=== PATIENT | male | born 1955 | race Caucasian/White ===

== ENCOUNTER 2021-10-23 11:04 | Emergency (ER) | payer OTHER, MEDICAID, SELFPAY ==
[2021-10-23] VITALS (10 sets, daily range): BP systolic 105–134; BP diastolic 70–83; PULSE 80–108; RESP 12–20; TEMP 36.6; O2SAT 97–100
--- OUTSIDE RECORDS SUMMARY | 2021-10-23 11:20 | XMS_ITS ---
:1955 Author Care Team Providers Name Role Phone RAE KLEIN Primary Care Provider [phone] DR. JEFFREY POLLOCK Referring Provider [phone] RAE KLEIN Referring Provider [phone] RAE KLEIN (DIRECT) Primary Care Provider [phone] RUDI KUMAR MD Surgical Oncologist [phone] Allergies Code Code Name Reaction Severity Status Onset System 61304 RxNorm Venlafaxine Abdominal Pain Moderate Active 20 101394 RxNorm Chantix Vomiting Severe Active ? 84296 RxNorm Gabapentin ? ? Active ? 5640 RxNorm Ibuprofen ? ? Active ? 7531 RxNorm Nortriptyline ? ? Active ? 67926 RxNorm Percocet Vomiting Severe Active ? 59278 RxNorm Prozac ? ? Active ? [id number] RxNorm Spinach Vomiting ? Active ? 08300 RxNorm Tizanidine Other Severe Active ? Wellbutrin Hallucinations ? Active ? Medications Name Status Start Date Stop Date ? ? Advair Diskus 100 mcg-50 mcg/dose powder for inhalation Complete d 12/08/2015 06/21/2016 Inhale 1 puff twice a day by inhalation route for 30 days. Advair Diskus 250 mcg-50 mcg/dose powder for inhalation Complete d ? 05/24/2017 Inhale 1 puff twice a day by inhalation route for 30 days. Advair Diskus 500 mcg-50 mcg/dose powder for inhalation Complete d ? 02/11/2021 Inhale 1 puff twice a day by inhalation route for 30 days. albuterol sulfate 2.5 mg/3 mL (0.083 %) solution for nebulizatio n Active ? Not available Inhale 3 mL every 2 hours by nebulization route as needed. albuterol sulfate HFA 90 mcg/actuation aerosol inhaler Active ? Not available inhale 2 puffs by mouth every 4 hours if needed amitriptyline 10 mg tablet Completed ? 05/11 Take 1 tablet every day by oral route. Asprin Ec Low Dose 81 mg tablet,delayed release Active ? Not available Take 1 tablet twice a day by oral route. Atrovent HFA 17 mcg/actuation aerosol inhaler Completed ? 05/14/2018 Inhale 2 puffs 3 times a day by inhalation route as directed fo r 30 days. azelastine 137 mcg (0.1 %) nasal spray aerosol Completed ? 10/30/2020 [place] 2 sprays twice a day by intranasal route. buspirone 7.5 mg tablet Completed ? 02/20/20 18 Take 1 tablet twice a day by oral route as directed for 30 days . carboplatin Active ? Not available celecoxib 200 mg capsule Completed ? 019 Take 1 capsule every day by oral route. Chantix Starting Month Box 0.5 mg (11)-1 mg (42) tablets in dose pack Completed ? 01/12/2019 Take 1 startr pk by oral route. clindamycin HCl 150 mg capsule Completed ? 0 02/07/2017 Take 1 capsule 3 times a day by oral route for 10 days. Combivent Respimat 20 mcg-100 mcg/actuation solution for inhalat ion Completed ? 08/16/2018 Inhale 1 puff 3 times a day by inhalation route as directed. Compazine 10 mg tablet Active ? Not avail able Take 1 tablet 3 times a day by oral route as needed. cyclobenzaprine 5 mg tablet Completed ? 11/13 Take 1 tablet 3 times a day by oral route. Cymbalta 30 mg capsule,delayed release Completed ? 12/15/2018 Take 1 capsule every day by oral route. Debrox 6.5 % ear drops Completed ? 8 INSTILL 5 DROPS INTO AFFECTED EAR(S) BY OTIC ROUTE 1 TIMES PER bedtime 1x per week desipramine 25 mg tablet Completed ? 019 Take 1 tablet twice a day by oral route for 14 days. desipramine 50 mg tablet Completed ? 019 Take 1 tablet twice a day by oral route for 28 days. diclofenac sodium 75 mg tablet,delayed release Completed ? 02/11/2021 Take 1-2 tablets daily as needed doxycycline hyclate 100 mg tablet Completed ? 02/07/2017 Take 1 tablet twice a day by oral route for 1 day. Eliquis 5 mg tablet Completed ? 03/25/2019 Take 1 tablet twice a day by oral route for 30 days. famotidine 40 mg tablet Completed ? 04/13/20 16 Flonase Allergy Relief 50 mcg/actuation nasal spray,suspension C ompleted ? 10/30/2020 [place] 1 spray every day by intranasal route. furosemide 40 mg tablet Completed ? 02/04/20 20 Take 1 tablet by oral route. hydrocodone 5 mg-acetaminophen 325 mg tablet Completed ? 10/10/2019 Take 1 tablet 3 times a day by oral route for 14 days. hydrocodone 7.5 mg-acetaminophen 325 mg tablet Completed ? 12/03/2019 Take 1 tablet every 12 hours by oral route. ipratropium 0.5 mg-albuterol 3 mg (2.5 mg base)/3 mL nebulizatio n soln Active ? Not available Inhale 3 mL 4 times a day by nebulization route as needed for 3 0 days. Keflex 500 mg capsule Completed 02/12/2018 02/21/2018 Take 1 capsule every 6 hours by oral route for 10 days. Kenalog 40 mg/mL suspension for injection Completed ? 02/16/2018 Take 40 mg every day by injection route as directed for 1 day. ketorolac 0.4 % eye drops Completed ? 2015 ketorolac 10 mg tablet Completed ? 6 Keytruda Active ? Not available Lasix Active ? Not available Lasix 20 mg tablet Completed ? 01/12/2019 Take 2 tablets every day by oral route as directed for 5 days. Take in the morning Levaquin 750 mg tablet Completed ? 8 Take 1 tablet every day by oral route as directed. levofloxacin 500 mg tablet Completed ? 04/13 Linzess 145 mcg capsule Completed 02/16/2018 02/22/20 18 Take 1 capsule every day by oral route as directed for 30 days. lisinopril 10 mg tablet Completed 03/18/2021 03/18/20 21 take 1 tablet by mouth once daily lisinopril 20 mg tablet Completed ? 03/24/20 20 take 1 tablet by mouth once daily lisinopril 5 mg tablet Active ? Not avail able take 1 tablet by mouth once daily melatonin 3 mg tablet Completed ? 07/14/2017 Take 1 tablet every day by oral route. methylprednisolone 4 mg Completed ? 04/13/20 16 tablets in a dose pack Miralax 17 gram oral powder packet Completed ? 05/11/2017 Take 1 packet twice a day by oral route. Miralax 17 gram/dose oral powder Completed ? 12/30/2016 Use once daily as needed for constipation morphine 15 mg immediate release tablet Completed ? 05/24/2017 Take 0.5 tablets every 4 hours by oral route. Nicoderm CQ 21 mg/24 hr daily transdermal patch Completed 01/13/2016 04/14/2016 Apply 1 patch every day by transdermal route for 30 days. nortriptyline 10 mg capsule Completed ? 11/13 Take 1-2 capsules at bedtime. ofloxacin 0.3 % eye drops Completed ? 2015 omeprazole 20 mg capsule,delayed release Completed ? 07/03/2020 Take 1 capsule every day by oral route for 90 days. oxycodone 5 mg tablet Completed ? 02/21/2018 Take 1 tablet 3 times a day by oral route with meals for 6 days . paroxetine 20 mg tablet Completed ? 07/10/20 18 start 0.5 tabs a day for 1 week then may increase to 1 tab a da y take at dinner time if this medicine makes you tire. Pepcid 20 mg tablet Completed ? 12/30/2016 Take 1 tablet twice a day by oral route before meals for 30 day s. prednisolone acetate 1 % eye Completed ? drops,suspension prednisone 10 mg tablet Completed ? 05/11/20 17 6 pills day 1, 5 pills day 2 then reduce med by one pill daily prednisone 20 mg tablet Completed ? 04/19/20 19 Take 1 tablet every day by oral route in the morning for 5 days . prednisone 50 mg tablet Completed ? 03/10/20 18 take 1 pill daily for 4 days., then 1/2 pill daily for 4 days Serevent Diskus Completed ? 02/11/2021 Serevent Diskus 50 mcg/dose powder for inhalation Active ? Not available inhale 1 puff by mouth twice a day Spiriva Respimat 2.5 mcg/actuation solution for inhalation Activ e ? Not available Inhale 2 puffs every day by inhalation route for 30 days. Stiolto Respimat 2.5 mcg-2.5 mcg/actuation solution for inhalati on Completed ? 10/02/2020 Inhale 2 puffs every day by inhalation route. Taxol 6 mg/mL concentrate,intravenous Active ? Not available Inject by intravenous route. tizanidine 4 mg tablet Completed ? Take 1 tablet every 6 hours by oral route. tramadol 50 mg tablet Completed ? 03/10/2018 Take 1 tablet twice a day by oral route as needed for 5 days. Trelegy Ellipta 100 mcg-62.5 mcg-25 mcg powder for inhalation Co mpleted ? 02/04/2020 Inhale 1 puff every day by inhalation route. Tylenol 500 mg tablet Completed 03/29/2018 03/12/2019 Take 2 tablets every 8 hours by oral route as needed. Tylenol-Codeine #3 300 mg-30 mg tablet Completed ? 02/16/2018 Take 1 tablet every 6 hours by oral route as needed for 3 days. venlafaxine ER 37.5 mg capsule,extended release 24 hr Completed ? 07/01/2020 Take 1 capsule every day by oral route with meals for 7 days. venlafaxine ER 75 mg capsule,extended release 24 hr Completed ? 07/01/2020 Take 1 capsule every day by oral route for 30 days. Voltaren 1 % topical gel Completed ? 019 APPLY 2 GRAM TO THE AFFECTED AREA(S) BY TOPICAL ROUTE 4 TIMES P ER DAY Zithromax Z-Dakota 250 mg tablet Completed ? TAKE 2 TABLETS (500 MG) BY ORAL ROUTE O NCE DAILY FOR 1 DAY THEN 1 TABLET (250 MG) BY ORAL ROUTE ONCE DAILY FOR 4 DAYS Notes: medication reviewed 16:45 Problems Name Status Onset Date Source ? Eruption Active 09/15/2015 ? Pain in Right Hand Active 09/15/2015 ? Chronic Obstructive Lung Disease Active 11/14/2015 ? Adult Health Examination Active 04/14/2016 ? Knee Pain Unknown 04/15/2016 ? Osteoarthritis of Knee Active 04/16/2016 ? Chronic Back Pain Active 05/05/2016 ? Cellulitis of Skin Unknown 12/30/2016 ? Memory Impairment Active 12/30/2016 ? Injury of Kidney Active 12/30/2016 ? Chronic Neck Pain Active 02/07/2017 ? Pulmonary Embolism Active 05/08/2017 ? Varicose Veins of Lower Extremity Active 05/24/2017 ? Atelectasis Unknown 05/24/2017 ? Constipation Unknown 05/24/2017 ? Fracture of Cervical Spine Unknown 06/03/2017 ? Fracture of Cervical Spine Unknown 09/08/2017 ? Achilles Tendinitis Active 01/02/2018 ? Fracture of Rib Active 02/09/2018 ? Anxiety Active 03/13/2018 ? Closed Fracture of Shaft of Ulna Active 04/10/2018 ? Hyperlipidemia Active 12/01/2018 ? Depressive Disorder Active 03/24/2020 ? Chronic Pain Active 10/05/2020 ? Nodule of Lung Active 08/24/2021 ? Squamous Cell Carcinoma of Lung Active 09/08/2021 ? Tobacco User Active ? ? Headache Disorder Active ? ? Cataract Unknown ? ? Hypertensive Disorder Active ? ? Gastroesophageal Reflux Disease Active ? ? Notes: memory loss Procedures Date Name Performed by ? 02/28/2019 Removal of Inferior Vena Caval Filter In formation not available 05/01/2017 Vena Cava Filter Information not avai lable Notes: POST OP PE , IVC f ilter placed as could not start anticoagulation postoperatively ? Shoulder Joint Surgery Information not a vailable ? Orthopedic Surgery Information not avai lable Notes: Foot surgery ? Cataract Surgery Information not avai lable Notes: right ? Carpal Tunnel Surgery Information not av ailable Notes: right 04/14/2016 XR, Knee, 4 or More View DO Not Use [facility] [address] [place] [address] (Work [address]) 02/07/2017 XR, Cervical Spine, 2 or 3 View DO Not U se [facility] [address] [place] [address] (Work Place) 05/11/2017 XR, Chest, 2 View DO Not Use [facility] [address] [place] [address] (Work Place) 05/24/2017 US, Duplex, Venous, Lower Extremity DO N ot Use [facility] [address], [place] [id number] (Work Place) 05/24/2017 XR, Ribs, Unilateral DO Not Use [facility] [address] [place] [address] (Work Place) 07/26/2017 XR, Neck DO Not Use [facility] [address] [place] [phone] (Work Place) 07/26/2017 XR, Lumbar Spine DO Not Use [facility] [address] [place] [address] (Work Place) 09/08/2017 XR, Cervical Spine DO Not Use [facility] [address] [place] [address] (Work Place) 09/22/2017 XR, Shoulder DO Not Use [facility] [address] [place] [address] (Work Place) 04/03/2018 XR, Forearm [facility] - R adiology [address] [place] [address] (Work Place) 04/10/2018 XR, Forearm [facility] [address] [place] [address] (Work Place) 04/18/2018 XR, Forearm [facility] [address] [place] [address] (Work Place) 05/09/2018 XR, Forearm [facility] [address] [place] [address] (Work Place) 06/05/2018 XR, Forearm [facility] [address] [place] [address] (Work Place) 07/03/2018 XR, [facility] adiology [address] [place] [phone] (Work Place) 07/18/2018 XR, Forearm [facility] [address] [place] [address] (Work Place) 08/01/2018 XR, Lumbosacral Spine, 2 or 3 View, [facility] - Radiology Bending Only [address] [place] [address] (Work Place) 08/01/2018 XR, Cervical Spine, 2 or 3 View [facility] [address] [place] [address] (Work Place) 08/21/2018 XR, Forearm [facility] R adiology [address] [place] [address] (Work Place) 10/02/2018 XR, Forearm [facility] [address] [place] [address] (Work Place) 10/20/2018 XR, Hand, 2 View [facility] [address] [place] [address] (Work Place) 10/25/2018 XR, Finger(s), 2 or More View [facility] [address] [place] [address] (Work Place) 12/01/2018 XR, Lumbosacral Spine, 2 or 3 View, [facility] Radiology Bending Only [address] [place] [address] (Work Place) 12/11/2018 CT, Lumbar Spine, W/o Contrast [facility] - Radiology [address] [place] [address] (Work Place) 01/22/2019 XR, Hip, Unilateral, 2 or 3 View [facility] [address] [place] [address] (Work Place) 03/24/2020 XR, Chest, 2 View [facility] adiology [address] [place] [address] (Work Place) 07/01/2020 Electrocardiogram [facility] - Internal Medic ine [address] [place] [phone] (Wor [place] Place) 04/29/2021 US, Abdominal Aorta [facility] adiology [address] [place] [phone] (Work Place) 04/29/2021 LDCT, Chest, for Lung Cancer Screening D [facility] [place] [address] (Work Place) Notes: 07/14/16 L4-5 laminectomy and fusion with local bone graft by [facility]- Results Lab Results Date Name Specimen Result Interpretation Description Value Range Status Address ? 10/14/2021 CBC W/ [id number] Low Wbc 2.2 10^3/mm^3 4.8-10.8 Fi nal [facility] Auto Diff 10^3/mm^3 Hosp ital Laboratory & Pathology: [address] [place] [address] ? ? [id number] Normal Rbc 4.42 4.20-5.90 [facility]^6/[facility]^3 10^6/mm^3 Hosp ital Laboratory & Pathology: [address] [place] [address] ? ? [id number] Normal Hgb 13.8 g/dL 13.5-17.5 Final Co [facility]age g/dL [facility] Laboratory & Pathology: [address] [place] [address] ? ? [id number] Normal Hct 43 % 40-50 % Final [facility] Laboratory & Pathology: [address] [place] [address] ? ? [id number] High Mcv 97.5 fL 80.0-97.0 Final [facility] Laboratory & Pathology: [address] [place] [address] ? ? [id number] Normal Mch 31.2 pg 27.5-32.1 Final [facility] pg [facility] Laboratory & Pathology: [address] [place] [address] ? ? [id number] Low Mchc 32 g/dL 33-36 g/dL Final [facility] Laboratory & Pathology: [address] [place] [address] ? ? [id number] Normal Rdw 13.4 % 11.6-14.8 Final [facility] Laboratory & Pathology: [address] [place] [address] ? ? [id number] Normal Platel 166 10^3/mm^3 150-400 Final [facility] ets 10^3/mm^3 Hospita l Laboratory & Pathology: [address] [place] [address] 10/14/2021 CBC, [id number] Low %Neutr 26 % 40-75 % Final Co ttage Reflex ophil [facility] Manual Laboratory Diff & Pathology: [address] [place] [address] ? ? [id number] High %Lymph 48 % 20-45 % Final [facility] e ocyte [facility] Laboratory & Pathology: [address] [place] [address] ? ? [id number] Normal %Monoc 10 % 2-10 % Final [facility] Laboratory & Pathology: [address] [place] [address] ? ? [id number] High %Eosin 14 % 1-6 % Final [facility] Laboratory & Pathology: [address] [place] [address] ? ? [id number] ? %Atypi 2 % ? Final [facility] Lymph Laboratory & Pathology: [address] [place] [address] ? ? [id number] Normal Platel normal normal Final [facility] Estimat Laborator y e & Pathology: [address] [place] [address] ? ? [id number] Normal Large absent absent Final [facility] Platele & ts Pathology: [address] [place] [address] ? ? [id number] Normal Platel absent absent Final [facility] Clumps Laboratory & Pathology: [address] [place] [address] 10/14/2021 CMP, [id number] Normal Na 141 mEq/L 136-145 Final [facility] Serum or mEq/L [facility] Plasma Laboratory & Pathology: [address] [place] [address] ? ? [id number] Normal K 4.8 mEq/L 3.5-5.1 Final [facility] mEq/L [facility] Laboratory & Pathology: [address] [place] [address] ? ? [id number] Normal Cl 101 mEq/L 98-107 Final [facility] mEq/L [facility] Laboratory & Pathology: [address] [place] [address] ? ? [id number] Normal Co2 31 mEq/L 21-31 Final [facility] ge mEq/L [facility] Laboratory & Pathology: [address] [place] [address] ? ? [id number] ? Agap 13.7 ? Final [facility] calculation Hospi janneth Laboratory & Pathology: [address] [place] [address] ? ? [id number] High Glu 107 mg/dL 70-100 Final [facility] mg/dL [facility] Laboratory & Pathology: [address] [place] [address] ? ? [id number] Normal Bun 10 mg/dL 7-18 mg/dL Final [facility] Laboratory & Pathology: [address] [place] [address] ? ? [id number] Normal Creat 0.75 mg/dL 0.70-1.30 Final [facility] mg/dL [facility] Laboratory & Pathology: [address] [place] [address] ? ? [id number] ? Bn/cr 13.9 ratio ? Final [facility] Laboratory & Pathology: [address] [place] [address] ? ? [id number] Low Ca 8.2 mg/dL 8.5-10.1 Final [facility] mg/dL [facility] Laboratory & Pathology: [address] [place] [address] ? ? [id number] Normal Alkp 111 U/L 38-126 U/L Final [facility] Laboratory & Pathology: [address] [place] [address] ? ? [id number] Normal Alt 24 U/L 16-63 U/L Final [facility] Laboratory & Pathology: [address] [place] [address] ? ? [id number] Low Ast 13 U/L 15-37 U/L Final [facility] Laboratory & Pathology: [address] [place] [address] ? ? [id number] Normal Tbil 0.3 mg/dL <=1.2 Final [facility] mg/dL [facility] Laboratory & Pathology: [address] [place] [address] ? ? [id number] Low Tp 6.2 g/dL 6.4-8.2 Final [facility] g/dL [facility] Laboratory & Pathology: [address] [place] [address] ? ? [id number] Normal Alb 3.5 g/dL 3.4-5.0 Final [facility] g/dL [facility] Laboratory & Pathology: [address] [place] [address] ? ? [id number] ? Glob 2.74 mg/dL ? Final [facility] Laboratory & Pathology: [address] [place] [address] ? ? [id number] ? A/g 1.3 calc ? Final [facility] Laboratory & Pathology: [address] [place] [address] ? ? [id number] ? Egfraa 126.68 ? Final [facility] Laboratory & Pathology: [address] [place] [address] ? ? [id number] ? Egfrna 104.52 ? Final [facility] Laboratory & Pathology: [address] [place] [address] 10/14/2021 Magnesium [id number] Normal mg 2.0 mg/dL 1.8-2.4 Fin n[facility] mg/dL Hospital or Plasma Laborat ory & Pathology: [address] [place] [address] 10/14/2021 T4, Free, [id number] Low Ft4 0.71 NG/dL 0.76-1.46 Final [facility] Serum NG/dL Hospital Laboratory & Pathology: [address] [place] [address] 10/14/2021 TSH, [id number] Normal Tsh 2.208 mIU/mL 0.340-3.74 Final [facility] Serum or 0 mIU/mL Hospit al Plasma Laboratory & Pathology: [address] [place] [address] 09/29/2021 CBC W/ [id number] Normal Wbc 7.2 10^3/mm^3 4.8-10.8 Fi nal [facility] Auto Diff 10^3/mm^3 Hosp ital Laboratory & Pathology: [address] [place] [address] ? ? [id number] Normal Rbc 5.06 4.20-5.90 Final [facility] 10^6/mm^3 10^6/mm^3 Hosp ital Laboratory & Pathology: [address] [place] [address] ? ? [id number] Normal Hgb 15.8 g/dL 13.5-17.5 Final [facility] g/dL Hospital Laboratory & Pathology: [address] [place] [address] ? ? [id number] Normal Hct 49 % 40-50 % Final [facility] Laboratory & Pathology: [address] [place] [address] ? ? [id number] Normal Mcv 95.8 fL 80.0-97.0 Final [facility] Laboratory & Pathology: [address] [place] [address] ? ? [id number] Normal Mch 31.2 pg 27.5-32.1 Final [facility] pg [facility] Laboratory & Pathology: [address] [place] [address] ? ? [id number] Normal Mchc 33 g/dL 33-36 g/dL Final [facility] Laboratory & Pathology: [address] [place] [address] ? ? [id number] Normal Rdw 13.3 % 11.6-14.8 Final [facility] Laboratory & Pathology: [address] [place] [address] ? ? [id number] Normal Platel 250 10^3/mm^3 150-400 Final [facility] ets 10^3/mm^3 Hospita l Laboratory & Pathology: [address] [place] [address] ? ? [id number] Normal Ne# 4.89 1.20-6.70 Final [facility] 10^3/mm^3 10^3/mm^3 Hosp ital Laboratory & Pathology: [address] [place] [address] ? ? [id number] Normal Ly# 1.75 1.20-3.40 Final [place] 10^3/mm^3 10^3/mm^3 Hosp ital Laboratory & Pathology: [address] [place] [address] ? ? [id number] Normal Mo# 0.47 0.11-0.70 Final [place] 10^3/mm^3 10^3/mm^3 Hosp ital Laboratory & Pathology: [address] [place] [address] ? ? [id number] Normal Eo# 0.10 0.00-0.70 Final [place] 10^3/mm^3 10^3/mm^3 Hosp ital Laboratory & Pathology: [address] [place] [address] ? ? [id number] Normal Ba# 0.02 0.00-0.20 Final [place] 10^3/mm^3 10^3/mm^3 Hosp ital Laboratory & Pathology: [address] [place] [address] ? ? [id number] Normal Neut% 68 % per 100 40-74 % Final [facility] WBC per 100 Hospital WBC Laboratory & Pathology: [address] [place] [address] ? ? [id number] Normal Ly% 24 % per 100 19-48 % Final [facility] WBC per 100 Hospital WBC Laboratory & Pathology: [address] [place] [address] ? ? [id number] Normal Mo% 6.5 % per 100 3.0-10.0 % [place] [facility] WBC per 100 Hospital WBC Laboratory & Pathology: [address] [place] [address] ? ? [id number] Normal Eo% 1.4 % per 100 1.0-7.0 % Final [facility] WBC per 100 Hospital WBC Laboratory & Pathology: [address] [place] [address] ? ? [id number] Normal Ba% 0.3 % per 100 0.0-2.0 % Final [place] WBC per 100 Hospital WBC Laboratory & Pathology: [address] [place] [address] 09/29/2021 Magnesium [id number] Normal mg 2.3 mg/dL 1.8-2.4 Fin al [place] , Serum mg/dL Hospital or Plasma Laborat ory & Pathology: [address] [place] [address] 09/29/2021 CMP, [id number] Normal Na 139 mEq/L 136-145 Final [facility] or mEq/L Hospital Plasma Laboratory & Pathology: [address] [place] [address] ? ? [id number] Normal K 4.4 mEq/L 3.5-5.1 Final [facility] mEq/L [facility] Laboratory & Pathology: [address] [place] [address] ? ? [id number] Normal Cl 100 mEq/L 98-107 Final [facility] mEq/L [facility] Laboratory & Pathology: [address] [place] [address] ? ? [id number] High Co2 34 mEq/L 21-31 Final [facility] ge mEq/L [facility] Laboratory & Pathology: [address] [place] [address] ? ? [id number] ? Agap 8.8 ? Final [facility] calculation Hospi janneth Laboratory & Pathology: [address] [place] [address] ? ? [id number] High Glu 101 mg/dL 70-100 Final [facility] mg/dL [facility] Laboratory & Pathology: [address] [place] [address] ? ? [id number] Normal Bun 11 mg/dL 7-18 mg/dL Final [facility] Laboratory & Pathology: [address] [place] [address] ? ? [id number] Normal Creat 0.96 mg/dL 0.70-1.30 Final [facility] mg/dL Hospital Laboratory & Pathology: [address] [place] [address] ? ? [id number] ? Bn/cr 11.3 ratio ? Final [facility] Laboratory & Pathology: [address] [place] [address] ? ? [id number] Normal Ca 8.6 mg/dL 8.5-10.1 Final [facility] mg/dL [facility] Laboratory & Pathology: [address] [place] [address] ? ? [id number] Normal Alkp 110 U/L 38-126 U/L Final [facility] Laboratory & Pathology: [address] [place] [address] ? ? [id number] Normal Alt 20 U/L 16-63 U/L Final [facility] Laboratory & Pathology: [address] [place] [address] ? ? [id number] Low Ast 14 U/L 15-37 U/L Final [facility] Laboratory & Pathology: [address] [place] [address] ? ? [id number] Normal Tbil 0.4 mg/dL <=1.2 Final [facility] mg/dL [facility] Laboratory & Pathology: [address] [place] [address] ? ? [id number] Normal Tp 6.9 g/dL 6.4-8.2 Final [facility] age g/dL [facility] Laboratory & Pathology: [address] [place] [address] ? ? [id number] Normal Alb 3.8 g/dL 3.4-5.0 Final [facility] age g/dL [facility] Laboratory & Pathology: [address] [place] [address] ? ? [id number] ? Glob 3.09 mg/dL ? Final [facility] Laboratory & Pathology: [address] [place] [address] ? ? [id number] ? A/g 1.2 calc ? Final [facility] Laboratory & Pathology: [address] [place] [address] ? ? [id number] ? Egfraa 95.27 ? Final [facility] Laboratory & Pathology: [address] [place] [address] ? ? [id number] ? Egfrna 78.61 ? Final [facility] Laboratory & Pathology: [address] [place] [address] 04/24/2021 CBC W/ WB Normal Wbc 6.6 10^3/mm^3 4.8-10.8 Kenyetta rangel [facility] Auto Diff 10^3/mm^3 [facility] Laboratory & Pathology: [address] [place] [address] ? ? WB Normal Rbc 5.25 4.20-5.90 Final [facility] 10^6/mm^3 10^6/mm^3 [facility] Laboratory & Pathology: [address] [place] [address] ? ? WB Normal Hgb 15.8 g/dL 13.5-17.5 Final [facility] g/dL [facility] Laboratory & Pathology: [address] [place] [address] ? ? WB High Hct 51 % 40-50 % Final [facility] Laboratory & Pathology: [address] [place] [address] ? ? WB High Mcv 97.7 fL 80.0-97.[address] [facility] Laboratory & Pathology: [address] [place] [address] ? ? WB Normal Mch 30.1 pg 27.5-32.1 Final [facility] Laboratory & Pathology: [address] [place] [address] ? ? WB Low Mchc 31 g/dL 33-36 g/dL Final [facility] Laboratory & Pathology: [address] [place] [address] ? ? WB Normal Rdw 14.5 % 11.6-14.8 [facility] Pathology: [address] [place] [address] ? ? WB Normal Platel 209 10^3/mm^3 150-400 Final [facility] 10^3/mm^3 [facility]ospita l Laboratory & Pathology: [address] [place] [address] ? ? WB Normal Ne# 4.20 1.20-6.70 Final [facility] 10^3/mm^3 10^3/mm^3 [facility]osp [facility] Laboratory & Pathology: [address] [place] [address] ? ? WB Normal Ly# 1.44 1.20-3.40 Final [facility] 10^3/mm^3 10^3/mm^3 [facility]osp [facility] Laboratory & Pathology: [address] [place] [address] ? ? WB Normal Mo# 0.66 0.11-0.70 Final [facility] 10^3/mm^3 10^3/mm^3 [facility]osp [facility] Laboratory & Pathology: [address] [place] [address] ? ? WB Normal Eo# 0.23 0.00-0.70 Final [facility] 10^3/mm^3 10^3/mm^3 [facility]osp [facility] Laboratory & Pathology: [address] [place] [address] ? ? WB Normal Ba# 0.03 0.00-0.20 Final [facility] 10^3/mm^3 10^3/mm^3 [facility]osp ital Laboratory & Pathology: [address] [place] [address] ? ? WB Normal Neut% 64 % per 100 40-74 % Final [facility] WBC per 100 Hospital WBC Laboratory & Pathology: [address] [place] [address] ? ? WB Normal Ly% 22 % per 100 19-48 % Final [facility] WBC per 100 Hospital WBC Laboratory & Pathology: [address] [place] [address] ? ? WB High Mo% 10.1 % per 3.0-10.0 % Final [facility] 100 WBC per 100 Hospital WBC Laboratory & Pathology: [address] [place] [address] ? ? WB Normal Eo% 3.5 % per 100 1.0-7.0 % Final [facility] per 100 Hospital WBC Laboratory & Pathology: [address] [place] [address] ? ? WB Normal Ba% 0.5 % per 100 0.0-2.0 % Final [facility] per 100 Hospital WBC Laboratory & Pathology: [address] [place] [address] 04/24/2021 Lipid [id number] High Chol 205 mg/dL <200 mg/dL Thanh rucker [facility] Blood Laboratory & Pathology: [address] [place] [address] ? ? [id number] High Hdl 67 mg/dL 40-60 [facility] Laboratory & Pathology: [address] [place] [address] ? ? [id number] Normal Trig 87 mg/dL 30-150 Final [facility] Laboratory & Pathology: [address] [place] [address] ? ? [id number] High LDL(C) 121 calc <100 calc Final [facility] Laboratory & Pathology: [address] [place] [address] ? ? [id number] ? Risk 3.1 calc ? Final [facility] Laboratory & Pathology: [address] [place] [address] 04/24/2021 CMP, [id number] Normal Na 141 mEq/L 136-145 Final [facility] Serum or mEq/L [facility] Plasma Laboratory & Pathology: [address] [place] [address] ? ? [id number] Normal K 5.0 mEq/L 3.5-5.1 Final [facility] mEq/L [facility] Laboratory & Pathology: [address] [place] [address] ? ? [id number] Normal Cl 102 mEq/L 98-107 Final [facility] age mEq/L [facility] Laboratory & Pathology: [address] [place] [address] ? ? [id number] High Co2 38 mEq/L 21-31 Final [facility] mEq/L [facility] Laboratory & Pathology: [address] [place] [address] ? ? [id number] ? Agap 6.9 ? Final [facility] calculation Hospi janneth Laboratory & Pathology: [address] [place] [address] ? ? [id number] Normal Glu 99 mg/dL 70-100 Final [facility] ge mg/dL [facility] Laboratory & Pathology: [address] [place] [address] ? ? [id number] Normal Bun 14 mg/dL 7-18 mg/dL Final [facility] Laboratory & Pathology: [address] [place] [address] ? ? [id number] Normal Creat 0.96 mg/dL 0.70-1.30 Final [facility] mg/dL [facility] Laboratory & Pathology: [address] [place] [address] ? ? [id number] ? Bn/cr 15.0 ratio ? Final [facility] Laboratory & Pathology: [address] [place] [address] ? ? [id number] Normal Ca 9.0 mg/dL 8.5-10.1 Final [facility] mg/dL [facility] Laboratory & Pathology: [address] [place] [address] ? ? [id number] Normal Alkp 96 U/L 38-126 U/L Final [facility] Laboratory & Pathology: [address] [place] [address] ? ? [id number] Normal Alt 22 U/L 16-63 U/L Final [facility] Laboratory & Pathology: [address] [place] [address] ? ? [id number] Low Ast 13 U/L 15-37 U/L Final [facility] Laboratory & Pathology: [address] [place] [address] ? ? [id number] Normal Tbil 0.4 mg/dL <=1.2 Final [facility] mg/dL [facility] Laboratory & Pathology: [address] [place] [address] ? ? [id number] Normal Tp 6.8 g/dL 6.4-8.2 Final [facility] g/dL [facility] Laboratory & Pathology: [address] [place] [address] ? ? [id number] Normal Alb 3.6 g/dL 3.4-5.0 Final [facility] g/dL [facility] Laboratory & Pathology: [address] [place] [address] ? ? [id number] ? Glob 3.23 mg/dL ? Final [facility] Laboratory & Pathology: [address] [place] [address] ? ? [id number] ? A/g 1.1 calc ? Final [facility] Laboratory & Pathology: [address] [place] [address] ? ? [id number] ? Egfraa 95.27 ? Final [facility] Laboratory & Pathology: [address] [place] [address] ? ? [id number] ? Egfrna 78.61 ? Final [facility] Laboratory & Pathology: [address] [place] [address] 07/15/2020 SARS CoV ? Upper nasopharyngea ? Kenyetta Yo 2 RNA [facility] (COVID-19 chelsy Mendez [facility] ), QL, Source & cardiac specialist-PCR, Patholog y: Respirato 90 [facility] ? ? Normal Sars not detected not Final [facility] Cov-2 detected Hospital RNA Laboratory (Covid- & 19) Pathology: [address] [place] [address] 07/07/2020 BMP, P High Glu 105 mg/dL 70-100 Final [facility] or mg/dL [facility] Plasma Laboratory & Pathology: [address] [place] [address] ? ? P Normal Bun 10 mg/dL 7-18 mg/dL Final [facility] Laboratory & Pathology: [address] [place] [address] ? ? P Normal Creat 1.03 mg/dL 0.70-1.30 Final [facility] mg/dL [facility] Laboratory & Pathology: [address] [place] [address] ? ? P Normal Na 141 mEq/L 136-145 Final [facility] e mEq/L [facility] Laboratory & Pathology: [address] [place] [address] ? ? P Normal K 4.9 mEq/L 3.5-5.1 Final [facility] mEq/L [facility] Laboratory & Pathology: [address] [place] [address] ? ? P Normal Cl 100 mEq/L 98-107 Final [facility] mEq/L [facility] Laboratory & Pathology: [address] [place] [address] ? ? P High Co2 36 mEq/L 21-31 Final [facility] mEq/L [facility] Laboratory & Pathology: [address] [place] [address] ? ? P Normal Ca 8.8 mg/dL 8.5-10.1 Final [facility] ge mg/dL [facility] Laboratory & Pathology: [address] [place] [address] ? ? P ? Agap 9.6 ? Final [facility] calculation [facility] Laboratory & Pathology: [address] [place] [address] ? ? P ? Bn/cr 9.8 ratio ? Final [facility] Laboratory & Pathology: [address] [place] [address] ? ? P ? Egfraa 88.12 ? Final [facility] Laboratory & Pathology: [address] [place] [address] ? ? P ? Egfrna 72.71 ? Final [facility] Laboratory & Pathology: [address] [place] [address] 07/07/2020 CBC W/ WB Normal Wbc 5.7 10^3/mm^3 4.8-10.8 Kenyetta l [facility] Auto Diff 10^3/mm^3 Hosp ital Laboratory & Pathology: [address] [place] [address] ? ? WB Normal Rbc 4.91 4.20-5.90 Final [facility] 10^6/mm^3 10^6/mm^3 Hosp ital Laboratory & Pathology: [address] [place] [address] ? ? WB Normal Hgb 14.7 g/dL 13.5-17.5 Final [facility] age g/dL Hospital Laboratory & Pathology: [address] [place] [address] ? ? WB Normal Hct 47 % 40-50 % Final [facility] Laboratory & Pathology: [address] [place] [address] ? ? WB Normal Mcv 95.5 fL 80.0-97.[address] [facility] Laboratory & Pathology: [address] [place] [address] ? ? WB Normal Mch 29.9 pg 27.5-32.1 Final [facility] pg [facility] Laboratory & Pathology: [address] [place] [address] ? ? WB Low Mchc 31 g/dL 33-36 g/dL Final [facility] Laboratory & Pathology: [address] [place] [address] ? ? WB Normal Rdw 14.1 % 11.6-14.8 Final [facility] % Hospital Laboratory & Pathology: [address] [place] [address] ? ? WB Normal Platel 202 10^3/mm^3 150-400 Final [facility] 10^3/mm^3 Hospita l Laboratory & Pathology: [address] [place] [address] ? ? WB Normal Ne# 3.18 1.20-6.70 Final [facility] 10^3/mm^3 10^3/mm^3 Hosp ital Laboratory & Pathology: [address] [place] [address] ? ? WB Normal Ly# 1.65 1.20-3.40 Final [facility] 10^3/mm^3 10^3/mm^3 [facility]osp [facility] Laboratory & Pathology: [address] [place] [address] ? ? WB Normal Mo# 0.59 0.11-0.70 Final [facility] 10^3/mm^3 10^3/mm^3 [facility]osp [facility] Laboratory & Pathology: [address] [place] [address] ? ? WB Normal Eo# 0.26 0.00-0.70 Final [facility] 10^3/mm^3 10^3/mm^3 [facility]osp [facility] Laboratory & Pathology: [address] [place] [address] ? ? WB Normal Ba# 0.01 0.00-0.20 Final [facility] 10^3/mm^3 10^3/mm^3 Hosp [facility] Laboratory & Pathology: [address] [place] [address] ? ? WB Normal Neut% 56 % per 100 40-74 % Final [facility] WBC per 100 Hospital WBC Laboratory & Pathology: [address] [place] [address] ? ? WB Normal Ly% 29 % per 100 19-48 % Final [facility] WBC per 100 Hospital WBC Laboratory & Pathology: [address] [place] [address] ? ? WB High Mo% 10.4 % per 3.0-10.0 % Final [facility] 100 WBC per 100 Hospital WBC Laboratory & Pathology: [address] [place] [address] ? ? WB Normal Eo% 4.6 % per 100 1.0-7.0 % Final [facility] per 100 Hospital WBC Laboratory & Pathology: [address] [place] [address] ? ? WB Normal Ba% 0.2 % per 100 0.0-2.0 % Final [facility] per 100 Hospital WBC Laboratory & Pathology: [address] [place] [address] 07/01/2020 Electroca ? Rate & 94 ? ? Rh c - rdiogram [facility]: [address] [place] [address] ? ? ? QRS 87 ? ? Rhc - [facility] Internal n Medicine: [address] [facility] ? ? ? Qrs 113 ? ? [facility] - Internal Medicine: [address] [facility] ? ? ? SC 158 ? ? Rh - [facility] Internal l Medicine: [address] [facility] ? ? ? QT 426 ? ? [facility] - [facility] Internal l Medicine: [address] [place] [address] 02/28/2020 BMP, P High Glu 113 mg/dL 70-100 Final [facility] Serum or mg/dL [facility] Plasma Laboratory & Pathology: [address] [place] [address] ? ? P High Bun 19 mg/dL 7-18 mg/dL Final [facility] Laboratory & Pathology: [address] [place] [address] ? ? P Normal Creat 1.13 mg/dL 0.70-1.30 Final [facility] mg/dL [facility] Laboratory & Pathology: [address] [place] [address] ? ? P Normal Na 141 mEq/L 136-145 Final [facility] e mEq/L [facility] Laboratory & Pathology: [address] [place] [address] ? ? P High K 5.3 mEq/L 3.5-5.1 Final [facility] mEq/L [facility] Laboratory & Pathology: [address] [place] [address] ? ? P Normal Cl 105 mEq/L 98-107 Final [facility] mEq/L [facility] Laboratory & Pathology: [address] [place] [address] ? ? P High Co2 33 mEq/L 21-31 Final [facility] mEq/L [facility] Laboratory & Pathology: [address] [place] [address] ? ? P Normal Ca 8.6 mg/dL 8.5-10.1 Final [facility] ge mg/dL [facility] Laboratory & Pathology: [address] [place] [address] ? ? P ? Agap 7.4 ? Final [facility] calculation Hospi janneth Laboratory & Pathology: [address] [place] [address] ? ? P ? Bn/cr 17.1 ratio ? Final [facility] Laboratory & Pathology: [address] [place] [address] ? ? P ? Egfraa 79.18 ? Final [facility] Laboratory & Pathology: [address] [place] [address] ? ? P ? Egfrna 65.33 ? Final [facility] Laboratory & Pathology: [address] [place] [address] 02/28/2020 Lipid P High Chol 216 mg/dL <200 mg/dL Final [facility] Serum Laboratory & Pathology: [address] [place] [address] ? ? P Low Hdl 39 mg/dL 40-60 Final [facility] mg/dL [facility] Laboratory & Pathology: [address] [place] [address] ? ? P High Trig 207 mg/dL 30-150 Final [facility] mg/dL [facility] Laboratory & Pathology: [address] [place] [address] ? ? P High LDL(C) 136 calc <100 calc Final [facility] Laboratory & Pathology: [address] [place] [address] ? ? P ? Risk 5.5 calc ? Final [facility] Laboratory & Pathology: [address] [place] [address] 12/22/2018 BNP WB Normal Bnp 11 pg/mL 0-100 Final [facility] (B-type pg/mL [facility] ic & Peptide), Patholo gy: Blood [address] [place] [address] 12/22/2018 CMP, P Normal Na 142 mEq/L 136-145 Final [facility] Serum or mEq/L [facility] Plasma Laboratory & Pathology: [address] [place] [address] ? ? P Normal K 5.1 mEq/L 3.5-5.1 Final [facility] mEq/L [facility] Laboratory & Pathology: [address] [place] [address] ? ? P Normal Cl 100 mEq/L 98-107 Final [facility] mEq/L [facility] Laboratory & Pathology: [address] [place] [address] ? ? P High Co2 36 mEq/L 21-32 Final [facility] mEq/L [facility] Laboratory & Pathology: [address] [place] [address] ? ? P ? Agap 19.7 ratio ? Final [facility] Laboratory & Pathology: [address] [place] [address] ? ? P High Glu 115.0 mg/dL 70.0-100.0 Final [facility] mg/dL [facility] Laboratory & Pathology: [address] [place] [address] ? ? P Normal Bun 9 mg/dL 7-18 mg/dL Final [facility] Laboratory & Pathology: [address] [place] [address] ? ? P Normal Creat 0.95 mg/dL 0.70-1.30 Final [facility] mg/dL [facility] Laboratory & Pathology: [address] [place] [address] ? ? P ? Bn/cr 9.8 calc ? Final [facility] Laboratory & Pathology: [address] [place] [address] ? ? P Normal Ca 9.1 mg/dL 8.5-10.1 Final [facility] mg/dL [facility] Laboratory & Pathology: [address] [place] [address] ? ? P ? Alkp 85 U/L ? [facility] Laboratory & Pathology: [address] [place] [address] ? ? P Normal Alt 23 U/L 16-63 U/L Final [facility] Laboratory & Pathology: [address] [place] [address] ? ? P Low Ast 14 U/L 15-37 U/L [facility] Laboratory & Pathology: [address] [place] [address] ? ? P Normal Tbil 0.3 mg/dL <=1.2 Final [facility] mg/[facility] Laboratory & Pathology: [address] [place] [address] ? ? P Normal Tp 6.9 g/dL 6.4-8.2 Final [facility] g/dL [facility] Laboratory & Pathology: [address] [place] [address] ? ? P Normal Alb 3.8 g/dL 3.4-5.0 Final [facility] g/dL [facility] Laboratory & Pathology: [address] [place] [address] ? ? P ? Glob 3.05 mg/dL ? Final [facility] Laboratory & Pathology: [address] [place] [address] ? ? P ? A/g 1.3 calc ? Final [facility] Laboratory & Pathology: [address] [place] [address] ? ? P ? Egfraa 97.36 ? Final [facility] Laboratory & Pathology: [address] [place] [address] ? ? P ? Egfrna 80.33 ? Final [facility] Laboratory & Pathology: [address] [place] [address] 12/22/2018 Urine U ABNORMA Thc positive negative [facility] Screen Laboratory & Pathology: [address] [place] [address] ? ? U Normal Pcp negative negative Final [facility] Laboratory & Pathology: [address] [place] [address] ? ? U Normal Belle negative negative Final [facility] Laboratory & Pathology: [address] [place] [address] ? ? U Normal Metha negative negative Final [facility] Laboratory & Pathology: [address] [place] [address] ? ? U ABNORMA Opi positive negative Final [facility] Laboratory & Pathology: [address] [place] [address] ? ? U Normal Amph negative negative Final [facility] Laboratory & Pathology: [address] [place] [address] ? ? U Normal Bzo negative negative Final [facility] Laboratory & Pathology: [address] [place] [address] ? ? U Normal Tca negative negative Final [facility] Laboratory & Pathology: [address] [place] [address] ? ? U Normal Mtd negative negative Final [facility] Laboratory & Pathology: [address] [place] [address] ? ? U Normal Bar negative negative Final [facility] Laboratory & Pathology: [address] [place] [address] ? ? U Normal Oxy negative negative Final [facility] Laboratory & Pathology: [address] [place] [address] ? ? U Normal Bupr negative negative Final [facility] Laboratory & Pathology: [address] [place] [address] 12/15/2018 Urinalysi U Normal Color yellow yellow Final [facility], [facility] Dipstick, Laborat ory Reflex & Micro Pathology: [address] [place] [address] ? ? U Normal Felipe clear clear Final [facility] Laboratory & Pathology: [address] [place] [address] ? ? U ABNORMA Spgr 1.010 1.015-1.02 Final [facility] Laboratory [facility] Pathology: [address] [place] [address] ? ? U ? Ph 5.5 ? Final [facility] Laboratory & Pathology: [address] [place] [address] ? ? U Normal Gluc negative negative Final [facility] Laboratory & Pathology: [address] [place] [address] ? ? U Normal Bilb negative negative Final [facility] Laboratory & Pathology: [address] [place] [address] ? ? U Normal Ket negative negative Final [facility] Laboratory & Pathology: [address] [place] [address] ? ? U Normal Bld negative negative Final [facility] Laboratory & Pathology: [address] [place] [address] ? ? U Normal Prot negative negative Final [facility] Laboratory & Pathology: [address] [place] [address] ? ? U Normal Uro 0.2 E.U./dL 0.2 [facility] Laboratory & Pathology: [address] [place] [address] ? ? U Normal Nit negative negative Final [facility] Laboratory & Pathology: [address] [place] [address] ? ? U Normal Leuko negative negative Final [facility] Laboratory & Pathology: [address] [place] [address] 12/11/2018 Urine U Normal Thc negative negative Final [facility] Screen Laboratory & Pathology: [address] [place] [address] ? ? U Normal Pcp negative negative Final [facility] Laboratory & Pathology: [address] [place] [address] ? ? U Normal Belle negative negative Final [facility] Laboratory & Pathology: [address] [place] [address] ? ? U Normal Metha negative negative Final [facility] Laboratory & Pathology: [address] [place] [address] ? ? U ABNORMA Opi positive negative [facility] Laboratory & Pathology: [address] [place] [address] ? ? U Normal Amph negative negative Final [facility] Laboratory & Pathology: [address] [place] [address] ? ? U Normal Bzo negative negative Final [facility] Laboratory & Pathology: [address] [place] [address] ? ? U Normal Tca negative negative Final [facility] Laboratory & Pathology: [address] [place] [address] ? ? U Normal Mtd negative negative Final [facility] Laboratory & Pathology: [address] [place] [address] ? ? U Normal Bar negative negative Final [facility] Laboratory & Pathology: [address] [place] [address] ? ? U Normal Oxy negative negative Final [facility] Laboratory & Pathology: [address] [place] [address] ? ? U Normal Bupr negative negative Final [facility] Laboratory & Pathology: [address] [place] [address] 11/28/2018 BMP, P High Glu 119.0 mg/dL 70.0-100.0 Kenyetta [facility] Serum or mg/dL [facility] Plasma Laboratory & Pathology: [address] [place] [address] ? ? P Normal Bun 13 mg/dL 7-18 mg/dL Final [facility] Laboratory & Pathology: [address] [place] [address] ? ? P Normal Creat 0.97 mg/dL 0.70-1.30 Final [facility] mg/dL [facility] Laboratory & Pathology: [address] [place] [address] ? ? P Normal Na 144 mEq/L 136-145 Final [facility] mEq/L [facility] Laboratory & Pathology: [address] [place] [address] ? ? P Normal K 4.8 mEq/L 3.5-5.1 Final [facility] mEq/L [facility] Laboratory & Pathology: [address] [place] [address] ? ? P Normal Cl 103 mEq/L 98-107 Final [facility] mEq/L [facility] Laboratory & Pathology: [address] [place] [address] ? ? P High Co2 36 mEq/L 21-32 Final [facility] mEq/L [facility] Laboratory & Pathology: [address] [place] [address] ? ? P Normal Ca 8.8 mg/dL 8.5-10.1 Final [facility] ge mg/dL [facility] Laboratory & Pathology: [address] [place] [address] ? ? P ? Agap 10.0 ratio ? Final [facility] Laboratory & Pathology: [address] [place] [address] ? ? P ? Bn/cr 13.8 calc ? Final [facility] Laboratory & Pathology: [address] [place] [address] ? ? P ? Egfraa 95.05 ? Final [facility] Laboratory & Pathology: [address] [place] [address] ? ? P ? Egfrna 78.42 ? Final [facility] Laboratory & Pathology: [address] [place] [address] 11/28/2018 Lipid P High Chol 261 mg/dL <200 mg/dL Final [facility] Panel W/ [facility] Direct Laboratory LDL, & Serum Pathology: [address] [place] [address] ? ? P Normal Hdl 46 mg/dL 40-60 Final [facility] mg/dL [facility] Laboratory & Pathology: [address] [place] [address] ? ? P High Trig 225 mg/dL 30-150 Final [facility] mg/dL [facility] Laboratory & Pathology: [address] [place] [address] ? ? P High LDL(C) 170 calc <100 calc Final [facility] Laboratory & Pathology: [address] [place] [address] ? ? P ? Risk 5.7 calc ? [facility] Laboratory & Pathology: [address] [place] [address] 11/28/2018 CBC W/ WB Normal Wbc 6.0 10^3/mm^3 4.8-10.8 [facility] Auto Diff 10^3/mm^3 Hosp ital Laboratory & Pathology: [address] [place] [address] ? ? WB Normal Rbc 5.18 4.20-5.90 Final [facility] 10^6/mm^3 10^6/mm^3 Hosp ital Laboratory & Pathology: [address] [place] [address] ? ? WB Normal Hgb 16.4 g/dL 13.5-17.5 Final [facility] g/dL [facility] Laboratory & Pathology: [address] [place] [address] ? ? WB High Hct 52 % 40-50 % Final [facility] Laboratory & Pathology: [address] [place] [address] ? ? WB High Mcv 100.8 fL 80.0-97.0 Final [facility] Laboratory & Pathology: [address] [place] [address] ? ? WB Low Mch 31.7 pg 33.0-36.0 Final [facility] e pg [facility] Laboratory & Pathology: [address] [place] [address] ? ? WB Low Mchc 31 g/dL 33-36 g/dL Final [facility] Laboratory & Pathology: [address] [place] [address] ? ? WB Normal Rdw 13.7 % 11.6-14.8 Final [facility] Laboratory & Pathology: [address] [place] [address] ? ? WB Normal Plt 192 10^3/mm^3 150-400 Final [facility] 10^3/mm^3 Hospita l Laboratory & Pathology: [address] [place] [address] ? ? WB ? [id number] yes ? Final [facility] Laboratory & Pathology: [address] [place] [address] ? ? WB ? Morph? no ? Final [facility] Laboratory & Pathology: [address] [place] [address] 11/28/2018 HbA1C WB Normal A1C 5.7 % 4.5-6.2 % Final [facility] (Hemoglob Hospita l in a1C), Laborato ry Blood & Pathology: [address] [place] [address] ? ? WB ? Eag 117 calc ? Final [facility] Laboratory & Pathology: [address] [place] [address] 11/28/2018 Different WB Normal %Seg 65 % 40-75 % Final [facility] ial, Hospital Manual, Laborator y Blood & Pathology: [address] [place] [address] ? ? WB Normal %Band 0 % 0-5 % Final [facility] Laboratory & Pathology: [address] [place] [address] ? ? WB Normal %Lymph 26 % 20-45 % Final [facility] Laboratory & Pathology: [address] [place] [address] ? ? WB Normal %[place] 5 % 2-10 % Final [facility] Laboratory & Pathology: [address] [place] [address] ? ? WB Normal %Eos 4 % 1-6 % Final [facility] Laboratory & Pathology: [address] [place] [address] ? ? WB Normal %Baso 0 % 0-1 % Final [facility] Laboratory & Pathology: [address] [place] [address] ? ? WB ? %Atyp 0 % ? Final [facility] Laboratory & Pathology: [address] [place] [address] ? ? WB ? %[place] 0 % ? Final [facility] Laboratory & Pathology: [address] [place] [address] ? ? WB ? %Myelo 0 % ? Final [facility] Laboratory & Pathology: [address] [place] [address] ? ? WB ? %Prome 0 % ? Final [facility] Laboratory & Pathology: [address] [place] [address] ? ? WB ? %Blast 0 % ? Final [facility] Laboratory & Pathology: [address] [place] [address] ? ? WB Normal Pltest adequate adequate Final [facility] Laboratory & Pathology: [address] [place] [address] ? ? WB ? Nrbc 0 /100 WBC ? Final [facility] Laboratory & Pathology: [address] [place] [address] ? ? WB ? Macro few ? Final [facility] Laboratory & Pathology: [address] [place] [address] ? ? WB ? Ellip 0.00 ? Final [facility] Laboratory & Pathology: [address] [place] [address] 02/10/2018 CBC W/ High Wbc 15.9 x10^3/uL 4.8-10.8 Kenyetta l [facility] Auto Diff x10^3/uL [facility] Laboratory & Pathology: [address] [place] [address] ? ? ? Rbc 5.49 x10^6/uL 4.20-5.90 [facility] Laboratory & Pathology: [address] [place] [address] ? ? ? Hgb 17.0 g/dL 13.5-17.5 Final [facility] age g/dL [facility] Laboratory & Pathology: [address] [place] [address] ? ? High Hct 52.1 % 40.0-50.0 [facility] Laboratory [facility] Pathology: [address] [place] [address] ? ? ? Mcv 94.9 fL 80.0-97.0 [facility] Laboratory & Pathology: [address] [place] [address] ? ? Low Mch 31.0 pg 33.0-36.0 Final [facility] e pg [facility] Laboratory & Pathology: [address] [place] [address] ? ? Low Mchc 32.6 g/dL 33.0-36.0 Final [facility] age g/dL Hospital Laboratory & Pathology: [address] [place] [address] ? ? High RDW-CV 14.9 % 11.6-14.8 Final [facility] Laboratory & Pathology: [address] [place] [address] ? ? ? Plt 168 x10^3/uL 150-400 Final [facility] x10^3/uL Hospital Laboratory & Pathology: [address] [place] [address] ? ? High Neut % 90.6 % 40.0-74.0 Final [facility] e % [facility] Laboratory & Pathology: [address] [place] [address] ? ? Low Lymph 3.8 % 19.0-48.0 Final [facility] % [facility] Laboratory & Pathology: [address] [place] [address] ? ? ? [place]% 6 % 3-10 % Final [facility] Laboratory & Pathology: [address] [place] [address] ? ? Low Eos% 0 % 1-7 % Final [facility] Laboratory & Pathology: [address] [place] [address] ? ? ? Baso% 0 % 0-2 % Final [facility] Laboratory & Pathology: [address] [place] [address] ? ? High Neut # 14.40 1.00-7.00 Final [facility] x10^3/uL x10^3/uL Hospit nc Laboratory & Pathology: [address] [place] [address] ? ? Low Lymph# 0.61 x10^3/uL 1.20-3.40 Final [facility] x10^3/uL [facility] Laboratory & Pathology: [address] [place] [address] ? ? High [place]# 0.87 x10^3/uL 0.10-0.70 Final [facility] x10^3/uL [facility] Laboratory & Pathology: [address] [place] [address] ? ? ? Eos # 0.00 x10^3/uL 0.00-0.70 Final [facility] x10^3/uL [facility] Laboratory & Pathology: [address] [place] [address] ? ? ? Baso # 0.0 x10^3/uL 0.0-0.2 Final [facility] x10^3/uL [facility] Laboratory & Pathology: [address] [place] [address] 02/10/2018 CMP, ? Sodium 137 mEq/L 136-145 Final [facility] Serum or mEq/L Hospital Plasma Laboratory & Pathology: [address] [place] [address] ? ? ? Potass 4.6 mEq/L 3.5-5.1 Final [facility]Eq/L [facility] Laboratory & Pathology: [address] [place] [address] ? ? ? Chlori 98 mEq/L 98-107 Final [facility] de mEq/L [facility] Laboratory & Pathology: [address] [place] [address] ? ? ? Carbon 32 mEq/L 21-32 Final [facility] Dioxide mEq/L [facility] Laboratory & Pathology: [address] [place] [address] ? ? ? Anion 12 ratio ? Final [facility] Gap [facility] Laboratory & Pathology: [address] [place] [address] ? ? ? Calciu 8.9 mg/dL 8.5-10.1 Final [facility] age m mg/dL Hospital Laboratory & Pathology: [address] [place] [address] ? ? High Glucos 125 mg/dL 74-106 [facility] mg/dL [facility] Laboratory & Pathology: [address] [place] [address] ? ? ? Bun 13 mg/dL 7-18 mg/dL Final [facility] Laboratory & Pathology: [address] [place] [address] ? ? ? Creati 0.87 mg/dL 0.70-1.30 Final [facility] nine mg/dL Hospital Laboratory & Pathology: [address] [place] [address] ? ? ? BUN/cr 14.9 calc 12.0-20.0 Final [facility] eat calc Hospital Ratio Laboratory & Pathology: [address] [place] [address] ? ? ? GFR >60 >=60 Final [facility] mL/min/1.73 mL/min/1.7 Hospital an m2 3 m2 Laboratory & Pathology: [address] [place] [address] ? ? ? GFR >60 >=60 [facility]/1.73 mL/min/1.7 Hospital [facility] m2 3 m2 Laborator y n & Pathology: [address] [place] [address] ? ? ? Total 7.3 g/dL 6.4-8.2 Final [facility] Protein g/dL [facility] Laboratory & Pathology: [address] [place] [address] ? ? ? Albumi 3.5 g/dL 3.4-5.0 Final [facility] g/dL [facility] Laboratory & Pathology: [address] [place] [address] ? ? ? Globul 3.8 g/dL ? Final [facility] Laboratory [facility] Pathology: [address] [place] [address] ? ? Low A/g 0.9 calc 1.1-1.8 Final [facility] Ratio calc Hospital Laboratory & Pathology: [address] [place] [address] ? ? ? ALT(SG 34 U/L 16-63 U/L Final [facility] e PT) [facility] Laboratory & Pathology: [address] [place] [address] ? ? Low Ast 14 U/L 15-37 U/L Final [facility] (Sgot) [facility] Laboratory & Pathology: [address] [place] [address] ? ? ? Alk. 86 U/L 45-115 U/L [facility] Laboratory & Pathology: [address] [place] [address] ? ? ? Total 0.6 mg/dL 0.1-1.2 Final [facility] mg/dL Hospital in Laboratory & Pathology: [address] [place] [address] 02/07/2018 CBC W/ ? Wbc 9.0 x10^3/uL 4.8-10.8 Final [facility] Auto Diff x10^3/uL [facility] Laboratory & Pathology: [address] [place] [address] ? ? High Rbc 6.03 x10^6/uL 4.20-5.90 [facility] x10^6/uL [facility] Laboratory & Pathology: [address] [place] [address] ? ? High Hgb 18.5 g/dL 13.5-17.5 Final [facility] g/dL Hospital Laboratory & Pathology: [address] [place] [address] ? ? High Hct 56.0 % 40.0-50.0 Final [facility] Laboratory & Pathology: [address] [place] [address] ? ? ? Mcv 92.9 fL 80.0-97.0 Final [facility] fL [facility] Laboratory & Pathology: [address] [place] [address] ? ? Low Mch 30.7 pg 33.0-36.0 Final [facility] pg [facility] Laboratory & Pathology: [address] [place] [address] ? ? ? Mchc 33.0 g/dL 33.0-36.0 Final [facility] g/dL Hospital Laboratory & Pathology: [address] [place] [address] ? ? ? RDW-CV 14.6 % 11.6-14.8 Final [facility] Laboratory & Pathology: [address] [place] [address] ? ? ? Plt 179 x10^3/uL 150-400 Final [facility] x10^3/uL [facility] Laboratory & Pathology: [address] [place] [address] ? ? High Neut % 85.2 % 40.0-74.0 Final [facility] Laboratory & Pathology: [address] [place] [address] ? ? Low Lymph 9.4 % 19.0-48.0 Final [facility] % [facility] Laboratory & Pathology: [address] [place] [address] ? ? ? [place]% 5 % 3-10 % Final [facility] Laboratory & Pathology: [address] [place] [address] ? ? Low Eos% 0 % 1-7 % Final [facility] Laboratory & Pathology: [address] [place] [address] ? ? ? Baso% 0 % 0-2 % Final [facility] Laboratory & Pathology: [address] [place] [address] ? ? High Neut # 7.67 x10^3/uL 1.00-7.00 Final [facility] x[facility]3/uL [facility] Laboratory & Pathology: [address] [place] [address] ? ? Low Lymph# 0.85 x10^3/uL 1.20-3.40 Final [facility] x10^3/uL [facility] Laboratory & Pathology: [address] [place] [address] ? ? ? [place]# 0.47 x10^3/uL 0.10-0.70 Final [facility] x10^3/uL [facility] Laboratory & Pathology: [address] [place] [address] ? ? ? Eos # 0.01 x10^3/uL 0.00-0.70 Final [facility] x10^3/uL [facility] Laboratory & Pathology: [address] [place] [address] ? ? ? Baso # 0.0 x10^3/uL 0.0-0.2 Final [facility] x10^3/uL [facility] Laboratory & Pathology: [address] [place] [address] 02/07/2018 CMP, ? Sodium 143 mEq/L 136-145 Final [facility] Serum or mEq/L Hospital Plasma Laboratory & Pathology: [address] [place] [address] ? ? ? Potass 4.4 mEq/L 3.5-5.1 Final [facility] mEq/L [facility] Laboratory & Pathology: [address] [place] [address] ? ? ? Chlori 101 mEq/L 98-107 [facility] mEq/L [facility] Laboratory & Pathology: [address] [place] [address] ? ? High [place] 34 mEq/L 21-32 [facility] Dioxide mEq/L [facility] Laboratory & Pathology: [address] [place] [address] ? ? ? Anion 12 ratio ? Final [facility] Gap [facility] Laboratory & Pathology: [address] [place] [address] ? ? ? Calciu 8.9 mg/dL 8.5-10.1 Final [facility] mg/dL [facility] Laboratory & Pathology: [address] [place] [address] ? ? ? Glucos 102 mg/dL 74-106 Final [facility] mg/dL [facility] Laboratory & Pathology: [address] [place] [address] ? ? ? Bun 13 mg/dL 7-18 mg/dL Final [facility] Laboratory & Pathology: [address] [place] [address] ? ? ? Creati 0.96 mg/dL 0.70-1.30 Final [facility] nine mg/dL Hospital Laboratory & Pathology: [address] [place] [address] ? ? ? BUN/cr 13.5 calc 12.0-20.0 Final [facility] eat calc Hospital Ratio Laboratory & Pathology: [address] [place] [address] ? ? ? GFR >60 >=60 [facility] [place] mL/min/1.73 mL/min/1.7 Hospital an m2 3 m2 Laboratory & Pathology: [address] [place] [address] ? ? ? GFR >60 >=60 Final [facility] mL/min/1.73 mL/min/1.7 Hospital [facility] m2 3 m2 Laborator y n & Pathology: [address] [place] [address] ? ? ? Total 7.7 g/dL 6.4-8.2 Final [facility] Protein g/dL Hospital Laboratory & Pathology: [address] [place] [address] ? ? ? Albumi 4.0 g/dL 3.4-5.0 Final [facility] e n g/dL Hospital Laboratory & Pathology: [address] [place] [address] ? ? ? Globul 3.7 g/dL ? Final [facility] in [facility] Laboratory & Pathology: [address] [place] [address] ? ? ? A/g 1.1 calc 1.1-1.8 Final [facility] Ratio calc [facility] Laboratory & Pathology: [address] [place] [address] ? ? ? ALT(SG 26 U/L 16-63 U/L Final [facility] e PT) [facility] Laboratory & Pathology: [address] [place] [address] ? ? ? Ast 15 U/L 15-37 U/L Final [facility] (Sgot) [facility] Laboratory & Pathology: [address] [place] [address] ? ? ? Alk. 97 U/L 45-115 U/L Final [facility] e Phospha [facility] tas Laboratory & Pathology: [address] [place] [address] ? ? ? Total 0.4 mg/dL 0.1-1.2 Final [facility] Bil[facility]ub [facility]/dL Hospital in Laboratory & Pathology: [address] [place] [address] 12/08/2017 CBC W/ ? Wbc 7.7 x10^3/uL 4.8-10.8 Final [facility] Diff x10^3/uL [facility] Laboratory & Pathology: [address] [place] [address] ? ? ? Rbc 5.64 x10^6/uL 4.20-5.90 [facility] x10^6/uL [facility] Laboratory & Pathology: [address] [place] [address] ? ? High Hgb 17.6 g/dL 13.5-17.5 Final [facility] g/dL Hospital Laboratory & Pathology: [address] [place] [address] ? ? High Hct 53.1 % 40.0-50.0 Final [facility] Laboratory & Pathology: [address] [place] [address] ? ? ? Mcv 94.1 fL 80.0-97.0 Final [facility] fL [facility] Laboratory & Pathology: [address] [place] [address] ? ? Low Mch 31.2 pg 33.0-36.0 Final [facility] pg [facility] Laboratory & Pathology: [address] [place] [address] ? ? ? Mchc 33.1 g/dL 33.0-36.0 Final [facility] g/dL Hospital Laboratory & Pathology: [address] [place] [address] ? ? ? RDW-CV 14.6 % 11.6-14.8 Final [facility] % [facility] Laboratory & Pathology: [address] [place] [address] ? ? ? Plt 191 x10^3/uL 150-400 Final [facility] x10^3/uL Hospital Laboratory & Pathology: [address] [place] [address] ? ? ? Neut % 72.6 % 40.0-74.0 Final [facility] % [facility] Laboratory & Pathology: [address] [place] [address] ? ? Low Lymph 15.2 % 19.0-48.0 Final [facility] % Hospital Laboratory & Pathology: [address] [place] [address] ? ? ? [place]% 8 % 3-10 % Final [facility] Laboratory & Pathology: [address] [place] [address] ? ? ? Eos% 4 % 1-7 % Final [facility] Laboratory & Pathology: [address] [place] [address] ? ? ? Baso% 0 % 0-2 % Final [facility] Laboratory & Pathology: [address] [place] [address] ? ? ? Neut # 5.61 x10^3/uL 1.00-7.00 [facility] x10^3/uL [facility] Laboratory & Pathology: [address] [place] [address] ? ? Low Lymph# 1.17 x10^3/uL 1.20-3.40 Final [facility] Laboratory & Pathology: [address] [place] [address] ? ? ? [place]# 0.62 x10^3/uL 0.10-0.70 Final [facility] x[facility]uL [facility] Laboratory & Pathology: [address] [place] [address] ? ? ? Eos # 0.30 x10^3/uL 0.00-0.70 Final [facility] x[facility]^3/uL [facility] Laboratory & Pathology: [address] [place] [address] ? ? ? Baso # 0.0 x10^3/uL 0.0-0.2 Final [facility] x10^3/uL Hospital Laboratory & Pathology: [address] [place] [address] 12/08/2017 Influenza ? Influe negative ? Final [facility]rinath Virus a a [facility] (A+B) Ag, Laborat ory Rapid, & Nose Pathology: [address] [place] [address] ? ? ? Influe negative ? Final Srinath nza B [facility] Laboratory & Pathology: [address] [place] [address] 12/08/2017 CK/CKMB ? Creati 139 U/L 39-308 U/L Final [facility]ath Panel ne [facility] Kinase Laboratory & Pathology: [address] [place] [address] ? ? ? Ckmb 3.5 NG/mL 0.0-3.6 Final [facility] NG/mL [facility] Laboratory & Pathology: [address] [place] [address] 12/08/2017 CMP, ? Sodium 142 mEq/L 136-145 Final [facility] Serum or mEq/L [facility] Plasma Laboratory & Pathology: [address] [place] [address] ? ? ? Potass 4.3 mEq/L 3.5-5.1 Final [facility] ium mEq/L [facility] Laboratory & Pathology: [address] [place] [address] ? ? ? Chlori 102 mEq/L 98-107 Final [facility] e de mEq/L [facility] Laboratory & Pathology: [address] [place] [address] ? ? High [place] 34 mEq/L 21-32 [facility] Dioxide mEq/L Hospital Laboratory & Pathology: [address] [place] [address] ? ? ? Anion 10 ratio ? [facility] Laboratory [facility] Pathology: [address] [place] [address] ? ? ? Calciu 9.0 mg/dL 8.5-10.1 Final [facility] m mg/dL Hospital Laboratory & Pathology: [address] [place] [address] ? ? High Glucos 139 mg/dL 74-106 Final [facility] e mg/dL Hospital Laboratory & Pathology: [address] [place] [address] ? ? ? Bun 9 mg/dL 7-18 mg/dL Final [facility] Laboratory & Pathology: [address] [place] [address] ? ? ? Creati 0.96 mg/dL 0.70-1.30 Final [facility] nine mg/dL Hospital Laboratory & Pathology: [address] [place] [address] ? ? Low BUN/cr 9.4 calc 12.0-20.0 Final [facility] eat calc Hospital Ratio Laboratory & Pathology: [address] [place] [address] ? ? ? GFR >60 >=60 Final [facility] [place] mL/min/1.73 mL/min/1.7 Hospital an m2 3 m2 Laboratory & Pathology: [address] [place] [address] ? ? ? GFR >60 >=60 [facility] mL/min/1.73 mL/min/1.7 [facility] m2 3 m2 Laborator y n & Pathology: [address] [place] [address] ? ? ? Total 7.8 g/dL 6.4-8.2 Final [facility] Protein g/dL Hospital Laboratory & Pathology: [address] [place] [address] ? ? ? Albumi 4.1 g/dL 3.4-5.0 Final [facility] n g/dL Hospital Laboratory & Pathology: [address] [place] [address] ? ? ? Globul 3.7 g/dL ? Final [facility] Laboratory & Pathology: [address] [place] [address] ? ? ? A/g 1.1 calc 1.1-1.8 Final [facility] Ratio calc Hospital Laboratory & Pathology: [address] [place] [address] ? ? ? ALT(SG 24 U/L 16-63 U/L [facility] PT) Hospital Laboratory & Pathology: [address] [place] [address] ? ? ? Ast 16 U/L 15-37 U/L Final [facility] (Sgot) [facility] Laboratory & Pathology: [address] [place] [address] ? ? ? Alk. 115 U/L 45-115 U/L Final [facility] tase Laboratory & Pathology: [address] [place] [address] ? ? ? Total 0.5 mg/dL 0.1-1.2 Final [facility] Bil[facility]ub mg/dL Hospital in Laboratory & Pathology: [address] [place] [address] 12/08/2017 Magnesium ? Magnes 2.1 mg/dL 1.8-2.4 Final [facility] , Serum ium mg/dL Hospital [facility] [address] [place] [address] 12/08/2017 Troponin ? Tropon <0.017 NG/mL <=0.059 Fin al [facility] I, Serum in I NG/mL Hospital [facility] [address] [place] [address] 12/08/2017 D-dimer ? D-dime 121 NG/mL 0-400 Final [facility] FEU, QN, r NG/mL Hospital IA, Blood Laborat ory & Pathology: [address] [place] [address] 12/08/2017 Influenza ? Influe negative ? Final [facility] Virus [facility] a [facility] (A+B) Ag, Laborat ory Rapid, & Nose Pathology: [address] [place] [address] ? ? ? Influe negative ? [facility] Laboratory & Pathology: [address] [place] [address] 11/21/2017 CBC W/ Normal Wbc 6.3 x10^3/uL 4.8-10.8 Final [facility] Auto Diff x10^3/uL [facility] Laboratory & Pathology: [address] [place] [address] ? ? Normal Rbc 5.22 x10^6/uL 4.20-5.90 Final [facility] x10^6/uL Hospital Laboratory & Pathology: [address] [place] [address] ? ? Normal Hgb 16.0 g/dL 13.5-17.5 Final [facility] age g/dL Hospital Laboratory & Pathology: [address] [place] [address] ? ? Normal Hct 49.3 % 40.0-50.0 Final [facility] Laboratory & Pathology: [address] [place] [address] ? ? Normal Mcv 94.4 fL 80.0-97.0 Final [facility] e fL Hospital Laboratory & Pathology: [address] [place] [address] ? ? Low Mch 30.7 pg 33.0-36.0 Final [facility] Laboratory & Pathology: [address] [place] [address] ? ? Low Mchc 32.5 g/dL 33.0-36.0 Final [facility] age g/dL Hospital Laboratory & Pathology: [address] [place] [address] ? ? Normal RDW-CV 14.6 % 11.6-14.8 Final [facility] e % Hospital Laboratory & Pathology: [address] [place] [address] ? ? Normal Plt 180 x10^3/uL 150-400 Final [facility] x10^3/uL [facility] Laboratory & Pathology: [address] [place] [address] ? ? Normal Neut % 65.2 % 40.0-74.[address] [facility] Laboratory & Pathology: [address] [place] [address] ? ? Normal Lymph 22.8 % 19.0-48.0 [facility] Laboratory & Pathology: [address] [place] [address] ? ? Normal [place]% 10 % 3-10 % Final [facility] Laboratory & Pathology: [address] [place] [address] ? ? Normal Eos% 2 % 1-7 % Final [facility] Laboratory & Pathology: [address] [place] [address] ? ? Normal Baso% 0 % 0-2 % Final [facility] Laboratory & Pathology: [address] [place] [address] ? ? Normal Neut # 4.09 x10^3/uL 1.00-7.00 [facility] Laboratory & Pathology: [address] [place] [address] ? ? Normal Lymph# 1.43 x10^3/uL 1.20-3.40 Final [facility] Laboratory & Pathology: [address] [place] [address] ? ? Normal [place]# 0.62 x10^3/uL 0.10-0.70 Final [facility] Laboratory & Pathology: [address] [place] [address] ? ? Normal Eos # 0.12 x10^3/uL 0.00-0.70 Final [facility] x10^3/uL [facility] Laboratory & Pathology: [address] [place] [address] ? ? Normal Baso # 0.0 x10^3/uL 0.0-0.2 Final Co ttage x10^3/uL [facility] Laboratory & Pathology: [address] [place] [address] 11/21/2017 CMP, Normal Sodium 143 mEq/L 136-145 Final [place] [facility] Serum or mEq/L [facility] Plasma Laboratory & Pathology: [address] [place] [address] ? ? Normal Potass 4.6 mEq/L 3.5-5.1 Final [facility] ge ium mEq/L [facility] Laboratory & Pathology: [address] [place] [address] ? ? Normal Chlori 103 mEq/L 98-107 Final [facility] e de mEq/L [facility] Laboratory & Pathology: [address] [place] [address] ? ? High [place] 34 mEq/L 21-32 Final [facility] Dioxide mEq/L [facility] Laboratory & Pathology: [address] [place] [address] ? ? Normal Anion 11 ratio ? Final [facility] Gap [facility] Laboratory & Pathology: [address] [place] [address] ? ? Normal Calciu 8.9 mg/dL 8.5-10.1 Final [facility] m mg/dL [facility] Laboratory & Pathology: [address] [place] [address] ? ? Normal Glucos 106 mg/dL 74-106 Final [facility] e e mg/dL [facility] Laboratory & Pathology: [address] [place] [address] ? ? Normal Bun 13 mg/dL 7-18 mg/dL Final [facility] Laboratory & Pathology: [address] [place] [address] ? ? Normal Creati 0.87 mg/dL 0.70-1.30 Final Co ttage nine mg/dL [facility] Laboratory & Pathology: [address] [place] [address] ? ? Normal BUN/cr 14.9 calc 12.0-20.0 Final [facility] eat calc [facility] Ratio Laboratory & Pathology: [address] [place] [address] ? ? Normal GFR >60 >=60 Final [facility] [place] mL/min/1.73 mL/min/1.7 [facility] an m2 3 m2 Laboratory & Pathology: [address] [place] [address] ? ? Normal GFR >60 >=60 Final [facility] mL/min/1.73 mL/min/1.7 Hospital [facility] m2 3 m2 Laborator y n & Pathology: [address] [place] [address] ? ? Normal Total 6.9 g/dL 6.4-8.2 Final [facility] Protein g/dL [facility] Laboratory & Pathology: [address] [place] [address] ? ? Normal Albumi 4.0 g/dL 3.4-5.0 [facility] Laboratory & Pathology: [address] [place] [address] ? ? Normal Globul 2.9 g/dL ? Final [facility] in Hospital Laboratory & Pathology: [address] [place] [address] ? ? Normal A/g 1.4 calc 1.1-1.8 Final [facility] Ratio calc Hospital Laboratory & Pathology: [address] [place] [address] ? ? Normal ALT(SG 27 U/L 16-63 U/L Final [facility] e PT) [facility] Laboratory & Pathology: [address] [place] [address] ? ? Normal Ast 15 U/L 15-37 U/L [facility] (Sgot) [facility] Laboratory & Pathology: [address] [place] [address] ? ? Normal Alk. 96 U/L 45-115 U/L Final [facility] e Phospha [facility] tas Laboratory & Pathology: [address] [place] [address] ? ? Normal Total 0.4 mg/dL 0.1-1.2 Final [facility] e Bilirub mg/dL [facility] in Laboratory & Pathology: [address] [place] [address] 11/21/2017 Lipid High Choles 210 mg/dL <=200 Final Co ttage Panel W/ terol mg/dL [facility] LDL, & Serum Pathology: [address] [place] [address] ? ? Normal HDL 51 mg/dL 40-60 Final [facility] Cholest mg/dL [facility] li Laboratory & Pathology: [address] [place] [address] ? ? Normal Trigly 128 mg/dL 30-150 Final [facility] e cerides mg/dL [facility] Laboratory & Pathology: [address] [place] [address] ? ? Normal HDL 4.1 calc ? Final [facility] Factor Laboratory & Pathology: [address] [place] [address] ? ? High LDL 133 calc <=100 calc Final [facility] Laboratory & Pathology: [address] [place] [address] 11/21/2017 Hepatitis ? No ? ? ? C Ab, observa Serum tion recorde d. 05/25/2017 Unlisted ? B-type 20.7 pg/mL 0-100 Final *DO Not Lab Natriur pg/mL Use* Ch etic Lab: 90 Peptide Konstantinwate r [facility] 05/25/2017 D-dimer, High D-dime 673 NG/mL 0-400 Final *DO Not Quant, r NG/mL Use* Plasma Lab: [address] [facility] 05/25/2017 Cbc ? White 5.4 10 4.8-10.8 Final *DO Not Blood 10 Use* Ch Count Lab: [address] [facility] ? ? ? Rbc 4.45 10 4.20-5.90 Final *DO No t 10 Use* Ch Lab: [address] [place] [address] ? ? ? Hgb 13.6 g/dL 13.5-17.5 Final *DO Not g/dL Use* Ch Lab: [address] [place] [address] ? ? ? Hct 42.3 % 40-50 % Final *DO Not Use* Ch Lab: [address] [place] [address] ? ? ? Mcv 95.1 fL 80-97 fL Final *DO Not Use* Ch Lab: [address] [place] [address] ? ? ? Mch 30.6 pg 27-32 pg Final *DO Not Use* Ch Lab: [address] [place] [address] ? ? Low Mchc 32.2 g/dL 33-36 g/dL Final *DO Not Use* Ch Lab: [address] [place] [address] ? ? ? Rdw 13.7 % 11.6-14.8 Final *DO Not % Use* Ch Lab: [address] [place] [address] ? ? ? Plt 170 10 150-400 10 Final *DO No t Use* Ch Lab: [address] [facility] ? ? ? Neut % 50.8 % 40-74 % Final *DO Not Use* Ch Lab: [address] [place] [address] ? ? ? Lymph 33.1 % 19-48 % Final *DO Not % Use* Ch Lab: [address] [place] [address] ? ? ? [place] % 9.2 % 3.0-10.0 % Final *DO N ot Use* Ch Lab: [address] [facility] ? ? ? Eosin 6.7 % 1.0-7.0 % Final *DO Not % Use* Ch Lab: [facility] ? ? ? Baso % 0.2 % 0-2.0 % Final *DO Not Use* Ch Lab: [facility] ? ? ? Neut 2.7 1.2-6.7 Final *DO Not Abs Use* Ch Lab: [facility] ? ? ? Lymph 1.77 1.2-3.4 Final *DO Not Ab Use* Ch Lab: [facility] ? ? ? [place] 0.49 0.11-0.7 Final *DO Not Abs Use* Ch Lab: [facility] ? ? ? Eos 0.36 0-0.7 Final *DO Not Abs Use* Ch Lab: [facility] ? ? ? Baso 0.01 0-0.2 Final *DO Not Abs Use* Ch Lab: [facility] 05/25/2017 BMP, High Glucos 111 mg/dL 74-106 Final *D O Not Serum or e mg/dL Use* Plasma Lab: [facility] ? ? ? Urea 7 mg/dL 7-18 mg/dL Final *DO N ot Nitroge Use* Ch n Lab: [facility] ? ? ? Creati 1.1 mg/dL 0.70-1.3 Final *DO Not nine mg/dL Use* Ch Lab: [facility] ? ? ? Sodium 143.9 mmol/L 136-145 Final *D O Not mmol/L Use* Ch Lab: [facility] ? ? ? Potass 4.0 mmol/L 3.5-5.1 Final *DO Not ium mmol/L Use* Ch Lab: [facility] ? ? ? Chlori 105 mmol/l 98-107 Final *DO N ot de mmol/l Use* Ch Lab: [facility] ? ? [place] 35 mmol/l 21-32 Final *DO No t Dioxide mmol/l Use* Ch Lab: [facility] ? ? ? Calciu 8.8 mg/dL 8.5-10.1 Final *DO Not m mg/dL Use* Ch Lab: [address] [facility] ? ? ? Anion 8 ? Final *DO Not Gap Use* Ch Lab: [address] [facility] ? ? Low BUN/cr 6.3 12-20 Final *DO Not ea Use* Ch Lab: [address] [facility] ? ? ? [place] >60 ? Final *DO Not ular mL/min/1.73M2 Use * Filtrat Lab: 90 [facility] 05/25/2017 TSH, ? TSH 1.23 mciu/mL 0.36-3.74 Kenyetta l *DO Not Serum or W/refle mciu/mL Use* C h Plasma x Lab: [address] [facility] 03/30/2017 PT/INR ? Protim 10.2 sec. 9.0-10.9 Final *DO Not e sec. Use* Lab: [address] [facility] ? ? ? Inr 1.02 ? Final *DO Not Use* Lab: [address] [facility] Past Encounters 10/01/2021 Chronic Obstructive Lung Disease; Tobacc o User; Anxiety; Squamous Cell Carcinoma of Lung Rae Klein, WORKING SECOND HAND: [address] [place] [address], Ph. [phone] 08/31/2021 Chronic Obstructive Lung Disease; Hypert ensive Disorder; Tobacco User; Cyst of Skin; Anxiety; Nodule of Lung Rae Klein, WORKING SECOND HAND: [address] [place] [address], Ph. [phone] 04/29/2021 Adult Health Examination; Chronic Obstru ctive Lung Disease; Chronic Back Pain; Hypertensive Disorder; Tobacco User; Hyperlipidemia; Abdominal Aortic Aneurysm Screening Offered; Screening for Malignant Neoplasm of Respiratory Tract; Cyst of Skin Rae Klein, WORKING SECOND HAND: [address] [place] [address], Ph. [phone] 03/18/2021 Chronic Back Pain; Chronic Obstructive L santos Disease; Tobacco User; Hypertensive Disorder; Pain in Right Hand; Obesity; Hyperlipidemia Rae Klein, WORKING SECOND HAND: [address] [place] [address], Ph. 02/11/2021 Chronic Back Pain; Chronic Obstructive L santos Disease; Tobacco User; Hypertensive Disorder; Pain in Right Hand Rae Klein, WORKING [employer]OND HAND: [address] [place] [address], Ph. [phone] 11/24/2020 Chronic Back Pain; Chronic Obstructive L santos Disease Rae Klein, WORKING SECOND HAND: [address] [place] [address], Ph. [phone] 10/30/2020 Chronic Back Pain; Chronic Obstructive L santos Disease Rae Klein, WORKING SECOND HAND: [address] [place] [address], Ph. 10/02/2020 Chronic Back Pain; Chronic Obstructive L santos Disease; Chronic Pain Rae Klein, WORKING [employer] HAND: [address] [place] [address], Ph. [phone] 08/07/2020 Pre-surgery Testing; Tobacco User; Chron ic Obstructive Lung Disease; Pulmonary Embolism; Pain in Right Hand Rae Klein, WORKING SECOND HAND: [address] [place] [address], Ph. [phone] 07/15/2020 Viral Screening Rae Klein, WORKING [employer] HAND: [address] [place] [address], Ph. 07/01/2020 Pre-surgery Testing; Chronic Back Pain; Tobacco User; Chronic Obstructive Lung Disease; Pulmonary Embolism Rae Klein, WORKING SECOND HAND: [address] [place] [address], Ph. 06/11/2020 Chronic Obstructive Lung Disease; Chroni c Back Pain; Pain in Right Lower Limb; Depressive Disorder; Gastroesophageal Reflux Disease; Administration of Influenza Vaccine Rae Klein, WORKING [employer]OND HAND: [address] [place] [address], Ph. [phone] 04/30/2020 Hypertensive Disorder; Chronic Obstructi ve Lung Disease; Chronic Back Pain; Pain in Right Lower Limb; Depressive Disorder; Pressure Ulcer of Buttock Rae Klein, WORKING SECOND HAND: [address] [place] [address], Ph. [phone] Social History Tobacco Smoking Status Heavy Tobacco Smoker (1/2 pack Note s: 2 cogs today per day) 10/01/21 03/18/21 Vaccine List Vaccine Type COVID-19 (SARS-COV-2) vaccine, unspecifi ed 10/12/2020 11/08/2020 COVID-19, mRNA, LNP-S, PF, 30 mcg/0.3 mL dose ([place]) 06/12/2021 Hep B, adult 11/07/2008 12/24/2010 Hep B, unspecified formulation 12/17/2008 influenza, high-dose, quadrivalent 06/11/2020?0.7 mL 06/12/2021 influenza, injectable, quadrivalent 06/14/2014 influenza, injectable, quadrivalent, pre servative free 05/11/2017?0.5 mL 08/16/2018?0.5 mL 05/24/2019 pneumococcal polysaccharide PPV23 05/24/2019?0.5 mL pneumococcal, unspecified formulation 11/01/2011 Td (adult) 11/01/2011 zoster recombinant 0.5 mL Plan of Care Patient Instructions --You can look into the book the An ticancer Way of Life by Chilo Sams --Use the Spiriva and Serevent daily. --I would use vasoline or saline rinses in the right nose. --Ideally you blood pressure should be 1 20/80. --You can consider chamomile tea or kava kava tea for anxiety --Consider unsweetened tea instead of Brisk as that can contribute to weight gain --Your ideal BP is 120/80. If it ge ts below 100/60 please call me --Go down to 5mg on the lisinopril and t erinn at night. --I would not proceed with the surgeries for the time being. --Try to limit cigarettes to about 5 per day, and ideally try to quit. --If the pain worsens in the hand please call me and I can prescribe a compounded cream which may be $50. It would contain ketamine/gabapentin and a higher prescription of diclofenac in it. --Stop the lisinopril for the time being--continue to monitor your BP and call me if your blood pressure is consistently above 140/90. --I would not proceed with the surgeries for the time being. --Try to limit cigarettes to about 5 per day, and ideally try to quit. --Please call neurosurgery at if you do not hear back from them in a week --Please call me if the diclofenac does not work after 5 days. We could consider a medrol dose [place] at that point. --Excellent job on losing weight! Gabe: --You can stay on Spiriva and Advair --You need to call the printing table worker and tell them we cannot do low dose CT scans here. --I did prescribe home oxygen for you. --Stop aspirin 10 days prior to the surgery --Stop aspirin 10 days prior to the surgery --Please let me know by about t he oxygen --Get your labs done before the surgery --Please followup with Dr. Gail ferguson at [facility]. --Please start the antidepressant in the morning, switch your blood pressure pill to night. --You can go up to 150mg after a week if you don't experience any side effects. --Monitor your blood pressure --Stop lisinopril, monitor your BP daily, call me if persistently elevated over 140/90. --I referred you to neurosurgery, Dr. Apollo carrera at [facility]. Reminders Provider Appointments None recorded. ? ? Lab None recorded. ? ? Referral None recorded. ? ? Procedures None recorded. ? ? Surgeries None recorded. ? ? Imaging None recorded. ? ? Vitals 10/01/2021 10:00AM FOLLOW UP Height Weight BMI Blood Pressure 172.72 cm 97.98 kg 32.8 kg/m2 124/84 mm[Hg] 08/31/2021 08:30AM FOLLOW UP Height Weight BMI Blood Pressure 172.72 cm 96.62 kg 32.4 kg/m2 124/86 mm[Hg] 04/29/2021 09:50AM Annual Comprehensive Visit Height Weight BMI Blood Pressure 172.72 cm 100.7 kg 33.8 kg/m2 116/82 mm[Hg] 03/18/2021 09:50AM COMPLEX FOLLOW UP Height Weight BMI Blood Pressure 174.63 cm 102.97 kg 33.8 kg/m2 116/72 mm[Hg] 02/11/2021 08:30AM COMPLEX FOLLOW UP Height Weight BMI Blood Pressure 174.63 cm 104.78 kg 34.4 kg/m2 96/68 mm[Hg] 11/24/2020 03:10PM ACUTE - ESTABLISHED Height Weight BMI Blood Pressure 174.63 cm 107.5 kg 35.3 kg/m2 104/68 mm[Hg] 10/30/2020 09:50AM COMPLEX FOLLOW UP Height Weight BMI Blood Pressure 174.63 cm 110.22 kg 36.1 kg/m2 120/80 mm[Hg] 10/02/2020 09:50AM COMPLEX FOLLOW UP Height Weight BMI Blood Pressure 174.63 cm 111.58 kg 36.6 kg/m2 110/78 mm[Hg] 08/07/2020 09:10AM PRE-OP 40 Height Weight BMI Blood Pressure 174.63 cm 110.68 kg 36.3 kg/m2 110/74 mm[Hg] 07/01/2020 01:30PM COMPLEX FOLLOW UP Height Weight BMI Blood Pressure 174.63 cm 107.95 kg 35.4 kg/m2 110/74 mm[Hg] 06/11/2020 08:30AM COMPLEX FOLLOW UP Height Weight BMI Blood Pressure 174.63 cm 110.68 kg 36.3 kg/m2 110/70 mm[Hg] 04/30/2020 09:10AM FOLLOW UP Height Weight BMI Blood Pressure 174.63 cm 110.68 kg 36.3 kg/m2 104/74 mm[Hg] 03/24/2020 09:30AM Annual Comprehensive Visit Height Weight BMI Blood Pressure 174.63 cm 111.31 kg 36.5 kg/m2 108/88 mm[Hg] 02/04/2020 09:30AM COMPLEX FOLLOW UP Height Weight BMI Blood Pressure 177.8 cm 110.95 kg 35.1 kg/m2 110/88 mm[Hg] 01/29/2020 09:10AM ORTHO 20 NEW PATIENT Height 177.8 cm 01/17/2020 11:50AM FOLLOW UP Height Weight BMI Blood Pressure 177.8 cm 111.58 kg 35.3 kg/m2 110/70 mm[Hg] 12/03/2019 09:50AM Virtual Check-in Phone Height Weight BMI Blood Pressure 177.8 cm 109.77 kg 34.7 kg/m2 132/89 mm[Hg] 10/10/2019 08:50AM COMPLEX FOLLOW UP Height Weight BMI Blood Pressure 177.8 cm 115.67 kg 36.6 kg/m2 114/74 mm[Hg] 09/26/2019 11:50AM ACUTE - ESTABLISHED Height Weight BMI Blood Pressure 177.8 cm 117.93 kg 37.3 kg/m2 140/76 mm[Hg] 08/06/2019 03:10PM PRE-OP 40 Height Weight BMI Blood Pressure 177.8 cm 112.04 kg 35.4 kg/m2 142/80 mm[Hg] 05/24/2019 10:50AM FOLLOW UP Height Weight BMI Blood Pressure 177.8 cm 111.58 kg 35.3 kg/m2 126/84 mm[Hg] 04/19/2019 08:30AM FOLLOW UP Height Weight BMI Blood Pressure 177.8 cm 113.85 kg 36 kg/m2 116/78 mm[Hg] 04/09/2019 08:50AM ACUTE - ESTABLISHED Height Weight BMI Blood Pressure 177.8 cm 112.13 kg 35.5 kg/m2 128/66 mm[Hg] 04/05/2019 11:30AM COMPLEX FOLLOW UP Height Weight BMI Blood Pressure 177.8 cm 113.85 kg 36 kg/m2 120/68 mm[Hg] 03/29/2019 10:50AM FOLLOW UP Height Weight BMI Blood Pressure 177.8 cm 114.4 kg 36.2 kg/m2 118/70 mm[Hg] 01/22/2019 02:10PM ACUTE - ESTABLISHED Height Weight BMI Blood Pressure 177.8 cm 112.04 kg 35.4 kg/m2 120/80 mm[Hg] 01/12/2019 08:30AM ACUTE - ESTABLISHED Height Weight BMI Blood Pressure 177.8 cm 115.21 kg 36.4 kg/m2 110/76 mm[Hg] 12/22/2018 09:10AM FOLLOW UP Height Weight BMI Blood Pressure 177.8 cm 115.21 kg 36.4 kg/m2 118/80 mm[Hg] 12/15/2018 08:50AM ACUTE - ESTABLISHED Height Weight BMI Blood Pressure 177.8 cm 115.21 kg 36.4 kg/m2 120/80 mm[Hg] 12/11/2018 03:20PM FOLLOW UP Height Weight BMI Blood Pressure 177.8 cm 115.67 kg 36.6 kg/m2 110/76 mm[Hg] 12/01/2018 11:10AM ANNUAL EXAM Height Weight BMI Blood Pressure 177.8 cm 112.04 kg 35.4 kg/m2 102/80 mm[Hg] 11/17/2018 11:50AM ACUTE - ESTABLISHED Height Weight BMI Blood Pressure 177.8 cm 110.68 kg 35 kg/m2 120/80 mm[Hg] 11/08/2018 08:10AM ORTHO 20 FOLLOW UP Height 177.8 cm 10/25/2018 09:50AM ORTHO 20 NEW PATIENT Height 177.8 cm 10/20/2018 11:10AM ACUTE - ESTABLISHED Height Weight BMI Blood Pressure 177.8 cm 112.94 kg 35.7 kg/m2 140/100 mm[Hg] 10/05/2018 11:50AM FOLLOW UP Height Weight BMI Blood Pressure 177.8 cm 110.68 kg 35 kg/m2 120/90 mm[Hg] 10/02/2018 07:50AM ORTHO 20 FOLLOW UP Height 177.8 cm 08/21/2018 07:30AM ORTHO 20 FOLLOW UP Height 177.8 cm 08/16/2018 08:30AM FOLLOW UP Height Weight BMI Blood Pressure 177.8 cm 110.22 kg 34.9 kg/m2 136/100 mm[Hg] 08/01/2018 11:20AM FOLLOW UP Height Weight BMI Blood Pressure 177.8 cm 108.64 kg 34.4 kg/m2 124/86 mm[Hg] 07/10/2018 12:00PM ACUTE - ESTABLISHED Height Weight BMI Blood Pressure 177.8 cm 110.22 kg 34.9 kg/m2 136/94 mm[Hg] 07/03/2018 07:30AM ORTHO 20 FOLLOW UP Height 177.8 cm 06/09/2018 02:10PM FOLLOW UP Height Weight BMI Blood Pressure 177.8 cm 108.07 kg 34.2 kg/m2 114/86 mm[Hg] 06/05/2018 02:00PM ORTHO 20 FOLLOW UP Height 177.8 cm 05/10/2018 10:40AM FOLLOW UP Height Weight BMI Blood Pressure 177.8 cm 107.05 kg 33.9 kg/m2 118/76 mm[Hg] 05/09/2018 02:50PM ORTHO 20 FOLLOW UP Height 177.8 cm 04/18/2018 11:10AM ORTHO 20 FOLLOW UP Height 177.8 cm 04/10/2018 02:40PM ORTHO 20 FOLLOW UP Height 177.8 cm 04/10/2018 11:10AM FOLLOW UP Height Weight BMI Blood Pressure 177.8 cm 108.41 kg 34.3 kg/m2 126/82 mm[Hg] 04/03/2018 07:30AM ORTHO 40 NEW PATIENT Height 177.8 cm 03/10/2018 07:50AM FOLLOW UP Height Weight BMI Blood Pressure 177.8 cm 103.87 kg 32.9 kg/m2 124/86 mm[Hg] 02/28/2018 10:30AM ORTHO 20 FOLLOW UP Height 177.8 cm 02/16/2018 09:50AM ER F/U - ESTABLISHED Height Weight BMI Blood Pressure 177.8 cm 104.21 kg 33 kg/m2 104/68 mm[Hg] 02/09/2018 08:50AM ER F/U - ESTABLISHED Height Weight BMI Blood Pressure 177.8 cm 103.87 kg 32.9 kg/m2 (1) 126/80 mm[H g] (2) 124/80 mm[Hg ] 01/30/2018 07:10AM ORTHO 20 FOLLOW UP Height 177.8 cm 01/19/2018 07:30AM FOLLOW UP Height Weight BMI Blood Pressure 177.8 cm 102.97 kg 32.6 kg/m2 130/90 mm[Hg] 01/02/2018 07:10AM ORTHO 40 NEW PATIENT Height Weight BMI Blood Pressure 177.8 cm 102.97 kg 32.6 kg/m2 135/101 mm[Hg] 12/29/2017 07:50AM FOLLOW UP Height Weight BMI Blood Pressure 177.8 cm 102.97 kg 32.6 kg/m2 128/82 mm[Hg] 12/13/2017 12:40PM ER F/U - ESTABLISHED Height Weight BMI Blood Pressure 177.8 cm 103.19 kg 32.6 kg/m2 128/64 mm[Hg] 11/24/2017 08:10AM ANNUAL EXAM Height Weight BMI Blood Pressure 177.8 cm 103.87 kg 32.9 kg/m2 106/80 mm[Hg] 09/22/2017 07:50AM FOLLOW UP Height Weight BMI Blood Pressure 177.8 cm 106.14 kg 33.6 kg/m2 116/78 mm[Hg] 09/08/2017 09:10AM FOLLOW UP Height Weight BMI Blood Pressure 177.8 cm 105.69 kg 33.4 kg/m2 122/62 mm[Hg] 09/08/2017 11:45AM FOLLOW UP Height Weight BMI Blood Pressure 177.8 cm 105.69 kg 33.4 kg/m2 122/62 mm[Hg] 08/25/2017 11:10AM FOLLOW UP Height Weight BMI Blood Pressure 177.8 cm 105.23 kg 33.3 kg/m2 114/78 mm[Hg] 08/11/2017 11:10AM FOLLOW UP Height Weight BMI Blood Pressure 177.8 cm 109.09 kg 34.5 kg/m2 126/74 mm[Hg] 08/01/2017 09:30AM FOLLOW UP Height Weight BMI Blood Pressure 177.8 cm 109.32 kg 34.6 kg/m2 124/60 mm[Hg] 07/26/2017 01:40PM FOLLOW UP Height Weight BMI Blood Pressure 177.8 cm 109.32 kg 34.6 kg/m2 112/78 mm[Hg] 07/14/2017 03:15PM PODIATRY CASTING Height Weight BMI Blood Pressure 177.8 cm 109.32 kg 34.6 kg/m2 110/72 mm[Hg] 07/14/2017 08:50AM FOLLOW UP Height Weight BMI Blood Pressure 177.8 cm 109.32 kg 34.6 kg/m2 110/72 mm[Hg] 06/24/2017 08:10AM COMPLEX FOLLOW UP Height Weight BMI Blood Pressure 177.8 cm 110.45 kg 34.9 kg/m2 112/66 mm[Hg] 06/14/2017 03:30PM NEW PATIENT Height Weight BMI Blood Pressure 177.8 cm 107.5 kg 34 kg/m2 126/70 mm[Hg] 06/03/2017 11:30AM FOLLOW UP Height Weight BMI Blood Pressure 177.8 cm 107.5 kg 34 kg/m2 118/78 mm[Hg] 05/24/2017 01:00PM ACUTE - ESTABLISHED Height Weight BMI Blood Pressure 177.8 cm 109.54 kg 34.7 kg/m2 112/64 mm[Hg] 05/18/2017 01:20PM FOLLOW UP Height Weight BMI Blood Pressure 177.8 cm 11.23 kg 3.6 kg/m2 106/68 mm[Hg] 05/11/2017 10:50AM HOSPITAL F/U - NEW PT. Height Weight BMI Blood Pressure 177.8 cm 107.05 kg 33.9 kg/m2 106/64 mm[Hg] 05/06/2017 02:00PM ACUTE - ESTABLISHED Height Blood Pressure 177.8 cm 104/68 mm[Hg] 02/07/2017 12:30PM ACUTE - ESTABLISHED Height Weight BMI Blood Pressure 177.8 cm 107.05 kg 33.9 kg/m2 142/84 mm[Hg] 12/30/2016 10:00AM ACUTE - ESTABLISHED Height Weight BMI Blood Pressure 177.8 cm 107.73 kg 34.1 kg/m2 120/76 mm[Hg] 06/21/2016 08:30AM PRE-OP 40 Height Weight BMI Blood Pressure 177.8 cm 103.87 kg 32.9 kg/m2 118/64 mm[Hg] 04/14/2016 07:40AM FOLLOW UP Weight Blood Pressure 108.86 kg 112/62 mm[Hg]
--- OUTSIDE RECORDS SUMMARY | 2021-10-23 11:20 | XMS_ITS | Encounter Summary ---
:1955 Author Care Team Providers Name Role Phone Ty Jenkins Primary Care Provider [phone] Ty Jenkins (Direct) Primary Care Provider [phone] Dr. Karishma Mchugh Referring Provider [phone] Ty Jenkins Referring Provider [phone] Loren Yung MD Surgical Oncologist [phone] Reason for Visit f/u anxiety/COPD/lung cancer Assessment and Plan Assessment Note RTC in 1 months 1. Chronic obstructive lung dise ase Using Spiriva and Serevent now on schedule with improvement in breathing. Lung sounds today at baseline, possibly improved as there is no wheezing. 2. Tobacco user Has cut back on smoking with a ims to quit. Denies deriving any benefit from smoking other than possibly calming effe ct, though hope lorazepam will help with anxiety. Could consider mirtazapine in t he future if lorazepam ineffective or he has increased nausea or insomnia. 3. Anxiety Possibly increased anxiety and some tremors which could be r/t chemotherapy medications but also diagnosis. Apparent ly lorazepam will be getting prescribed. Will re-eval in 1 month. 4. Squamous cell carcinoma of sakina ng Recently received IV chemother apy. His IV site looks okay and there are no evident signs of phlebitis or infection but I did encourage him to continue to use hot compresses which he is amenable to. We also discussed medicinal marijuana and should he feel the need to use it for pa in or nausea I rec. he consider edible sources and not inhalation. Discussion Note: None recorded.Patient educational handouts: No information available. Plan of Care Reminders Provider Appointments Follow up 10/30/2021 Ty Jenkins, 8:40AM ACCOUNT SERVICES MANAGER Lab None ? ? recorded. Referral None ? ? recorded. Procedures None ? ? recorded. Surgeries None ? ? recorded. Imaging None ? ? recorded. Medications Name Start Date ? ? albuterol sulfate 2.5 mg/3 mL (0.083 %) solution for n ebulization ? Inhale 3 mL every 2 hours by nebulization route as ne eded. albuterol sulfate HFA 90 mcg/actuation aerosol inhaler ? inhale 2 puffs by mouth every 4 hours if needed Asprin Ec Low Dose 81 mg tablet,delayed release ? Take 1 tablet twice a day by oral route. carboplatin ? Compazine 10 mg tablet ? Take 1 tablet 3 times a day by oral route as needed. ipratropium 0.5 mg-albuterol 3 mg (2.5 mg base)/3 mL n ebulization soln ? Inhale 3 mL 4 times a day by nebulization route as ne eded for 30 days. Keytruda ? Lasix ? lisinopril 5 mg tablet ? take 1 tablet by mouth once daily Serevent Diskus 50 mcg/dose powder for inhalation ? inhale 1 puff by mouth twice a day Spiriva Respimat 2.5 mcg/actuation solution for inhala tion ? Inhale 2 puffs every day by inhalation route for 30 d ays. Taxol 6 mg/mL concentrate,intravenous ? Inject by intravenous route. Notes: medication reviewed 16:45 Medications Administered None recorded. Vitals Height Weight BMI Blood Pressure 5 ft 8 in 216 lbs 32.8 kg/m2 124/84 mm[Hg] Results Lab Results None recorded. Allergies Code Code System Name Reaction Severity Onset 12772 RxNorm Venlafaxine Abdominal Pain Moderate 0 300934 RxNorm Chantix Vomiting Severe ? 87639 RxNorm Gabapentin ? ? ? 5640 RxNorm Ibuprofen ? ? ? 7531 RxNorm Nortriptyline ? ? ? 06371 RxNorm Percocet Vomiting Severe ? 88168 RxNorm Prozac ? ? ? 3616915 RxNorm Spinach Vomiting ? ? 47658 RxNorm Tizanidine Other Severe ? Wellbutrin Hallucinations ? ? Problems Name Status Onset Date Source ? Eruption Active 09/15/2015 ? Pain in Right Hand Active 09/15/2015 ? Chronic Obstructive Lung Disease Active 11/14/2015 ? Adult Health Examination Active 04/14/2016 ? Osteoarthritis of Knee Active 04/16/2016 ? Chronic Back Pain Active 05/05/2016 ? Memory Impairment Active 12/30/2016 ? Injury of Kidney Active 12/30/2016 ? Chronic Neck Pain Active 02/07/2017 ? Pulmonary Embolism Active 05/08/2017 ? Varicose Veins of Lower Extremity Active 05/24/2017 ? Achilles Tendinitis Active 01/02/2018 ? Fracture of Rib Active 02/09/2018 ? Anxiety Active 03/13/2018 ? Closed Fracture of Shaft of Ulna Active 04/10/2018 ? Hyperlipidemia Active 12/01/2018 ? Depressive Disorder Active 03/24/2020 ? Chronic Pain Active 10/05/2020 ? Nodule of Lung Active 08/24/2021 ? Squamous Cell Carcinoma of Lung Active 09/08/2021 ? Tobacco User Active ? ? Headache Disorder Active ? ? Hypertensive Disorder Active ? ? [...] Surgery Information not av ailable Notes: right Notes: 07/14/16 L4-5 laminectomy and fusion with local bone graft by Naren [facility]- Vaccine List Vaccine Type COVID-19 (SARS-COV-2) vaccine, unspecifi ed 10/12/2020 11/08/2020 COVID-19, mRNA, LNP-S, PF, 30 mcg/0.3 mL dose (SpinGo) 06/12/2021 Hep B, adult 11/07/2008 12/24/2010 Hep B, unspecified formulation 12/17/2008 influenza, high-dose, quadrivalent 06/11/2020?0.7 mL 06/12/2021 influenza, injectable, quadrivalent 06/14/2014 influenza, injectable, quadrivalent, pre servative free 05/11/2017?0.5 mL 08/16/2018?0.5 mL 05/24/2019 pneumococcal polysaccharide PPV23 05/24/2019?0.5 mL pneumococcal, unspecified formulation 11/01/2011 Td (adult) 11/01/2011 zoster recombinant 0.5 mL Social History Tobacco Smoking Status Heavy Tobacco Smoker (1/2 pack Note s: 2 cogs today per day) 10/01/21 03/18/21 What type of diet are you REGULAR following? Do you have difficulty N walking or climbing stairs? Are you able to walk? YESWOREST Are you currently employed? N Are you able to care for Y yourself? Marital status Are you currently waiting on N results of a COVID-19 test? What is your code status? 0 How much tobacco do you chew? 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 Are you isolating or N quarantining because you may have been exposed to a person with COVID-19 or are worried that you may be sick with COVID-19? Confirmed Code Status: Full Code What is your level of alcohol Occasional consumption? Education 12 Which illicit or recreational Remote history drugs have you used? Guardianship/Legal Issues No Have you been to an area N known to be high risk for COVID-19? Are you deaf or do you have N serious difficulty hearing? Was patient offered smoking No cessation Smoke alarm in home Y Seat belts used routinely N At what age did you start 14 smoking tobacco? Do you have difficulty N dressing or bathing? Has the patient received an No- There are no influenza vaccination this contraindications to receiving year? vaccine Have you received the covid Y vaccine this year? (If so, document vaccination in Vaccine Module in [place]) Daily caffeine consumption: moderate Notes: 2 cups of coffee daily, no sod a Has tobacco cessation N Notes: refused counseling been provided? Are you blind or do you have N difficulty seeing? Do you have transportation N difficulties? Do you have a life line? N Relationship Status In the 14 days before symptom N onset, have you had close contact with a person who is under investigation for COVID-19 while that person was ill? Does the patient request an No. Patient declines vaccine at influenza vaccine? this time Do you use sunscreen N routinely? What was the date of your 10/01/2021 most recent tobacco screening? Do you have an advanced N directive? Do you or have you ever used Never used electronic cigarette s e-cigarettes or vape? In the 14 days before symptom N onset, did the patient spend time in [facility]? In the 14 days before symptom N onset, have you had close contact with a laboratory-confirmed COVID-19 while that case was ill? What is your exercise level? None How many years have you 1 smoked tobacco? Recurrent fall? N Domestic violence: N Has the Patient Received a Yes- after age 65 and LESS than Pneumonia Vaccination? 5 years ago. Re-vaccination is NOT recommended Live alone or with others? with others Have you travelled outside of [facility] in the past 14 days? Have you experienced any of N the following symptoms in the past 48 hours? Fever/Chills, Cough, Shortness of breath or difficulty breathing, fatigue, muscle or body aches, headache, new loss of taste or smell, sore throat, congestion or runny nose, nausea or vomiting and/or diarrhea Have you had any vaccines in N the last month or do you have any vaccines scheduled? Do you or have you ever used Never used smokeless tobacco smokeless tobacco? On what date was tobacco Notes: gloria [email or web address] cessation counseling answered No to the provided? Tobacco cessation counseling provided question on 02/10/2018.refused Within the past 14 days, have N you been in close physical contact (6 feet or closer for a cumulative total of 15 minutes) with anyone that is known to have laboratory-confirmed COVID-19? OR Anyone who has any symptoms consistent with COVID-19? Do you have difficulty N concentrating, remembering or making decisions? Hard of hearing or deaf in N one or both ears? If patient spent time in [facility] - Does the patient live in [facility]? Does the Patient request a Patient Declines Vaccination at pneumonia vaccine? this time daily alcohol consumption: occasional Notes: nicolás t alcohol 04/26/17 , use to dri nk 12 p on weekend but heavily in past Family History Relation Problem Onset Age of Age Notes Maternal Grandmother Malignant tumor of breast (No N/A (No Notes) Information) Maternal Grandmother Malignant neoplasm of (No N/A (No Notes) liver Information) Father Coronary arteriosclerosis 51 N/A (N o Notes) Father Chronic obstructive lung (No N/A (No Notes) disease Information) Father Hypertensive disorder (No N/A (No No ania) Information) Mother Schizophrenia (No N/A (No Notes) Information) Mother Hypertensive disorder (No N/A (No No ania) Information) Functional Status No Impairment. Past Encounters 10/01/2021 Chronic Obstructive Lung Disease; Tobacc o User; Anxiety; Squamous Cell Carcinoma of Lung Ty Jenkins, ACCOUNT SERVICES MANAGER: [address] [place] [address], Ph. [phone] 08/31/2021 Chronic Obstructive Lung Disease; Hypert ensive Disorder; Tobacco User; Cyst of Skin; Anxiety; Nodule of Lung Ty Jenkins, ACCOUNT SERVICES MANAGER: [address] [place] [address], Ph. [phone] History of Present Illness Note: <div>Reason for Visit/Add'l information: First chemo was yesterday. 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 Info seems {{reliable* not reliable}}.</div><div>Were there any discrepancies? {{No Yes*}}. If yes, then list-</div><div>Medications completed due to endof course if any - no</div><div>
</div><div>Have you been seen by another provider, had an ER visit or hospitalization since our last visit here on 08/31/21: [facility] oncology, pulmonology</div><div>
</div><div>And have any Medications been added, stopped or adjusted since last visit? see med list</div><div>Provider HPI</div><div>
</div><div>Lung cancer: Just started chemotherapy yesterday through IV, notes some pain in the forearm above IV site but no redness or swelling. WIll be getting a port placed. </div><div>
</div><div>COPD: Still smoking, smoked 2 cigarettes this morning which is generally less than usual. Does aim to quit. </div><div>
</div><div>Diet: Continues to eatplentiful fruits/vegetables and spices. </div><div>
</div><div>Anxiety: Feeling very shaky and anxious--was told by oncology that they will prescribe lorazepam which has worked well for him in the past. Does report sleeping well. Feels like he can't stop talking. </div>Review of Systems: ROS as noted in the HPI Review of Systems None recorded. Physical Exam ? General Adult Exam Reported By: Patient Constitutional: General Appearance: healthy- appearing, well-developed, overweight. Level of Distress: NAD. Ambu lation: ambulating normally Psychiatric: Insight: good judgement. Men janneth Status: active and alert, normal mood, normal affect. Orienta tion: to time, to place, to person. Memory: recent memory normal , remote memory normal Head: Head: normocephalic, atrauma tic Eyes: Lids and Conjunctivae: non-i njected, no discharge, no pallor. Pupils: PERRLA. Corneas: grossly int act Lungs: Respiratory effort: no dyspn ea. Auscultation: no wheezing, no rales/crackles, decreased br eath sounds, diminished air movement Cardiovascular: Heart Auscultation: RRR, nor mal S1, normal S2, no murmurs, no rubs Neurologic: Cranial Nerves: grossly inta ct Skin: Inspection and palpation: no rash, no lesions, no ulcer, no abnormal nevi
--- OUTSIDE RECORDS SUMMARY | 2021-10-23 11:20 | XMS_ITS | Encounter Summary ---
:1955 Author Care Team Providers Name Role Phone Ty Jenkins Primary Care Provider [phone] Ty Jenkins (Direct) Primary Care Provider [phone] Dr. Karishma Mchugh Referring Provider [phone] Ty Jenkins Referring Provider [phone] Loren Yung MD Surgical Oncologist [phone] Reason for Visit f/u COPD/smoking/weight/ Assessment and Plan Assessment Note RTC in 4 months 1. Chronic obstructive lung dise ase States of dyspnea on exertion however he is not faithfully using Spiriva and occasionally using Serevent. Rec. he use these daily and that they not only improve lung function but prevent exacer bations. Pt. amenable to start using again. 2. Hypertensive disorder Normotensive with good control . He does have some elevated diastolic readings at home but likely r/t anxiety and transient. 3. Tobacco user Continues to smoke despite rec ent findings of pulmonary nodules on LDCT, however receptive to quit should it be c ancer. Did educate that benign nodules can turn into malignant nodules if he contin ues to smoke. Rec. hypnosis which he was not receptive to today. 4. Cyst of skin Fleshy growth on posterior upp er thigh of right leg. Does not show any signs of potential carcinoma but will refer to derm for evaluation and possible excisions. 08/31/21: Pt. reports it is getting small er and would just like to keep an eye on it which makes sense. 5. Anxiety Increased anxiety r/t LDCT fin dings. He declines any treatment measures for the time being but I did rec. some liter ature on ways in which he may get control of his diagnosis/outcome and rec. OTC treat ment measures for anxiety. Will RTC in 1 month. 6. Nodule of lung Biopsy planned Discussion Note: None recorded.Patient educational handouts: No information available. Plan of Care Patient Instructions --You can look into the book the An ticancer Way of Life by Chilo Sams --Use the Spiriva and Serevent daily. --I would use vasoline or saline rinses in the right nose. --Ideally you blood pressure should be 1 20/80. 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 ? recorded. Referral None [...] BMI Blood Pressure 5 ft 8 in 213 lbs 32.4 kg/m2 124/86 mm[Hg] Results Lab Results None recorded. Allergies Code Code System Name Reaction Severity Onset 96263 RxNorm Venlafaxine Abdominal Pain Moderate 0 694569 RxNorm Chantix Vomiting Severe ? 19132 RxNorm Gabapentin ? ? ? 3305 RxNorm Ibuprofen ? ? ? 7531 RxNorm Nortriptyline ? ? ? 78591 RxNorm Percocet Vomiting Severe ? 62584 RxNorm Prozac ? ? ? 6085974 RxNorm Spinach Vomiting ? ? 58155 RxNorm Tizanidine Other Severe ? Wellbutrin Hallucinations [...] fusion with local bone graft by [facility]ine [place] Vaccine Type COVID-19 (SARS-COV-2) vaccine, unspecifi ed 10/12/2020 11/08/2020 COVID-19, mRNA, LNP-S, PF, 30 mcg/0.3 mL dose (TeachBoost) 06/12/2021 Hep B, adult 11/07/2008 12/24/2010 Hep [...] medical power Y Notes: Wi fe of claims attorney? Are you isolating or N quarantining because [...] so, document vaccination in Vaccine Module in [place]) Daily caffeine consumption: moderate Notes: 2 cups [...] onset, did the patient spend time in [facility]? In the 14 days before symptom [...] with others Have you travelled outside of [place] in the past 14 days? Have you [...] tobacco? On what date was tobacco Notes: fiona [email or web address] cessation counseling answered No to the [...] both ears? If patient spent time in N [facility] - Does the patient live in [facility]? Does the Patient request a Patient Declines [...] Information) Functional Status No Impairment. Past Encounters 08/31/2021 Chronic Obstructive Lung Disease; Hypert ensive Disorder; Tobacco User; Cyst of Skin; Anxiety; Nodule of Lung Ty Jenkins, STEAMER OPERATOR: [address] [place] [address], Ph. History of Present Illness Note: <div>Reason for Visit/Add'l information: May need to increase Lisinopril, BP has been high.</div><div>f/u COPD/smoking/weight/ </div><div>
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 Info seems {{reliable* not reliable}}.</div><div>Were there any discrepancies? {{No* Yes}}. If yes, then list-</div><div>Medications completed due to end of course if any - no</div><div>
</div><div>Have you been seen by another provider, had an ER visit or hospitalization since our last visit here on 04/29/21: [facility] [place]</div><div>
</div><div>And have any Medications been added, stopped or adjusted since last visit? no</div><div>Prov ider HPI</div><div>
</div><div>Recently had LDCT which showed severel nodules and lymphadenopathy which could be indicative of malignancy. Had consultation with [facility] consultant at and will be getting biopsy performed. </div><div>
</div><div>Hypertension: Reports diastolic number sometimes in the 90s which has increased since he obtained the results of his CT scan. </div><div>
</div><div>COPD: Still smoking 1/2ppd. More onsome days. </div><div>
</div><div>Diet: Continues to eat plentiful fruits/vegetables and spices. </div><div>
</div><div>Anxiety: Sleeping terrible though chronic. Has had increased anxiety since diagnosis. Some panic attacks</div>Review of Systems: ROS as noted in the [...] pallor. Pupils: PERRLA. Corneas: grossly int act Neurologic: Cranial Nerves: grossly inta ct Skin: Inspection and palpation: no rash, no lesions, no ulcer, no abnormal nevi
--- NOTE | 2021-10-23 12:06 | ED.GENADUL_ITS ---
Discharge Plan Disposition Patient Disposition: HOME Condition: Stable Discharge Details Clinical Impression: Neck pain on left side, Post-op pain Primary Care Provider: Ty Jenkins ED Provider: Marcel Vargas Home Meds and New Rx's Prescriptions: Continued albuterol sulfate 2.5 MG/3 ML solution for nebulization 2.5 mg Inhalation Q2H PRN PRN0RF acetaminophen [Acetaminophen Extra Strength] 500 MG tablet 2 tab PO PRN PRN0RF aspirin 81 mg Tablet,Chewable 81 mg PO BID 0RF lisinopril 5 mg tablet 5 mg PO DAILY 0RF Label Comments: take 1 tablet by mouth once daily Spiriva Respimat 2.5 mcg/actuation mist 1 puff INHALATION BID 0RF Label Comments: inhale 2 puffs by mouth and INTO THE LUNGS once daily Serevent Diskus 50 mcg/dose blister with device 2 inh INHALATION 0RF Label Comments: inhale 1 puff by mouth twice a day Discharge Instructions Additional Instructions: Please take acetaminophen (tylenol) - 650mg every 6 hours by mouth as needed for pain. Please follow-up with your oncologist and vascular surgery/IR at [facility]. Please contact your primary care physician to arrange follow-up. Return to the ER immediately for any worsening or new concerning symptoms. Referrals: Ty Jenkins [Primary Care Provider] - Discharge Data Discharge Date/Time-TO BE ENTERED AT DEPARTURE: 10/23/21 17:53 Medical Decision Making 65-year-old male presents approximately 2 weeks status post left chest intravascular port placement for treatment of his non-small cell lung cancer is here with left-sided neck pain. Concern for hematoma versus erroneous port placement versus vascular injury versus other. Plan to obtain CT of the neck and chest to assess for acute surgical process. Labs reviewed and nondiagnostic. CT of the neck and chest were reviewed and interpreted by radiology who I spoke with: No acute injury, port placement is appropriate. Results were discussed with the patient. Plan for outpatient follow-up. I encouraged him to call his specialist at [facility] [place] to arrange timely follow-up. HPI General Mode of arrival: ambulatory . Date/Time Provider Initiated Documentation: 10/23/21 11:31 . Limitations to Documentation: no limitations . Information obtained by: patient . HPI Narrative: 65-year-old male with history of non-small cell lung cancer, recently had intravascular port placed left chest about 2 weeks ago, presents today with chief complaint of left neck pain. Patient notes he started to have some pain a few days after port placement. Pain has persisted and progressed. Now moderate to severe and worse when he turns his neck. Patient also has some tenderness on palpation in the area. No associated numbness or tingling. No chest pain. Related Data Home Medications Medication Instructions Recorded Confirmed albuterol sulfate 2.5 mg INHALATION Q2H PRN PRN 02/27/16 03/02/16 acetaminophen 500 mg tablet 2 tab PO PRN PRN 03/02/16 10/23/21 (Acetaminophen Extra Strength) aspirin 81 mg chewable tablet 81 mg PO BID 10/23/21 10/23/21 lisinopril 5 mg tablet 5 mg PO DAILY 10/23/21 10/23/21 salmeterol 50 mcg/dose blister 2 inh INHALATION 10/23/21 powder for inhalation (Serevent Diskus) tiotropium bromide 2.5 1 puff INHALATION BID 10/23/21 10/23/21 mcg/actuation mist for inhalation (Spiriva Respimat) Allergies Allergy/AdvReac Type Severity Reaction Status Date / Time gabapentin Allergy Unknown swelling Unverified 10/23/21 11:17 spinach AdvReac Intermediate Nausea Unverified 10/23/21 11:17 ibuprofen AdvReac Unverified 10/23/21 11:17 General Stated Complaint: GenMedical FRANCIS: 2 Review of Systems All systems reviewed & are unremarkable except as noted in HPI and below Constitutional Constitutional: Denies fever(s) Integumentary/Breasts Skin/Breast: Denies rash PFSH All Active Problems (Updated 10/23/21 @ 13:48 by Marcel Vargas MD) Neck pain on left side (Acute) Post-op pain (Acute) Medical History Achilles tendinitis Anxiety Atelectasis Cellulitis Chronic back pain Chronic neck pain Constipation COPD (chronic obstructive pulmonary disease) Facial rash Fracture, cervical vertebra Headache disorder HTN (hypertension) Injury of kidney Memory impairment Osteoarthritis Pain in right hand Pulmonary embolism Rib fracture Tobacco use Varicose veins of lower extremity Surgical History Arthroscopy, Shoulder Extraction of cataract right foot surgery Open Carpal Tunnel release Spinal Fusion Dr. Sneed vena cava filter Family History Mother Essential hypertension Schizophrenia Father Essential hypertension CAD (coronary artery disease) COPD (chronic obstructive pulmonary disease) Grandmother Breast cancer Cancer Social History Smoking/Tobacco Use Status: Current every day Tobacco Type: cigarettes Smoking risk assessment performed?: Yes Drug use: Occasionally Substance use type: marijuana Exam Const General: cooperative and no acute distress HENMT Head: normocephalic and atraumatic Mouth: moist mucous membranes Eyes Conjunctivae: normal conjunctivae Sclera: normal sclerae Neck Neck: trachea midline and supple Lymphatic: no lymphadenopathy noted Other: Tender to palpation with mild swelling left anterior lateral neck Chest Other: Subcutaneous port left upper chest with line that appears to traverse supraclavicularly and superiorly today Resp Auscultation: clear to auscultation bilaterally, no rales, no rhonchi and no wheezes Cardio Rate: regular rate and not tachycardic Rhythm: regular rhythm Skin General skin exam: no rashes or lesions noted Neuro General: patient alert, patient awake, patient oriented x3 and tone normal Course Vital Signs Vital signs: Vital Signs Temperature 36.6 C 10/23/21 11:11 Pulse 108 H 10/23/21 11:11 Respiratory Rate 17 10/23/21 11:11 Pulse Oximetry 99 10/23/21 11:11 Temperature 36.6 C 10/23/21 11:11 Temperature Source Skin 10/23/21 11:11 Pulse 101 H 10/23/21 11:17 Pulse 107 H 10/23/21 11:17 Respiratory Rate 15 10/23/21 11:17 Respiratory Effort 10/23/21 11:11 Blood Pressure 134/83 10/23/21 11:17 Blood Pressure Mean 93 10/23/21 11:17 Pulse Oximetry 100 10/23/21 11:17 Oxygen Delivery Method Room Air 10/23/21 11:11 Oxygen Flow Rate 0 10/23/21 11:11 Pain Level 10 10/23/21 11:11 PAWSS Have you Been Recently Intoxicated or Drunk Within the Last 30 days?: Yes Have you Ever Experienced Previous Episodes of Alcohol Withdrawal?: Yes Have you ever Experienced Withdrawal Seizures?: No Have you ever Experienced Delirium Tremens(DT)s?: No Have you ever undergone Alcohol Rehabilitation Treatment (i.e, inpt ot outpatient treatment programs)?: Yes Have you ever Experienced Blackouts?: Yes Have you ever Combined Alcohol with other Downers within the last 90 days?: No Have you ever Combined Alcohol with any other Substance of Abuse during the last 90 days?: No Result: 4
--- NOTE | 2021-10-23 12:15 | DI.CT_ITS ---
Exam(s) CT NECK CHEST WO EXAM: CT NECK CHEST WO CLINICAL HISTORY: pain left neck, 2wks post port placement TECHNIQUE: No IV contrast COMPARISON: MR MRI CSPINE W/O CNTRS from 10/11/2017 FINDINGS: CT SCAN SOFT TISSUES NECK WITHOUT IV CONTRAST: As per request, the course of the left supra clavi in Port-A-Cath is straight without kinking. It tr averses the posterior aspect of the left sternocleidomastoid muscle (no obvious hematoma at this leve l) and traverses down the left internal jugular vein into the innominate vein a semi: Across the inno minate vein down the SVC. The distal tip is in the lower SVC just above the SVC RA junction. There is no obvious hematoma along the course of this catheter at and no kinking. No incidental masses in the neck. Visualized paranasal sinuses reveal prominent circumferential mucosal thickening left maxillary sinus not associated with a fluid level. Lesser amount of mucosal thickening in the right maxillary sinus . Nasopharynx, oropharynx, and hypopharynx appear unremarkable as does the free edge of the epiglottis. No obvious abnormality at level of vocal cords and subglottic airway. Thyroid gland is difficult to evaluate due to some motion but is not enlarged. No obvious abnormality in the parotid and submandibular glands. There is no obvious lymphadenopathy in the neck and supraclavicular regions. Incidentally noted is anterior fusion plate in the lower cervical spine. There is an element of ante rolisthesis of C3 upon C4, this most probably related to predominately unilateral facet arthropathy a t this level. There are no lytic osseous lesions identified. CT CHEST WITHOUT IV CONTRAST: There are no prior studies for comparison. This patient has a known lung malignancy. Lungs: There is an all ominous spiculated malignant-appearing nodule in the right upper lobe measurin g approximately 2.5 by 2.2 cm. Lower down the right upper lobe there are 2 adjacent smaller nodules both measuring 5 millimeters. There is a smaller 3 millimeter nodule lower down in the right lower l obe. No pleural effusion. In the opposite-left lung there is a 1 centimeter nodular density in the upper lobe. Benign-appearin g increased markings are noted in the lingular segment. No pleural effusion. No significant focal findings in the trachea and mainstem bronchi. MEDIASTINUM: Slight prominence of the right hilum probably indicates slightly prominent lymph nodes, difficult to assess without IV contrast. There are few slightly prominent lymph nodes in the right p aratracheal region and subcarinal region. Left hilum appears unremarkable. There is no adenopathy i n the anterior mediastinal fat. CARDIAC: Heart size is normal. No pericardial effusion. Moderate amount of coronary artery calcific ation noted. Diameter of the ascending thoracic aorta is 3.5 cm. OSSEOUS: Anterior fusion plate in the lower cervical spine noted. No lytic osseous lesions evident. No fractures. IMPRESSION: 1. Position of the left supra clavian Port-A-Cath, as described above (as per request). 2. Right upper lobe 2.2 x 2.5 spiculated malignant-appearing lung nodule. Other smaller nodules in t he right lung as well as a 1 centimeter nodule in the left upper lobe. There are no pleural effusion s. 3. Probable right hilar adenopathy. Also slightly prominent lymph nodes in the right paratracheal re gion. Findings discussed with ER physician following completion of the study.
[2021-10-23] MEDS: Acetaminophen 325 MG TAB 650 MG PO (12:33)
== END 2021-10-23 17:53 | disposition home or self-care (01) ==
PROVIDERS: Emergency Provider Student in an Organized Health Care Education/Training Program; PCP Nurse Practitioner Acute Care
DX: M54.2 Cervicalgia (principal); G89.18 Other acute postprocedural pain; Z95.828 Presence of other vascular implants and grafts; C34.90 Malignant neoplasm of unspecified part of unspecified bronchus or lung; F17.210 Nicotine dependence, cigarettes, uncomplicated
CPT/HCPCS: 71271; 99284; 70490; 99283

== ENCOUNTER 2021-10-26 09:06 | Outpatient (RCR) | payer OTHER, MEDICAID, SELFPAY ==
[2021-10-26 09:25] LABS: Abs Immature Grans 0.02 10^3/uL (0.0-0.06); Absolute Basophil Count 0.03 10^3/uL (0.0-0.2); Absolute Eosinophil Count 0.12 10^3/uL (0.0-0.7); Absolute Lymphocyte Count 1.34 10^3/uL (1.2-3.4); Absolute Neutrophil Count 3.49 10^3/uL (1.2-6.7); Basophils % 0.5; Eosinophils % 2.1; HCT 44.7 % (40.0-50.0); HGB 14.6 g/dL (13.5-17.5); Immature Grans % 0.4; Lymphocytes % 23.9; MCH 31.5 pg (27.0-33.0); MCHC 32.7 % (32.0-36.0); MCV 96.3 fL (80-95); MPV 8.5 fL (8.0-11.0); Monocytes % 10.7; Neutrophils % 62.4; Nucleated RBC 0 %; Platelet Count 186 10^3/uL (130-400); RBC 4.64 10^6/uL (4.36-5.78); RDW 13.1 % (11.8-14.1); RDW-SD 46.1 fL
[2021-10-26 09:50] LABS: ALT 26 U/L (16-63); AST 13 U/L (15-37); Albumin 3.6 g/dL (3.4-5.0); Alkaline Phosphatase 123 U/L (46-116); Anion Gap 6.6 mmol/L (3-11); BUN 13 mg/dL (7-18); Bilirubin, Total 0.4 mg/dL (0.2-1.0); CO2 30.4 mmol/L (21.0-32.0); CREATININE 0.8 mg/dL (0.70-1.30); Calcium 8.8 mg/dL (8.5-10.1); Chloride 103 mmol/L (98-107); FREE T4 1.65 ng/dL (0.76-1.46); Glucose 112 mg/dL (74-106); Magnesium 1.9 mg/dL (1.8-2.4); Potassium 4.7 mmol/L (3.5-5.1); Sodium 140 mmol/L (136-145); TSH 0.03 uIU/mL (0.36-3.74); Total Protein 7.6 g/dL (6.4-8.2)
== END 2021-11-12 23:59 | disposition home or self-care (01) ==
LOC: INF 09:06
PROVIDERS: Internal Medicine Medical Oncology; PCP Nurse Practitioner Acute Care; Visit Provider Nurse Practitioner Adult Health
DX: C34.11 Malignant neoplasm of upper lobe, right bronchus or lung (principal); Z79.899 Other long term (current) drug therapy; E03.2 Hypothyroidism due to medicaments and other exogenous substances; Z45.2 Encounter for adjustment and management of vascular access device
CPT/HCPCS: 36415; 80053; 83735; 84439; 84443; 85025

== ENCOUNTER 2021-11-16 03:47 | Outpatient (RCR) | payer OTHER, SELFPAY ==
[2021-11-16] MEDS: Normal Saline Flush 10 ML SYR IVP (09:19)
[2021-11-16 09:20] LABS: Abs Immature Grans 0.12 10^3/uL (0.0-0.06); Absolute Basophil Count 0.04 10^3/uL (0.0-0.2); Absolute Eosinophil Count 0.05 10^3/uL (0.0-0.7); Absolute Lymphocyte Count 1.86 10^3/uL (1.2-3.4); Absolute Monocyte Count 0.68 10^3/uL (0.1-0.8); Absolute Neutrophil Count 2.71 10^3/uL (1.2-6.7); Basophils % 0.7; Eosinophils % 0.9; HCT 42.1 % (40.0-50.0); HGB 13.5 g/dL (13.5-17.5); Immature Grans % 2.2; Lymphocytes % 34.1; MCH 31.8 pg (27.0-33.0); MCHC 32.1 % (32.0-36.0); MCV 99.1 fL (80-95); MPV 8.3 fL (8.0-11.0); Monocytes % 12.5; Neutrophils % 49.6; Nucleated RBC 0 %; Platelet Count 163 10^3/uL (130-400); RBC 4.25 10^6/uL (4.36-5.78); RDW 14.6 % (11.8-14.1); RDW-SD 51.2 fL; WBC 5.46 10^3/uL (4.4-10.8)
[2021-11-16 09:43] LABS: ALT 22 U/L (16-63); AST 13 U/L (15-37); Albumin 3.3 g/dL (3.4-5.0); Alkaline Phosphatase 96 U/L (46-116); Anion Gap 4.7 mmol/L (3-11); BUN 11 mg/dL (7-18); Bilirubin, Total 0.2 mg/dL (0.2-1.0); CO2 31.3 mmol/L (21.0-32.0); CREATININE 0.9 mg/dL (0.70-1.30); Calcium 8.3 mg/dL (8.5-10.1); Chloride 102 mmol/L (98-107); FREE T4 0.25 ng/dL (0.76-1.46); Glucose 93 mg/dL (74-106); Magnesium 1.7 mg/dL (1.8-2.4); Potassium 4.7 mmol/L (3.5-5.1); Sodium 138 mmol/L (136-145); TSH 50.72 uIU/mL (0.36-3.74); Total Protein 6.9 g/dL (6.4-8.2)
== END 2021-12-12 23:59 | disposition home or self-care (01) ==
LOC: INF 03:47
PROVIDERS: PCP Nurse Practitioner Acute Care; Visit Provider Nurse Practitioner Adult Health
DX: C34.11 Malignant neoplasm of upper lobe, right bronchus or lung (principal); E03.2 Hypothyroidism due to medicaments and other exogenous substances; Z45.2 Encounter for adjustment and management of vascular access device; Z79.899 Other long term (current) drug therapy
CPT/HCPCS: 36591; 80053; 83735; 84439; 84443; 85025

== ENCOUNTER 2021-12-07 15:20 | Outpatient (REF) | payer OTHER, SELFPAY ==
[2021-12-07 10:29] LABS: Abs Immature Grans 0.04 10^3/uL (0.0-0.06); Absolute Basophil Count 0.03 10^3/uL (0.0-0.2); Absolute Eosinophil Count 0.06 10^3/uL (0.0-0.7); Absolute Lymphocyte Count 1.31 10^3/uL (1.2-3.4); Absolute Neutrophil Count 2.14 10^3/uL (1.2-6.7); Basophils % 0.7; Eosinophils % 1.5; HGB 12.3 g/dL (13.5-17.5); Lymphocytes % 32.1; MCH 32.9 pg (27.0-33.0); MCHC 33.2 % (32.0-36.0); MCV 98.9 fL (80-95); MPV 8.9 fL (8.0-11.0); Monocytes % 12.3; Neutrophils % 52.4; Platelet Count 125 10^3/uL (130-400); RBC 3.74 10^6/uL (4.36-5.78); RDW 16.6 % (11.8-14.1); RDW-SD 58.4 fL; WBC 4.08 10^3/uL (4.4-10.8)
[2021-12-07 10:50] LABS: ALT 19 U/L (16-63); AST 14 U/L (15-37); Albumin 3.4 g/dL (3.4-5.0); Alkaline Phosphatase 98 U/L (46-116); Anion Gap 4.2 mmol/L (3-11); BUN 11 mg/dL (7-18); Bilirubin, Total 0.2 mg/dL (0.2-1.0); CO2 31.8 mmol/L (21.0-32.0); CREATININE 0.8 mg/dL (0.70-1.30); Calcium 8.3 mg/dL (8.5-10.1); Chloride 100 mmol/L (98-107); FREE T4 0.46 ng/dL (0.76-1.46); Glucose 94 mg/dL (74-106); Magnesium 1.7 mg/dL (1.8-2.4); Potassium 4.3 mmol/L (3.5-5.1); Sodium 136 mmol/L (136-145); TSH 72.37 uIU/mL (0.36-3.74); Total Protein 6.8 g/dL (6.4-8.2)
== END 2021-12-07 15:21 | disposition home or self-care (01) ==
LOC: LBN 15:20
PROVIDERS: PCP Nurse Practitioner Acute Care; Visit Provider Internal Medicine Medical Oncology
DX: C34.11 Malignant neoplasm of upper lobe, right bronchus or lung (principal); E03.2 Hypothyroidism due to medicaments and other exogenous substances; Z79.899 Other long term (current) drug therapy
CPT/HCPCS: 80053; 83735; 84439; 84443; 85025

== ENCOUNTER 2021-12-28 02:57 | Outpatient (RCR) | payer OTHER, SELFPAY ==
[2021-12-28] MEDS: Normal Saline Flush 10 ML SYR IVP (08:14)
[2021-12-28 08:31] LABS: Abs Immature Grans 0.08 10^3/uL (0.0-0.06); Absolute Basophil Count 0.03 10^3/uL (0.0-0.2); Absolute Eosinophil Count 0.04 10^3/uL (0.0-0.7); Absolute Lymphocyte Count 1.42 10^3/uL (1.2-3.4); Absolute Monocyte Count 0.58 10^3/uL (0.1-0.8); Absolute Neutrophil Count 1.88 10^3/uL (1.2-6.7); Basophils % 0.7; HCT 33.1 % (40.0-50.0); HGB 10.8 g/dL (13.5-17.5); Lymphocytes % 35.2; MCH 33.9 pg (27.0-33.0); MCHC 32.6 % (32.0-36.0); MCV 104 fL (80-95); Monocytes % 14.4; Neutrophils % 46.7; Platelet Count 107 10^3/uL (130-400); RBC 3.19 10^6/uL (4.36-5.78); RDW 17.8 % (11.8-14.1); RDW-SD 66.4 fL; WBC 4.03 10^3/uL (4.4-10.8)
[2021-12-28 08:50] LABS: ALT 19 U/L (16-63); AST 14 U/L (15-37); Albumin 3.5 g/dL (3.4-5.0); Alkaline Phosphatase 93 U/L (46-116); Anion Gap 5.7 mmol/L (3-11); BUN 15 mg/dL (7-18); Bilirubin, Total 0.3 mg/dL (0.2-1.0); CO2 32.3 mmol/L (21.0-32.0); CREATININE 0.8 mg/dL (0.70-1.30); Calcium 8.2 mg/dL (8.5-10.1); Chloride 102 mmol/L (98-107); FREE T4 0.85 ng/dL (0.76-1.46); Glucose 116 mg/dL (74-106); Magnesium 1.7 mg/dL (1.8-2.4); Potassium 4.3 mmol/L (3.5-5.1); Sodium 140 mmol/L (136-145); Total Protein 6.9 g/dL (6.4-8.2)
== END 2022-01-12 23:59 | disposition home or self-care (01) ==
LOC: INF 02:57
PROVIDERS: PCP Nurse Practitioner Acute Care; Visit Provider Nurse Practitioner Adult Health
DX: Z79.899 Other long term (current) drug therapy (principal); Z45.2 Encounter for adjustment and management of vascular access device; E03.2 Hypothyroidism due to medicaments and other exogenous substances; C34.11 Malignant neoplasm of upper lobe, right bronchus or lung
CPT/HCPCS: 36591; 80053; 83735; 84439; 84443; 85025

== ENCOUNTER 2022-02-08 03:05 | Outpatient (RCR) | payer OTHER, SELFPAY ==
[2022-01-18] MEDS: Normal Saline Flush 10 ML SYR IVP (08:44)
[2022-01-18 09:01] LABS: Abs Immature Grans 0.04 10^3/uL (0.0-0.06); Absolute Basophil Count 0.02 10^3/uL (0.0-0.2); Absolute Eosinophil Count 0.12 10^3/uL (0.0-0.7); Absolute Lymphocyte Count 1.27 10^3/uL (1.2-3.4); Absolute Monocyte Count 0.53 10^3/uL (0.1-0.8); Absolute Neutrophil Count 2.64 10^3/uL (1.2-6.7); Basophils % 0.4; Eosinophils % 2.6; HCT 38.9 % (40.0-50.0); Immature Grans % 0.9; Lymphocytes % 27.5; MCH 35.1 pg (27.0-33.0); MCHC 33.4 % (32.0-36.0); MCV 105 fL (80-95); MPV 8.6 fL (8.0-11.0); Monocytes % 11.5; Neutrophils % 57.1; Platelet Count 177 10^3/uL (130-400); RDW 16.7 % (11.8-14.1); RDW-SD 65.6 fL; WBC 4.62 10^3/uL (4.4-10.8)
[2022-01-18 09:28] LABS: ALT 15 U/L (16-63); AST 12 U/L (15-37); Albumin 3.6 g/dL (3.4-5.0); Alkaline Phosphatase 84 U/L (46-116); Anion Gap -2.5 mmol/L (3-11); BUN 12 mg/dL (7-18); Bilirubin, Total 0.3 mg/dL (0.2-1.0); CO2 32.5 mmol/L (21.0-32.0); CREATININE 0.9 mg/dL (0.70-1.30); Calcium 8.9 mg/dL (8.5-10.1); Chloride 99 mmol/L (98-107); FREE T4 0.89 ng/dL (0.76-1.46); Glucose 113 mg/dL (74-106); Magnesium 1.6 mg/dL (1.8-2.4); Potassium 3.8 mmol/L (3.5-5.1); Sodium 129 mmol/L (136-145); TSH 8.87 uIU/mL (0.36-3.74); Total Protein 7.2 g/dL (6.4-8.2)
[2022-02-08 08:33] LABS: Abs Immature Grans 0.08 10^3/uL (0.0-0.06); Absolute Basophil Count 0.03 10^3/uL (0.0-0.2); Absolute Eosinophil Count 0.08 10^3/uL (0.0-0.7); Absolute Lymphocyte Count 1.13 10^3/uL (1.2-3.4); Absolute Monocyte Count 0.51 10^3/uL (0.1-0.8); Absolute Neutrophil Count 5.46 10^3/uL (1.2-6.7); Basophils % 0.4; Eosinophils % 1.1; HCT 41.3 % (40.0-50.0); HGB 13.6 g/dL (13.5-17.5); Immature Grans % 1.1; Lymphocytes % 15.5; MCH 35.7 pg (27.0-33.0); MCHC 32.9 % (32.0-36.0); MCV 108 fL (80-95); MPV 8.7 fL (8.0-11.0); Neutrophils % 74.9; Platelet Count 142 10^3/uL (130-400); RBC 3.81 10^6/uL (4.36-5.78); RDW 13.4 % (11.8-14.1); RDW-SD 54.9 fL; WBC 7.29 10^3/uL (4.4-10.8)
[2022-02-08 08:59] LABS: ALT 16 U/L (16-63); AST 11 U/L (15-37); Albumin 3.8 g/dL (3.4-5.0); Alkaline Phosphatase 85 U/L (46-116); BUN 15 mg/dL (7-18); Bilirubin, Total 0.4 mg/dL (0.2-1.0); CREATININE 0.9 mg/dL (0.70-1.30); Chloride 101 mmol/L (98-107); FREE T4 0.78 ng/dL (0.76-1.46); Glucose 119 mg/dL (74-106); Magnesium 1.8 mg/dL (1.8-2.4); Potassium 4.7 mmol/L (3.5-5.1); Sodium 138 mmol/L (136-145); Total Protein 7.2 g/dL (6.4-8.2)
[2022-02-08] MEDS: Normal Saline Flush 10 ML SYR IVP (10:46)
== END 2022-02-11 23:59 | disposition home or self-care (01) ==
LOC: INF 03:05
PROVIDERS: Internal Medicine Medical Oncology; PCP Nurse Practitioner Acute Care; Visit Provider Nurse Practitioner Adult Health
DX: C34.11 Malignant neoplasm of upper lobe, right bronchus or lung (principal); Z79.899 Other long term (current) drug therapy; E03.2 Hypothyroidism due to medicaments and other exogenous substances; Z45.2 Encounter for adjustment and management of vascular access device
CPT/HCPCS: 36591; 80053; 83735; 84439; 84443; 85025

== ENCOUNTER 2022-03-01 01:20 | Outpatient (RCR) | payer OTHER, SELFPAY ==
[2022-03-01 08:06] LABS: Abs Immature Grans 0.02 10^3/uL (0.0-0.06); Absolute Basophil Count 0.04 10^3/uL (0.0-0.2); Absolute Monocyte Count 0.46 10^3/uL (0.1-0.8); Absolute Neutrophil Count 2.61 10^3/uL (1.2-6.7); Basophils % 0.8; Eosinophils % 4.1; HCT 41.6 % (40.0-50.0); HGB 13.9 g/dL (13.5-17.5); Immature Grans % 0.4; Lymphocytes % 31.1; MCH 35.4 pg (27.0-33.0); MCHC 33.4 % (32.0-36.0); MCV 106 fL (80-95); MPV 8.9 fL (8.0-11.0); Monocytes % 9.5; Neutrophils % 54.1; Platelet Count 152 10^3/uL (130-400); RBC 3.93 10^6/uL (4.36-5.78); RDW 12.6 % (11.8-14.1); RDW-SD 49.5 fL; WBC 4.83 10^3/uL (4.4-10.8)
[2022-03-01 08:31] LABS: ALT 19 U/L (16-63); AST 12 U/L (15-37); Albumin 3.5 g/dL (3.4-5.0); Alkaline Phosphatase 77 U/L (46-116); Anion Gap 5.2 mmol/L (3-11); BUN 14 mg/dL (7-18); Bilirubin, Total 0.2 mg/dL (0.2-1.0); CO2 33.8 mmol/L (21.0-32.0); Calcium 8.7 mg/dL (8.5-10.1); Chloride 102 mmol/L (98-107); FREE T4 0.86 ng/dL (0.76-1.46); Glucose 108 mg/dL (74-106); Magnesium 1.9 mg/dL (1.8-2.4); Potassium 4.3 mmol/L (3.5-5.1); Sodium 141 mmol/L (136-145); TSH 12.08 uIU/mL (0.36-3.74)
[2022-03-01] MEDS: Normal Saline Flush 10 ML SYR IVP (08:44)
== END 2022-03-14 23:59 | disposition home or self-care (01) ==
LOC: INF 01:20
PROVIDERS: PCP Nurse Practitioner Acute Care; Visit Provider Nurse Practitioner Adult Health
DX: E03.2 Hypothyroidism due to medicaments and other exogenous substances (principal); Z79.899 Other long term (current) drug therapy; C34.11 Malignant neoplasm of upper lobe, right bronchus or lung; Z45.2 Encounter for adjustment and management of vascular access device
CPT/HCPCS: 36591; 80053; 83735; 84439; 84443; 85025

== ENCOUNTER 2022-04-12 02:49 | Outpatient (RCR) | payer OTHER, SELFPAY ==
[2022-03-24 07:51] LABS: Abs Immature Grans 0.04 10^3/uL (0.0-0.06); Absolute Basophil Count 0.04 10^3/uL (0.0-0.2); Absolute Eosinophil Count 0.31 10^3/uL (0.0-0.7); Absolute Lymphocyte Count 1.39 10^3/uL (1.2-3.4); Absolute Monocyte Count 0.59 10^3/uL (0.1-0.8); Absolute Neutrophil Count 3.65 10^3/uL (1.2-6.7); Basophils % 0.7; Eosinophils % 5.1; HCT 43.1 % (40.0-50.0); HGB 14.1 g/dL (13.5-17.5); Immature Grans % 0.7; Lymphocytes % 23.1; MCH 34.1 pg (27.0-33.0); MCHC 32.7 % (32.0-36.0); MCV 104 fL (80-95); MPV 8.4 fL (8.0-11.0); Monocytes % 9.8; Neutrophils % 60.6; Platelet Count 165 10^3/uL (130-400); RBC 4.13 10^6/uL (4.36-5.78); RDW 12.3 % (11.8-14.1); RDW-SD 47.8 fL; WBC 6.02 10^3/uL (4.4-10.8)
[2022-03-24] MEDS: Normal Saline Flush 10 ML SYR IVP (07:51)
[2022-03-24 08:11] LABS: ALT 20 U/L (16-63); AST 13 U/L (15-37); Albumin 3.6 g/dL (3.4-5.0); Alkaline Phosphatase 79 U/L (46-116); Anion Gap 3.2 mmol/L (3-11); BUN 12 mg/dL (7-18); Bilirubin, Total 0.3 mg/dL (0.2-1.0); CO2 35.8 mmol/L (21.0-32.0); Calcium 8.8 mg/dL (8.5-10.1); Chloride 101 mmol/L (98-107); FREE T4 0.79 ng/dL (0.76-1.46); Glucose 112 mg/dL (74-106); Magnesium 1.7 mg/dL (1.8-2.4); Potassium 4.6 mmol/L (3.5-5.1); Sodium 140 mmol/L (136-145); TSH 15.51 uIU/mL (0.36-3.74); Total Protein 7.2 g/dL (6.4-8.2)
[2022-04-12] MEDS: Normal Saline Flush 10 ML SYR IVP (07:17)
[2022-04-12 07:47] LABS: Abs Immature Grans 0.02 10^3/uL (0.0-0.06); Absolute Basophil Count 0.03 10^3/uL (0.0-0.2); Absolute Eosinophil Count 0.31 10^3/uL (0.0-0.7); Absolute Lymphocyte Count 1.49 10^3/uL (1.2-3.4); Absolute Neutrophil Count 3.46 10^3/uL (1.2-6.7); Basophils % 0.5; Eosinophils % 5.3; HCT 42.2 % (40.0-50.0); HGB 14.3 g/dL (13.5-17.5); Immature Grans % 0.3; Lymphocytes % 25.6; MCH 33.4 pg (27.0-33.0); MCHC 33.9 % (32.0-36.0); MCV 99 fL (80-95); MPV 8.6 fL (8.0-11.0); Monocytes % 8.6; Neutrophils % 59.7; Platelet Count 183 10^3/uL (130-400); RBC 4.28 10^6/uL (4.36-5.78); RDW 12.5 % (11.8-14.1); RDW-SD 45.1 fL; WBC 5.81 10^3/uL (4.4-10.8)
[2022-04-12 08:13] LABS: ALT 20 U/L (16-63); AST 11 U/L (15-37); Albumin 3.6 g/dL (3.4-5.0); Alkaline Phosphatase 85 U/L (46-116); Anion Gap 3.6 mmol/L (3-11); BUN 17 mg/dL (7-18); Bilirubin, Total 0.3 mg/dL (0.2-1.0); CO2 35.4 mmol/L (21.0-32.0); Calcium 8.6 mg/dL (8.5-10.1); Chloride 100 mmol/L (98-107); FREE T4 1.08 ng/dL (0.76-1.46); Glucose 113 mg/dL (74-106); Magnesium 1.8 mg/dL (1.8-2.4); Potassium 4.3 mmol/L (3.5-5.1); Sodium 139 mmol/L (136-145); Total Protein 7.2 g/dL (6.4-8.2)
== END 2022-04-14 23:59 | disposition home or self-care (01) ==
LOC: INF 02:49
PROVIDERS: PCP Nurse Practitioner Acute Care; Visit Provider Nurse Practitioner Adult Health
DX: C34.11 Malignant neoplasm of upper lobe, right bronchus or lung (principal); E03.2 Hypothyroidism due to medicaments and other exogenous substances; Z45.2 Encounter for adjustment and management of vascular access device; Z79.899 Other long term (current) drug therapy
CPT/HCPCS: 36591; 80053; 83735; 84439; 84443; 85025

== ENCOUNTER 2022-05-03 03:11 | Outpatient (RCR) | payer OTHER, SELFPAY ==
[2022-05-03] MEDS: Normal Saline Flush 10 ML SYR IVP (07:46)
[2022-05-03 07:49] LABS: Abs Immature Grans 0.02 10^3/uL (0.0-0.06); Absolute Basophil Count 0.03 10^3/uL (0.0-0.2); Absolute Eosinophil Count 0.24 10^3/uL (0.0-0.7); Absolute Lymphocyte Count 1.26 10^3/uL (1.2-3.4); Absolute Monocyte Count 0.52 10^3/uL (0.1-0.8); Absolute Neutrophil Count 3.06 10^3/uL (1.2-6.7); Basophils % 0.6; Eosinophils % 4.7; HCT 44.2 % (40.0-50.0); HGB 14.3 g/dL (13.5-17.5); Immature Grans % 0.4; Lymphocytes % 24.6; MCH 32.9 pg (27.0-33.0); MCHC 32.4 % (32.0-36.0); MCV 102 fL (80-95); MPV 8.3 fL (8.0-11.0); Monocytes % 10.1; Neutrophils % 59.6; Platelet Count 155 10^3/uL (130-400); RBC 4.35 10^6/uL (4.36-5.78); RDW 13.4 % (11.8-14.1); RDW-SD 50.2 fL; WBC 5.13 10^3/uL (4.4-10.8)
[2022-05-03 08:18] LABS: ALT 16 U/L (16-63); AST 11 U/L (15-37); Albumin 3.5 g/dL (3.4-5.0); Alkaline Phosphatase 86 U/L (46-116); Anion Gap 3.4 mmol/L (3-11); BUN 10 mg/dL (7-18); Bilirubin, Total 0.4 mg/dL (0.2-1.0); CO2 35.6 mmol/L (21.0-32.0); Calcium 8.6 mg/dL (8.5-10.1); Chloride 101 mmol/L (98-107); Estimated GFR 83.01 (mL/min/1.73m2); Glucose 116 mg/dL (74-106); Magnesium 1.9 mg/dL (1.8-2.4); Potassium 4.4 mmol/L (3.5-5.1); Sodium 140 mmol/L (136-145); TSH 4.26 uIU/mL (0.36-3.74); Total Protein 6.9 g/dL (6.4-8.2)
[2022-05-03 09:47] LABS: FREE T4 0.96 ng/dL (0.76-1.46)
== END 2022-05-14 23:59 | disposition home or self-care (01) ==
LOC: INF 03:11
PROVIDERS: PCP Nurse Practitioner Acute Care; Visit Provider Nurse Practitioner Adult Health
DX: C34.11 Malignant neoplasm of upper lobe, right bronchus or lung (principal); E03.2 Hypothyroidism due to medicaments and other exogenous substances; Z45.2 Encounter for adjustment and management of vascular access device
CPT/HCPCS: 36591; 80053; 83735; 84439; 84443; 85025

== ENCOUNTER 2022-06-14 02:35 | Outpatient (RCR) | payer OTHER, SELFPAY ==
[2022-05-24 08:08] LABS: Abs Immature Grans 0.02 10^3/uL (0.0-0.06); Absolute Basophil Count 0.03 10^3/uL (0.0-0.2); Absolute Eosinophil Count 0.21 10^3/uL (0.0-0.7); Absolute Lymphocyte Count 1.24 10^3/uL (1.2-3.4); Absolute Monocyte Count 0.52 10^3/uL (0.1-0.8); Absolute Neutrophil Count 2.98 10^3/uL (1.2-6.7); Basophils % 0.6; Eosinophils % 4.2; HCT 47.1 % (40.0-50.0); HGB 15.2 g/dL (13.5-17.5); Immature Grans % 0.4; Lymphocytes % 24.8; MCH 32.6 pg (27.0-33.0); MCHC 32.3 % (32.0-36.0); MCV 101 fL (80-95); MPV 8.9 fL (8.0-11.0); Monocytes % 10.4; Neutrophils % 59.6; Platelet Count 157 10^3/uL (130-400); RBC 4.66 10^6/uL (4.36-5.78); RDW 14.2 % (11.8-14.1); RDW-SD 52.8 fL
[2022-05-24] MEDS: Normal Saline Flush 10 ML SYR IVP (08:11)
[2022-05-24 08:33] LABS: ALT 16 U/L (16-63); AST 12 U/L (15-37); Albumin 3.5 g/dL (3.4-5.0); Alkaline Phosphatase 86 U/L (46-116); Anion Gap 1.7 mmol/L (3-11); BUN 11 mg/dL (7-18); Bilirubin, Total 0.4 mg/dL (0.2-1.0); CO2 35.3 mmol/L (21.0-32.0); Calcium 8.6 mg/dL (8.5-10.1); Chloride 103 mmol/L (98-107); Estimated GFR 83.01 (mL/min/1.73m2); FREE T4 0.85 ng/dL (0.76-1.46); Glucose 105 mg/dL (74-106); Magnesium 1.7 mg/dL (1.8-2.4); Potassium 4.5 mmol/L (3.5-5.1); Sodium 140 mmol/L (136-145); TSH 12.68 uIU/mL (0.36-3.74)
[2022-06-14] MEDS: Normal Saline Flush 10 ML SYR IVP (07:34)
[2022-06-14 07:51] LABS: Abs Immature Grans 0.03 10^3/uL (0.0-0.06); Absolute Basophil Count 0.03 10^3/uL (0.0-0.2); Absolute Eosinophil Count 0.45 10^3/uL (0.0-0.7); Absolute Lymphocyte Count 1.27 10^3/uL (1.2-3.4); Absolute Monocyte Count 0.54 10^3/uL (0.1-0.8); Absolute Neutrophil Count 2.91 10^3/uL (1.2-6.7); Basophils % 0.6; Eosinophils % 8.6; HCT 45.8 % (40.0-50.0); HGB 14.9 g/dL (13.5-17.5); Immature Grans % 0.6; Lymphocytes % 24.3; MCH 32.3 pg (27.0-33.0); MCHC 32.5 % (32.0-36.0); MCV 99 fL (80-95); MPV 8.7 fL (8.0-11.0); Monocytes % 10.3; Neutrophils % 55.6; Platelet Count 150 10^3/uL (130-400); RBC 4.61 10^6/uL (4.36-5.78); RDW 13.1 % (11.8-14.1); RDW-SD 48.2 fL; WBC 5.23 10^3/uL (4.4-10.8)
[2022-06-14 08:14] LABS: ALT 14 U/L (16-63); AST 10 U/L (15-37); Albumin 3.6 g/dL (3.4-5.0); Alkaline Phosphatase 91 U/L (46-116); Anion Gap 1.8 mmol/L (3-11); BUN 12 mg/dL (7-18); Bilirubin, Total 0.4 mg/dL (0.2-1.0); CO2 35.2 mmol/L (21.0-32.0); CREATININE 0.9 mg/dL (0.70-1.30); Calcium 8.8 mg/dL (8.5-10.1); Chloride 103 mmol/L (98-107); Estimated GFR 94.19 (mL/min/1.73m2); FREE T4 1.23 ng/dL (0.76-1.46); Glucose 105 mg/dL (74-106); Magnesium 1.9 mg/dL (1.8-2.4); Potassium 4.5 mmol/L (3.5-5.1); Sodium 140 mmol/L (136-145); TSH 1.03 uIU/mL (0.36-3.74); Total Protein 7.1 g/dL (6.4-8.2)
== END 2022-06-14 23:59 | disposition home or self-care (01) ==
LOC: INF 02:35
PROVIDERS: Internal Medicine Medical Oncology; PCP Nurse Practitioner Acute Care; Visit Provider Nurse Practitioner Adult Health
DX: E03.2 Hypothyroidism due to medicaments and other exogenous substances (principal); Z45.2 Encounter for adjustment and management of vascular access device
CPT/HCPCS: 36591; 80053; 83735; 84439; 84443; 85025

== ENCOUNTER 2022-07-05 02:27 | Outpatient (RCR) | payer OTHER, SELFPAY ==
[2022-07-05] MEDS: Normal Saline Flush 10 ML SYR IVP (07:44)
[2022-07-05 07:55] LABS: Abs Immature Grans 0.01 10^3/uL (0.0-0.06); Absolute Basophil Count 0.03 10^3/uL (0.0-0.2); Absolute Lymphocyte Count 1.28 10^3/uL (1.2-3.4); Absolute Monocyte Count 0.47 10^3/uL (0.1-0.8); Absolute Neutrophil Count 4.18 10^3/uL (1.2-6.7); Basophils % 0.5; Eosinophils % 4.8; HCT 41.5 % (40.0-50.0); HGB 13.6 g/dL (13.5-17.5); Immature Grans % 0.2; Lymphocytes % 20.4; MCH 28.9 pg (27.0-33.0); MCHC 32.8 % (32.0-36.0); MCV 88 fL (80-95); MPV 9.7 fL (8.0-11.0); Monocytes % 7.5; Neutrophils % 66.6; Platelet Count 193 10^3/uL (130-400); RDW 14.6 % (11.8-14.1); RDW-SD 47.7 fL; WBC 6.27 10^3/uL (4.4-10.8)
[2022-07-05 08:20] LABS: ALT 70 U/L (16-63); AST 73 U/L (15-37); Albumin 3.6 g/dL (3.4-5.0); Alkaline Phosphatase 100 U/L (46-116); Anion Gap 8.1 mmol/L (3-11); BUN 10 mg/dL (7-18); Bilirubin, Total 0.4 mg/dL (0.2-1.0); CO2 27.9 mmol/L (21.0-32.0); CREATININE 0.9 mg/dL (0.70-1.30); Calcium 8.8 mg/dL (8.5-10.1); Chloride 103 mmol/L (98-107); Estimated GFR 94.19 (mL/min/1.73m2); FREE T4 0.96 ng/dL (0.76-1.46); Glucose 106 mg/dL (74-106); Magnesium 1.9 mg/dL (1.8-2.4); Potassium 3.7 mmol/L (3.5-5.1); Sodium 139 mmol/L (136-145); Total Protein 8.1 g/dL (6.4-8.2)
== END 2022-07-14 23:59 | disposition home or self-care (01) ==
LOC: INF 02:27
PROVIDERS: PCP Nurse Practitioner Acute Care; Visit Provider Nurse Practitioner Adult Health
DX: C34.11 Malignant neoplasm of upper lobe, right bronchus or lung (principal); E03.2 Hypothyroidism due to medicaments and other exogenous substances; Z45.2 Encounter for adjustment and management of vascular access device
CPT/HCPCS: 36591; 80053; 83735; 84439; 84443; 85025

== ENCOUNTER 2022-07-26 02:59 | Outpatient (RCR) | payer OTHER, SELFPAY ==
[2022-07-26] MEDS: Normal Saline Flush 10 ML SYR IVP (07:43)
[2022-07-26 08:02] LABS: Abs Immature Grans 0.02 10^3/uL (0.0-0.06); Absolute Basophil Count 0.02 10^3/uL (0.0-0.2); Absolute Eosinophil Count 0.32 10^3/uL (0.0-0.7); Absolute Lymphocyte Count 1.34 10^3/uL (1.2-3.4); Absolute Monocyte Count 0.55 10^3/uL (0.1-0.8); Absolute Neutrophil Count 3.75 10^3/uL (1.2-6.7); Basophils % 0.3; Eosinophils % 5.3; HCT 47.1 % (40.0-50.0); HGB 15.4 g/dL (13.5-17.5); Immature Grans % 0.3; Lymphocytes % 22.3; MCH 32.4 pg (27.0-33.0); MCHC 32.7 % (32.0-36.0); MCV 99 fL (80-95); MPV 8.7 fL (8.0-11.0); Monocytes % 9.2; Neutrophils % 62.6; Platelet Count 174 10^3/uL (130-400); RBC 4.75 10^6/uL (4.36-5.78); RDW-SD 47.7 fL
[2022-07-26 08:31] LABS: ALT 16 U/L (16-63); AST 10 U/L (15-37); Albumin 3.6 g/dL (3.4-5.0); Alkaline Phosphatase 94 U/L (46-116); Anion Gap 3.9 mmol/L (3-11); BUN 11 mg/dL (7-18); Bilirubin, Total 0.4 mg/dL (0.2-1.0); CO2 35.1 mmol/L (21.0-32.0); Calcium 8.7 mg/dL (8.5-10.1); Chloride 100 mmol/L (98-107); Estimated GFR 83.01 (mL/min/1.73m2); Glucose 109 mg/dL (74-106); Magnesium 1.8 mg/dL (1.8-2.4); Potassium 4.6 mmol/L (3.5-5.1); Sodium 139 mmol/L (136-145); TSH 0.48 uIU/mL (0.36-3.74); Total Protein 7.2 g/dL (6.4-8.2)
== END 2022-08-14 23:59 | disposition home or self-care (01) ==
LOC: INF 02:59
PROVIDERS: PCP Nurse Practitioner Acute Care; Visit Provider Nurse Practitioner Adult Health
DX: C34.11 Malignant neoplasm of upper lobe, right bronchus or lung (principal); E03.2 Hypothyroidism due to medicaments and other exogenous substances; Z45.2 Encounter for adjustment and management of vascular access device
CPT/HCPCS: 36591; 80053; 83735; 84439; 84443; 85025

== ENCOUNTER 2022-09-06 02:12 | Outpatient (RCR) | payer OTHER, SELFPAY ==
[2022-08-18] MEDS: Normal Saline Flush 10 ML SYR IVP (07:51)
[2022-08-18 08:12] LABS: Abs Immature Grans 0.02 10^3/uL (0.0-0.06); Absolute Basophil Count 0.03 10^3/uL (0.0-0.2); Absolute Eosinophil Count 0.23 10^3/uL (0.0-0.7); Absolute Lymphocyte Count 1.44 10^3/uL (1.2-3.4); Absolute Monocyte Count 0.62 10^3/uL (0.1-0.8); Absolute Neutrophil Count 3.74 10^3/uL (1.2-6.7); Basophils % 0.5; Eosinophils % 3.8; HGB 15.5 g/dL (13.5-17.5); Immature Grans % 0.3; Lymphocytes % 23.7; MCV 97 fL (80-95); MPV 8.9 fL (8.0-11.0); Monocytes % 10.2; Neutrophils % 61.5; Platelet Count 183 10^3/uL (130-400); RBC 4.84 10^6/uL (4.36-5.78); RDW-SD 45.9 fL; WBC 6.08 10^3/uL (4.4-10.8)
[2022-08-18 08:36] LABS: ALT 16 U/L (16-63); AST 12 U/L (15-37); Albumin 3.6 g/dL (3.4-5.0); Alkaline Phosphatase 91 U/L (46-116); Anion Gap 3.7 mmol/L (3-11); BUN 20 mg/dL (7-18); Bilirubin, Total 0.5 mg/dL (0.2-1.0); CO2 33.3 mmol/L (21.0-32.0); Chloride 102 mmol/L (98-107); Estimated GFR 83.01 (mL/min/1.73m2); Glucose 115 mg/dL (74-106); Magnesium 1.9 mg/dL (1.8-2.4); Potassium 4.3 mmol/L (3.5-5.1); Sodium 139 mmol/L (136-145); TSH 0.41 uIU/mL (0.36-3.74); Total Protein 7.3 g/dL (6.4-8.2)
[2022-09-06] MEDS: Normal Saline Flush 10 ML SYR IVP (07:48)
[2022-09-06 08:01] LABS: Abs Immature Grans 0.02 10^3/uL (0.0-0.06); Absolute Basophil Count 0.03 10^3/uL (0.0-0.2); Absolute Eosinophil Count 0.26 10^3/uL (0.0-0.7); Absolute Lymphocyte Count 1.48 10^3/uL (1.2-3.4); Absolute Monocyte Count 0.61 10^3/uL (0.1-0.8); Absolute Neutrophil Count 4.15 10^3/uL (1.2-6.7); Basophils % 0.5; HCT 48.6 % (40.0-50.0); HGB 15.9 g/dL (13.5-17.5); Immature Grans % 0.3; Lymphocytes % 22.6; MCH 32.5 pg (27.0-33.0); MCHC 32.7 % (32.0-36.0); MCV 99 fL (80-95); MPV 8.5 fL (8.0-11.0); Monocytes % 9.3; Neutrophils % 63.3; Platelet Count 177 10^3/uL (130-400); RBC 4.89 10^6/uL (4.36-5.78); RDW 13.6 % (11.8-14.1); RDW-SD 50.1 fL; WBC 6.55 10^3/uL (4.4-10.8)
[2022-09-06 09:02] LABS: ALT 19 U/L (16-63); AST 13 U/L (15-37); Albumin 3.7 g/dL (3.4-5.0); Alkaline Phosphatase 89 U/L (46-116); Anion Gap 5.3 mmol/L (3-11); BUN 14 mg/dL (7-18); Bilirubin, Total 0.3 mg/dL (0.2-1.0); CO2 31.7 mmol/L (21.0-32.0); Calcium 8.8 mg/dL (8.5-10.1); Chloride 104 mmol/L (98-107); Estimated GFR 83.01 (mL/min/1.73m2); FREE T4 1.12 ng/dL (0.76-1.46); Glucose 108 mg/dL (74-106); Magnesium 1.9 mg/dL (1.8-2.4); Potassium 4.8 mmol/L (3.5-5.1); Sodium 141 mmol/L (136-145); TSH 0.32 uIU/mL (0.36-3.74); Total Protein 7.1 g/dL (6.4-8.2)
== END 2022-09-14 23:59 | disposition home or self-care (01) ==
LOC: INF 02:12
PROVIDERS: Internal Medicine Medical Oncology; PCP Nurse Practitioner Acute Care; Visit Provider Nurse Practitioner Adult Health
DX: C34.11 Malignant neoplasm of upper lobe, right bronchus or lung (principal); E03.2 Hypothyroidism due to medicaments and other exogenous substances; Z45.2 Encounter for adjustment and management of vascular access device; Z79.899 Other long term (current) drug therapy
CPT/HCPCS: 36591; 80053; 83735; 84439; 84443; 85025

== ENCOUNTER 2022-09-27 00:43 | Outpatient (RCR) | payer OTHER, SELFPAY ==
[2022-09-27] MEDS: Normal Saline Flush 10 ML SYR IVP (07:17)
[2022-09-27 07:26] LABS: Abs Immature Grans 0.02 10^3/uL (0.0-0.06); Absolute Basophil Count 0.02 10^3/uL (0.0-0.2); Absolute Eosinophil Count 0.23 10^3/uL (0.0-0.7); Absolute Lymphocyte Count 1.33 10^3/uL (1.2-3.4); Absolute Monocyte Count 0.52 10^3/uL (0.1-0.8); Absolute Neutrophil Count 3.57 10^3/uL (1.2-6.7); Basophils % 0.4; HCT 49.1 % (40.0-50.0); Immature Grans % 0.4; Lymphocytes % 23.4; MCH 32.2 pg (27.0-33.0); MCHC 32.6 % (32.0-36.0); MCV 99 fL (80-95); MPV 8.6 fL (8.0-11.0); Monocytes % 9.1; Neutrophils % 62.7; Platelet Count 182 10^3/uL (130-400); RBC 4.97 10^6/uL (4.36-5.78); RDW 13.4 % (11.8-14.1); RDW-SD 49.1 fL; WBC 5.69 10^3/uL (4.4-10.8)
[2022-09-27 07:59] LABS: ALT 12 U/L (16-63); AST 12 U/L (15-37); Albumin 3.5 g/dL (3.4-5.0); Alkaline Phosphatase 87 U/L (46-116); BUN 11 mg/dL (7-18); Bilirubin, Total 0.4 mg/dL (0.2-1.0); CREATININE 0.8 mg/dL (0.70-1.30); Calcium 8.7 mg/dL (8.5-10.1); Chloride 103 mmol/L (98-107); Estimated GFR 97.61 (mL/min/1.73m2); FREE T4 0.97 ng/dL (0.76-1.46); Glucose 111 mg/dL (74-106); Magnesium 1.9 mg/dL (1.8-2.4); Potassium 4.4 mmol/L (3.5-5.1); Sodium 140 mmol/L (136-145); Total Protein 6.9 g/dL (6.4-8.2)
== END 2022-10-12 23:59 | disposition home or self-care (01) ==
LOC: INF 00:43
PROVIDERS: PCP Nurse Practitioner Acute Care; Visit Provider Nurse Practitioner Adult Health
DX: C34.11 Malignant neoplasm of upper lobe, right bronchus or lung (principal); E03.2 Hypothyroidism due to medicaments and other exogenous substances; Z45.2 Encounter for adjustment and management of vascular access device
CPT/HCPCS: 36591; 80053; 83735; 84439; 84443; 85025

== ENCOUNTER 2022-11-08 02:09 | Outpatient (RCR) | payer OTHER, SELFPAY ==
[2022-10-18] MEDS: Normal Saline Flush 10 ML SYR IVP (07:44)
[2022-10-18 08:12] LABS: Abs Immature Grans 0.03 10^3/uL (0.0-0.06); Absolute Basophil Count 0.03 10^3/uL (0.0-0.2); Absolute Eosinophil Count 0.19 10^3/uL (0.0-0.7); Absolute Lymphocyte Count 1.46 10^3/uL (1.2-3.4); Absolute Monocyte Count 0.58 10^3/uL (0.1-0.8); Absolute Neutrophil Count 4.48 10^3/uL (1.2-6.7); Basophils % 0.4; Eosinophils % 2.8; HCT 48.3 % (40.0-50.0); HGB 15.9 g/dL (13.5-17.5); Immature Grans % 0.4; Lymphocytes % 21.6; MCH 32.5 pg (27.0-33.0); MCHC 32.9 % (32.0-36.0); MCV 99 fL (80-95); MPV 8.9 fL (8.0-11.0); Monocytes % 8.6; Neutrophils % 66.2; Platelet Count 175 10^3/uL (130-400); RBC 4.89 10^6/uL (4.36-5.78); RDW 13.2 % (11.8-14.1); RDW-SD 47.9 fL; WBC 6.77 10^3/uL (4.4-10.8)
[2022-10-18 08:38] LABS: ALT 17 U/L (16-63); AST 7 U/L (15-37); Albumin 3.6 g/dL (3.4-5.0); Alkaline Phosphatase 91 U/L (46-116); Anion Gap 4.9 mmol/L (3-11); BUN 16 mg/dL (7-18); Bilirubin, Total 0.3 mg/dL (0.2-1.0); CO2 35.1 mmol/L (21.0-32.0); CREATININE 0.9 mg/dL (0.70-1.30); Calcium 8.9 mg/dL (8.5-10.1); Chloride 102 mmol/L (98-107); Estimated GFR 94.19 (mL/min/1.73m2); FREE T4 1.14 ng/dL (0.76-1.46); Glucose 107 mg/dL (74-106); Magnesium 1.9 mg/dL (1.8-2.4); Potassium 4.6 mmol/L (3.5-5.1); Sodium 142 mmol/L (136-145); TSH 0.42 uIU/mL (0.36-3.74)
[2022-11-08] MEDS: Normal Saline Flush 10 ML SYR IVP (07:45)
[2022-11-08 08:18] LABS: Abs Immature Grans 0.01 10^3/uL (0.0-0.06); Absolute Basophil Count 0.02 10^3/uL (0.0-0.2); Absolute Eosinophil Count 0.27 10^3/uL (0.0-0.7); Absolute Lymphocyte Count 1.36 10^3/uL (1.2-3.4); Absolute Monocyte Count 0.47 10^3/uL (0.1-0.8); Absolute Neutrophil Count 2.22 10^3/uL (1.2-6.7); Basophils % 0.5; Eosinophils % 6.2; HCT 48.4 % (40.0-50.0); HGB 16.4 g/dL (13.5-17.5); Immature Grans % 0.2; Lymphocytes % 31.3; MCH 32.8 pg (27.0-33.0); MCHC 33.9 % (32.0-36.0); MCV 97 fL (80-95); MPV 8.5 fL (8.0-11.0); Monocytes % 10.8; Platelet Count 166 10^3/uL (130-400); RDW 13.3 % (11.8-14.1); RDW-SD 47.7 fL; WBC 4.35 10^3/uL (4.4-10.8)
[2022-11-08 08:51] LABS: ALT 46 U/L (16-63); AST 23 U/L (15-37); Albumin 3.4 g/dL (3.4-5.0); Alkaline Phosphatase 94 U/L (46-116); Anion Gap 4.6 mmol/L (3-11); BUN 11 mg/dL (7-18); Bilirubin, Total 0.3 mg/dL (0.2-1.0); CO2 33.4 mmol/L (21.0-32.0); CREATININE 0.9 mg/dL (0.70-1.30); Calcium 8.6 mg/dL (8.5-10.1); Chloride 102 mmol/L (98-107); Estimated GFR 94.19 (mL/min/1.73m2); FREE T4 1.37 ng/dL (0.76-1.46); Glucose 118 mg/dL (74-106); Magnesium 1.8 mg/dL (1.8-2.4); Potassium 4.6 mmol/L (3.5-5.1); Sodium 140 mmol/L (136-145); TSH 1.28 uIU/mL (0.36-3.74); Total Protein 6.9 g/dL (6.4-8.2)
== END 2022-11-12 23:59 | disposition home or self-care (01) ==
LOC: INF 02:09
PROVIDERS: PCP Nurse Practitioner Acute Care; Visit Provider Nurse Practitioner Adult Health
DX: C34.11 Malignant neoplasm of upper lobe, right bronchus or lung (principal); Z45.2 Encounter for adjustment and management of vascular access device; Z79.899 Other long term (current) drug therapy
CPT/HCPCS: 36591; 80053; 83735; 84439; 84443; 85025

== ENCOUNTER 2022-11-29 01:39 | Outpatient (RCR) | payer OTHER, SELFPAY ==
[2022-11-29] MEDS: Normal Saline Flush 10 ML SYR IVP (07:53)
[2022-11-29 08:02] LABS: Abs Immature Grans 0.03 10^3/uL (0.0-0.06); Absolute Basophil Count 0.04 10^3/uL (0.0-0.2); Absolute Monocyte Count 0.67 10^3/uL (0.1-0.8); Absolute Neutrophil Count 3.84 10^3/uL (1.2-6.7); Basophils % 0.6; Eosinophils % 4.8; HCT 46.7 % (40.0-50.0); HGB 15.6 g/dL (13.5-17.5); Immature Grans % 0.5; Lymphocytes % 22.3; MCH 32.7 pg (27.0-33.0); MCHC 33.4 % (32.0-36.0); MCV 98 fL (80-95); MPV 8.6 fL (8.0-11.0); Monocytes % 10.7; Neutrophils % 61.1; Platelet Count 200 10^3/uL (130-400); RBC 4.77 10^6/uL (4.36-5.78); RDW 13.2 % (11.8-14.1); RDW-SD 47.8 fL; WBC 6.28 10^3/uL (4.4-10.8)
[2022-11-29 08:30] LABS: ALT 20 U/L (16-63); AST 14 U/L (15-37); Albumin 3.4 g/dL (3.4-5.0); Alkaline Phosphatase 98 U/L (46-116); Anion Gap 3.8 mmol/L (3-11); BUN 6 mg/dL (7-18); Bilirubin, Total 0.6 mg/dL (0.2-1.0); CO2 35.2 mmol/L (21.0-32.0); CREATININE 0.9 mg/dL (0.70-1.30); Calcium 8.9 mg/dL (8.5-10.1); Chloride 101 mmol/L (98-107); Estimated GFR 94.19 (mL/min/1.73m2); FREE T4 1.29 ng/dL (0.76-1.46); Glucose 108 mg/dL (74-106); Magnesium 1.9 mg/dL (1.8-2.4); Potassium 4.5 mmol/L (3.5-5.1); Sodium 140 mmol/L (136-145); TSH 0.75 uIU/mL (0.36-3.74); Total Protein 7.1 g/dL (6.4-8.2)
== END 2022-12-12 23:59 | disposition home or self-care (01) ==
LOC: INF 01:39
PROVIDERS: PCP Internal Medicine; Visit Provider Nurse Practitioner Adult Health
DX: C34.11 Malignant neoplasm of upper lobe, right bronchus or lung (principal); Z45.2 Encounter for adjustment and management of vascular access device; Z79.899 Other long term (current) drug therapy
CPT/HCPCS: 36591; 80053; 83735; 84439; 84443; 85025

== ENCOUNTER 2023-01-12 03:21 | Outpatient (RCR) | payer OTHER, SELFPAY ==
[2022-12-20] MEDS: Normal Saline Flush 10 ML SYR IVP (07:47)
[2022-12-20 08:39] LABS: Abs Immature Grans 0.04 10^3/uL (0.0-0.06); Absolute Basophil Count 0.04 10^3/uL (0.0-0.2); Absolute Eosinophil Count 0.28 10^3/uL (0.0-0.7); Absolute Lymphocyte Count 1.28 10^3/uL (1.2-3.4); Absolute Monocyte Count 0.61 10^3/uL (0.1-0.8); Absolute Neutrophil Count 3.42 10^3/uL (1.2-6.7); Basophils % 0.7; Eosinophils % 4.9; HCT 47.1 % (40.0-50.0); HGB 15.7 g/dL (13.5-17.5); Immature Grans % 0.7; Lymphocytes % 22.6; MCH 32.8 pg (27.0-33.0); MCHC 33.3 % (32.0-36.0); MCV 98 fL (80-95); Monocytes % 10.8; Neutrophils % 60.3; Platelet Count 199 10^3/uL (130-400); RBC 4.79 10^6/uL (4.36-5.78); RDW 13.1 % (11.8-14.1); RDW-SD 47.3 fL; WBC 5.67 10^3/uL (4.4-10.8)
[2022-12-20 09:04] LABS: ALT 19 U/L (16-63); AST 9 U/L (15-37); Albumin 3.3 g/dL (3.4-5.0); Alkaline Phosphatase 100 U/L (46-116); Anion Gap 3.4 mmol/L (3-11); BUN 8 mg/dL (7-18); Bilirubin, Total 0.3 mg/dL (0.2-1.0); CO2 34.6 mmol/L (21.0-32.0); CREATININE 0.9 mg/dL (0.70-1.30); Calcium 8.8 mg/dL (8.5-10.1); Chloride 102 mmol/L (98-107); Estimated GFR 94.19 (mL/min/1.73m2); FREE T4 1.27 ng/dL (0.76-1.46); Glucose 103 mg/dL (74-106); Magnesium 1.9 mg/dL (1.8-2.4); Potassium 4.4 mmol/L (3.5-5.1); Sodium 140 mmol/L (136-145); TSH 0.31 uIU/mL (0.36-3.74); Total Protein 6.9 g/dL (6.4-8.2)
[2023-01-12] MEDS: Normal Saline Flush 10 ML SYR IVP (07:44)
[2023-01-12 08:03] LABS: Abs Immature Grans 0.04 10^3/uL (0.0-0.06); Absolute Basophil Count 0.04 10^3/uL (0.0-0.2); Absolute Eosinophil Count 0.36 10^3/uL (0.0-0.7); Absolute Lymphocyte Count 1.37 10^3/uL (1.2-3.4); Absolute Monocyte Count 0.65 10^3/uL (0.1-0.8); Basophils % 0.6; Eosinophils % 5.8; HCT 47.7 % (40.0-50.0); HGB 15.5 g/dL (13.5-17.5); Immature Grans % 0.6; Lymphocytes % 21.9; MCH 32.4 pg (27.0-33.0); MCHC 32.5 % (32.0-36.0); MCV 100 fL (80-95); MPV 8.7 fL (8.0-11.0); Monocytes % 10.4; Neutrophils % 60.7; Platelet Count 185 10^3/uL (130-400); RBC 4.79 10^6/uL (4.36-5.78); RDW 12.8 % (11.8-14.1); RDW-SD 47.4 fL; WBC 6.26 10^3/uL (4.4-10.8)
[2023-01-12 08:50] LABS: ALT 18 U/L (16-63); AST 8 U/L (15-37); Albumin 3.2 g/dL (3.4-5.0); Alkaline Phosphatase 108 U/L (46-116); Anion Gap 4.5 mmol/L (3-11); BUN 9 mg/dL (7-18); Bilirubin, Total 0.2 mg/dL (0.2-1.0); CO2 33.5 mmol/L (21.0-32.0); CREATININE 0.9 mg/dL (0.70-1.30); Calcium 8.5 mg/dL (8.5-10.1); Chloride 104 mmol/L (98-107); Estimated GFR 93.61 (mL/min/1.73m2); FREE T4 1.02 ng/dL (0.76-1.46); Glucose 116 mg/dL (74-106); Magnesium 1.8 mg/dL (1.8-2.4); Potassium 4.3 mmol/L (3.5-5.1); Sodium 142 mmol/L (136-145); TSH 0.23 uIU/mL (0.36-3.74); Total Protein 6.8 g/dL (6.4-8.2)
== END 2023-01-12 23:59 | disposition home or self-care (01) ==
LOC: INF 03:21
PROVIDERS: Nurse Practitioner Family; PCP Internal Medicine; Visit Provider Nurse Practitioner Adult Health
DX: Z79.899 Other long term (current) drug therapy (principal); C34.11 Malignant neoplasm of upper lobe, right bronchus or lung; Z45.2 Encounter for adjustment and management of vascular access device
CPT/HCPCS: 36591; 80053; 83735; 84439; 84443; 85025

== ENCOUNTER 2023-02-07 02:51 | Outpatient (RCR) | payer OTHER, SELFPAY ==
[2023-02-07] MEDS: Normal Saline Flush 10 ML SYR IVP (07:47)
[2023-02-07 08:00] LABS: Abs Immature Grans 0.03 10^3/uL (0.0-0.06); Absolute Basophil Count 0.03 10^3/uL (0.0-0.2); Absolute Eosinophil Count 0.31 10^3/uL (0.0-0.7); Absolute Lymphocyte Count 1.15 10^3/uL (1.2-3.4); Absolute Monocyte Count 0.56 10^3/uL (0.1-0.8); Absolute Neutrophil Count 3.32 10^3/uL (1.2-6.7); Basophils % 0.6; Eosinophils % 5.7; HCT 47.8 % (40.0-50.0); HGB 15.3 g/dL (13.5-17.5); Immature Grans % 0.6; Lymphocytes % 21.3; MCH 31.8 pg (27.0-33.0); MCV 99 fL (80-95); MPV 8.4 fL (8.0-11.0); Monocytes % 10.4; Neutrophils % 61.4; Platelet Count 172 10^3/uL (130-400); RBC 4.81 10^6/uL (4.36-5.78)
[2023-02-07 08:37] LABS: ALT 18 U/L (16-63); AST 13 U/L (15-37); Albumin 3.2 g/dL (3.4-5.0); Alkaline Phosphatase 88 U/L (46-116); Anion Gap 6.9 mmol/L (3-11); BUN 7 mg/dL (7-18); Bilirubin, Total 0.3 mg/dL (0.2-1.0); CO2 32.1 mmol/L (21.0-32.0); CREATININE 0.9 mg/dL (0.70-1.30); Calcium 8.4 mg/dL (8.5-10.1); Chloride 101 mmol/L (98-107); Estimated GFR 93.61 (mL/min/1.73m2); FREE T4 1.17 ng/dL (0.76-1.46); Glucose 107 mg/dL (74-106); Magnesium 1.8 mg/dL (1.8-2.4); Potassium 4.6 mmol/L (3.5-5.1); Sodium 140 mmol/L (136-145); TSH 0.29 uIU/mL (0.36-3.74); Total Protein 6.7 g/dL (6.4-8.2)
== END 2023-02-11 23:59 | disposition home or self-care (01) ==
LOC: INF 02:51
PROVIDERS: PCP Internal Medicine; Visit Provider Nurse Practitioner Adult Health
DX: Z79.899 Other long term (current) drug therapy (principal); C34.11 Malignant neoplasm of upper lobe, right bronchus or lung; Z45.2 Encounter for adjustment and management of vascular access device
CPT/HCPCS: 36591; 80053; 83735; 84439; 84443; 85025

== ENCOUNTER 2023-02-28 04:02 | Outpatient (RCR) | payer OTHER, SELFPAY ==
[2023-02-28] MEDS: Normal Saline Flush 10 ML SYR IVP (08:00)
[2023-02-28 08:03] LABS: Abs Immature Grans 0.02 10^3/uL (0.0-0.06); Absolute Basophil Count 0.04 10^3/uL (0.0-0.2); Absolute Eosinophil Count 0.27 10^3/uL (0.0-0.7); Absolute Lymphocyte Count 1.32 10^3/uL (1.2-3.4); Absolute Monocyte Count 0.53 10^3/uL (0.1-0.8); Basophils % 0.7; Eosinophils % 4.8; HCT 49.5 % (40.0-50.0); HGB 16.3 g/dL (13.5-17.5); Immature Grans % 0.4; Lymphocytes % 23.7; MCH 32.1 pg (27.0-33.0); MCHC 32.9 % (32.0-36.0); MCV 98 fL (80-95); MPV 8.4 fL (8.0-11.0); Monocytes % 9.5; Neutrophils % 60.9; Platelet Count 161 10^3/uL (130-400); RBC 5.07 10^6/uL (4.36-5.78); RDW 13.2 % (11.8-14.1); RDW-SD 47.1 fL; WBC 5.58 10^3/uL (4.4-10.8)
[2023-02-28 08:36] LABS: ALT 15 U/L (16-63); AST 10 U/L (15-37); Albumin 3.4 g/dL (3.4-5.0); Alkaline Phosphatase 95 U/L (46-116); Anion Gap 3.3 mmol/L (3-11); BUN 8 mg/dL (7-18); Bilirubin, Total 0.4 mg/dL (0.2-1.0); CO2 35.7 mmol/L (21.0-32.0); CREATININE 0.9 mg/dL (0.70-1.30); Calcium 8.7 mg/dL (8.5-10.1); Chloride 103 mmol/L (98-107); Estimated GFR 93.61 (mL/min/1.73m2); FREE T4 1.19 ng/dL (0.76-1.46); Glucose 103 mg/dL (74-106); Potassium 4.2 mmol/L (3.5-5.1); Sodium 142 mmol/L (136-145); TSH 0.27 uIU/mL (0.36-3.74); Total Protein 6.8 g/dL (6.4-8.2)
== END 2023-03-14 23:59 | disposition home or self-care (01) ==
LOC: INF 04:02
PROVIDERS: PCP Internal Medicine; Visit Provider Nurse Practitioner Adult Health
DX: Z79.899 Other long term (current) drug therapy (principal); C34.11 Malignant neoplasm of upper lobe, right bronchus or lung; Z45.2 Encounter for adjustment and management of vascular access device
CPT/HCPCS: 36591; 80053; 83735; 84439; 84443; 85025

== ENCOUNTER 2023-04-11 02:04 | Outpatient (RCR) | payer OTHER, SELFPAY ==
[2023-03-21 07:53] LABS: Abs Immature Grans 0.03 10^3/uL (0.0-0.06); Absolute Basophil Count 0.03 10^3/uL (0.0-0.2); Absolute Eosinophil Count 0.27 10^3/uL (0.0-0.7); Absolute Lymphocyte Count 1.05 10^3/uL (1.2-3.4); Absolute Monocyte Count 0.61 10^3/uL (0.1-0.8); Absolute Neutrophil Count 3.81 10^3/uL (1.2-6.7); Basophils % 0.5; Eosinophils % 4.7; HCT 54.1 % (40.0-50.0); HGB 17.2 g/dL (13.5-17.5); Immature Grans % 0.5; Lymphocytes % 18.1; MCH 31.6 pg (27.0-33.0); MCHC 31.8 % (32.0-36.0); MCV 99 fL (80-95); MPV 8.3 fL (8.0-11.0); Monocytes % 10.5; Neutrophils % 65.7; Platelet Count 156 10^3/uL (130-400); RBC 5.44 10^6/uL (4.36-5.78); RDW 14.2 % (11.8-14.1); RDW-SD 52.8 fL
[2023-03-21] MEDS: Normal Saline Flush 10 ML SYR IVP (08:15)
[2023-03-21 08:18] LABS: ALT 16 U/L (16-63); AST 13 U/L (15-37); Albumin 3.4 g/dL (3.4-5.0); Alkaline Phosphatase 102 U/L (46-116); Anion Gap 3.5 mmol/L (3-11); BUN 7 mg/dL (7-18); Bilirubin, Total 0.5 mg/dL (0.2-1.0); CO2 33.5 mmol/L (21.0-32.0); CREATININE 0.8 mg/dL (0.70-1.30); Calcium 8.7 mg/dL (8.5-10.1); Chloride 103 mmol/L (98-107); FREE T4 0.83 ng/dL (0.76-1.46); Glucose 93 mg/dL (74-106); Potassium 4.4 mmol/L (3.5-5.1); Sodium 140 mmol/L (136-145); TSH 1.17 uIU/mL (0.36-3.74); Total Protein 6.9 g/dL (6.4-8.2)
[2023-04-11] MEDS: Normal Saline Flush 10 ML SYR IVP (07:43)
[2023-04-11 08:07] LABS: Abs Immature Grans 0.03 10^3/uL (0.0-0.06); Absolute Basophil Count 0.04 10^3/uL (0.0-0.2); Absolute Eosinophil Count 0.31 10^3/uL (0.0-0.7); Absolute Lymphocyte Count 1.41 10^3/uL (1.2-3.4); Absolute Monocyte Count 0.44 10^3/uL (0.1-0.8); Absolute Neutrophil Count 2.87 10^3/uL (1.2-6.7); Basophils % 0.8; Eosinophils % 6.1; HCT 54.4 % (40.0-50.0); HGB 17.3 g/dL (13.5-17.5); Immature Grans % 0.6; Lymphocytes % 27.6; MCH 31.5 pg (27.0-33.0); MCHC 31.8 % (32.0-36.0); MCV 99 fL (80-95); MPV 8.7 fL (8.0-11.0); Monocytes % 8.6; Neutrophils % 56.3; Platelet Count 148 10^3/uL (130-400); RDW 14.2 % (11.8-14.1); RDW-SD 52.1 fL
[2023-04-11 08:33] LABS: ALT 11 U/L (16-63); AST 10 U/L (15-37); Albumin 3.2 g/dL (3.4-5.0); Alkaline Phosphatase 95 U/L (46-116); Anion Gap 3.8 mmol/L (3-11); BUN 7 mg/dL (7-18); Bilirubin, Total 0.5 mg/dL (0.2-1.0); CO2 34.2 mmol/L (21.0-32.0); CREATININE 0.9 mg/dL (0.70-1.30); Calcium 8.4 mg/dL (8.5-10.1); Chloride 104 mmol/L (98-107); Estimated GFR 93.61 (mL/min/1.73m2); FREE T4 0.58 ng/dL (0.76-1.46); Glucose 98 mg/dL (74-106); Magnesium 1.9 mg/dL (1.8-2.4); Potassium 4.5 mmol/L (3.5-5.1); Sodium 142 mmol/L (136-145); TSH 10.06 uIU/mL (0.36-3.74); Total Protein 6.5 g/dL (6.4-8.2)
== END 2023-04-14 23:59 | disposition home or self-care (01) ==
LOC: INF 02:04
PROVIDERS: PCP Internal Medicine; Visit Provider Nurse Practitioner Adult Health
DX: C34.11 Malignant neoplasm of upper lobe, right bronchus or lung (principal); Z79.899 Other long term (current) drug therapy; Z45.2 Encounter for adjustment and management of vascular access device
CPT/HCPCS: 36591; 80053; 83735; 84439; 84443; 85025

== ENCOUNTER 2023-05-11 02:01 | Outpatient (RCR) | payer OTHER, SELFPAY ==
[2023-05-04] MEDS: Normal Saline Flush 10 ML SYR IVP (08:23)
[2023-05-04 08:41] LABS: Abs Immature Grans 0.03 10^3/uL (0.0-0.06); Absolute Basophil Count 0.04 10^3/uL (0.0-0.2); Absolute Eosinophil Count 0.15 10^3/uL (0.0-0.7); Absolute Lymphocyte Count 1.15 10^3/uL (1.2-3.4); Absolute Monocyte Count 0.46 10^3/uL (0.1-0.8); Absolute Neutrophil Count 3.44 10^3/uL (1.2-6.7); Basophils % 0.8; Eosinophils % 2.8; HCT 53.8 % (40.0-50.0); HGB 16.7 g/dL (13.5-17.5); Immature Grans % 0.6; Lymphocytes % 21.8; MCH 31.1 pg (27.0-33.0); MCV 100 fL (80-95); MPV 8.7 fL (8.0-11.0); Monocytes % 8.7; Neutrophils % 65.3; Platelet Count 151 10^3/uL (130-400); RBC 5.37 10^6/uL (4.36-5.78); RDW 14.5 % (11.8-14.1); RDW-SD 53.3 fL; WBC 5.27 10^3/uL (4.4-10.8)
[2023-05-04 09:10] LABS: ALT 39 U/L (16-63); AST 30 U/L (15-37); Albumin 3.3 g/dL (3.4-5.0); Alkaline Phosphatase 108 U/L (46-116); Anion Gap -0.4 mmol/L (3-11); BUN 9 mg/dL (7-18); Bilirubin, Total 0.5 mg/dL (0.2-1.0); CO2 39.4 mmol/L (21.0-32.0); Calcium 9.2 mg/dL (8.5-10.1); Chloride 101 mmol/L (98-107); Estimated GFR 82.49 (mL/min/1.73m2); FREE T4 1.22 ng/dL (0.76-1.46); Glucose 107 mg/dL (74-106); Magnesium 2.1 mg/dL (1.8-2.4); Sodium 140 mmol/L (136-145); TSH 0.61 uIU/mL (0.36-3.74); Total Protein 6.9 g/dL (6.4-8.2)
[2023-05-11] MEDS: Normal Saline Flush 10 ML SYR IVP (07:38)
[2023-05-11 08:02] LABS: Abs Immature Grans 0.01 10^3/uL (0.0-0.06); Absolute Basophil Count 0.04 10^3/uL (0.0-0.2); Absolute Eosinophil Count 0.15 10^3/uL (0.0-0.7); Absolute Lymphocyte Count 1.31 10^3/uL (1.2-3.4); Absolute Monocyte Count 0.52 10^3/uL (0.1-0.8); Absolute Neutrophil Count 3.61 10^3/uL (1.2-6.7); Basophils % 0.7; Eosinophils % 2.7; HCT 55.6 % (40.0-50.0); HGB 17.2 g/dL (13.5-17.5); Immature Grans % 0.2; Lymphocytes % 23.2; MCH 30.4 pg (27.0-33.0); MCHC 30.9 % (32.0-36.0); MCV 98 fL (80-95); MPV 8.9 fL (8.0-11.0); Monocytes % 9.2; Platelet Count 199 10^3/uL (130-400); RBC 5.65 10^6/uL (4.36-5.78); RDW 14.5 % (11.8-14.1); RDW-SD 53.3 fL; WBC 5.64 10^3/uL (4.4-10.8)
[2023-05-11 08:29] LABS: ALT 20 U/L (16-63); AST 11 U/L (15-37); Albumin 3.3 g/dL (3.4-5.0); Alkaline Phosphatase 93 U/L (46-116); Anion Gap 5.2 mmol/L (3-11); BUN 9 mg/dL (7-18); Bilirubin, Total 0.6 mg/dL (0.2-1.0); CO2 33.8 mmol/L (21.0-32.0); CREATININE 0.9 mg/dL (0.70-1.30); Calcium 8.9 mg/dL (8.5-10.1); Chloride 103 mmol/L (98-107); Estimated GFR 93.61 (mL/min/1.73m2); FREE T4 1.09 ng/dL (0.76-1.46); Glucose 100 mg/dL (74-106); Potassium 4.3 mmol/L (3.5-5.1); Sodium 142 mmol/L (136-145); TSH 0.71 uIU/mL (0.36-3.74); Total Protein 6.9 g/dL (6.4-8.2)
== END 2023-05-14 23:59 | disposition home or self-care (01) ==
LOC: INF 02:01
PROVIDERS: Nurse Practitioner Family; PCP Internal Medicine; Visit Provider Nurse Practitioner Adult Health
DX: C34.11 Malignant neoplasm of upper lobe, right bronchus or lung (principal); Z79.899 Other long term (current) drug therapy
CPT/HCPCS: 36415; 36591; 80053; 83735; 84439; 84443; 85025

== ENCOUNTER 2023-06-01 03:39 | Outpatient (RCR) | payer OTHER, SELFPAY ==
[2023-06-01] MEDS: Normal Saline Flush 10 ML SYR IVP (07:34)
[2023-06-01 07:37] LABS: Abs Immature Grans 0.02 10^3/uL (0.0-0.06); Absolute Basophil Count 0.03 10^3/uL (0.0-0.2); Absolute Eosinophil Count 0.23 10^3/uL (0.0-0.7); Absolute Lymphocyte Count 1.39 10^3/uL (1.2-3.4); Absolute Monocyte Count 0.53 10^3/uL (0.1-0.8); Basophils % 0.6; Eosinophils % 4.5; HCT 52.1 % (40.0-50.0); HGB 16.9 g/dL (13.5-17.5); Immature Grans % 0.4; Lymphocytes % 27.3; MCHC 32.4 % (32.0-36.0); MCV 96 fL (80-95); MPV 8.8 fL (8.0-11.0); Monocytes % 10.4; Neutrophils % 56.8; Platelet Count 176 10^3/uL (130-400); RBC 5.45 10^6/uL (4.36-5.78); RDW 13.8 % (11.8-14.1); RDW-SD 48.6 fL
[2023-06-01 08:03] LABS: ALT 14 U/L (16-63); AST 12 U/L (15-37); Albumin 3.3 g/dL (3.4-5.0); Alkaline Phosphatase 93 U/L (46-116); Anion Gap 3.3 mmol/L (3-11); BUN 14 mg/dL (7-18); Bilirubin, Total 0.3 mg/dL (0.2-1.0); CO2 31.7 mmol/L (21.0-32.0); CREATININE 0.9 mg/dL (0.70-1.30); Calcium 9.1 mg/dL (8.5-10.1); Chloride 103 mmol/L (98-107); Estimated GFR 93.61 (mL/min/1.73m2); FREE T4 1.06 ng/dL (0.76-1.46); Glucose 114 mg/dL (74-106); Magnesium 1.9 mg/dL (1.8-2.4); Potassium 4.5 mmol/L (3.5-5.1); Sodium 138 mmol/L (136-145); TSH 0.45 uIU/mL (0.36-3.74)
== END 2023-06-14 23:59 | disposition home or self-care (01) ==
LOC: INF 03:39
PROVIDERS: PCP Internal Medicine; Visit Provider Nurse Practitioner Adult Health
DX: C34.11 Malignant neoplasm of upper lobe, right bronchus or lung (principal); Z79.899 Other long term (current) drug therapy; Z45.2 Encounter for adjustment and management of vascular access device
CPT/HCPCS: 36591; 80053; 83735; 84439; 84443; 85025

== ENCOUNTER 2023-06-27 02:15 | Outpatient (RCR) | payer OTHER, SELFPAY ==
[2023-06-27] MEDS: Normal Saline Flush 10 ML SYR IVP (07:28)
[2023-06-27 07:56] LABS: Abs Immature Grans 0.01 10^3/uL (0.0-0.06); Absolute Basophil Count 0.03 10^3/uL (0.0-0.2); Absolute Lymphocyte Count 1.22 10^3/uL (1.2-3.4); Absolute Monocyte Count 0.44 10^3/uL (0.1-0.8); Absolute Neutrophil Count 3.44 10^3/uL (1.2-6.7); Basophils % 0.6; Eosinophils % 3.7; HCT 51.2 % (40.0-50.0); HGB 16.6 g/dL (13.5-17.5); Immature Grans % 0.2; Lymphocytes % 22.8; MCH 31.1 pg (27.0-33.0); MCHC 32.4 % (32.0-36.0); MCV 96 fL (80-95); MPV 8.9 fL (8.0-11.0); Monocytes % 8.2; Neutrophils % 64.5; Platelet Count 164 10^3/uL (130-400); RBC 5.34 10^6/uL (4.36-5.78); RDW 13.8 % (11.8-14.1); RDW-SD 49.4 fL; WBC 5.34 10^3/uL (4.4-10.8)
[2023-06-27 08:31] LABS: ALT 15 U/L (16-63); AST 12 U/L (15-37); Albumin 3.2 g/dL (3.4-5.0); Alkaline Phosphatase 83 U/L (46-116); Anion Gap 5.4 mmol/L (3-11); BUN 9 mg/dL (7-18); Bilirubin, Total 0.5 mg/dL (0.2-1.0); CO2 32.6 mmol/L (21.0-32.0); CREATININE 0.8 mg/dL (0.70-1.30); Calcium 8.9 mg/dL (8.5-10.1); Chloride 103 mmol/L (98-107); FREE T4 1.04 ng/dL (0.76-1.46); Glucose 111 mg/dL (74-106); Potassium 4.4 mmol/L (3.5-5.1); Sodium 141 mmol/L (136-145); TSH 0.45 uIU/mL (0.36-3.74); Total Protein 6.9 g/dL (6.4-8.2)
== END 2023-07-14 23:59 | disposition home or self-care (01) ==
LOC: INF 02:15
PROVIDERS: Internal Medicine Medical Oncology; PCP Internal Medicine; Visit Provider Nurse Practitioner Adult Health
DX: C34.11 Malignant neoplasm of upper lobe, right bronchus or lung (principal); Z79.899 Other long term (current) drug therapy; Z45.2 Encounter for adjustment and management of vascular access device
CPT/HCPCS: 36591; 80053; 83735; 84439; 84443; 85025

== ENCOUNTER 2023-09-12 03:04 | Outpatient (RCR) | payer OTHER, SELFPAY ==
[2023-08-22] MEDS: Normal Saline Flush 10 ML SYR IVP (07:32)
[2023-08-22 08:25] LABS: Abs Immature Grans 0.06 10^3/uL (0.0-0.06); Absolute Basophil Count 0.04 10^3/uL (0.0-0.2); Absolute Eosinophil Count 0.18 10^3/uL (0.0-0.7); Absolute Lymphocyte Count 1.11 10^3/uL (1.2-3.4); Absolute Monocyte Count 0.61 10^3/uL (0.1-0.8); Absolute Neutrophil Count 3.53 10^3/uL (1.2-6.7); Basophils % 0.7; Eosinophils % 3.3; HCT 44.3 % (40.0-50.0); HGB 14.5 g/dL (13.5-17.5); Immature Grans % 1.1; Lymphocytes % 20.1; MCH 31.9 pg (27.0-33.0); MCHC 32.7 % (32.0-36.0); MCV 98 fL (80-95); MPV 8.4 fL (8.0-11.0); Neutrophils % 63.8; Platelet Count 244 10^3/uL (130-400); RBC 4.54 10^6/uL (4.36-5.78); RDW 15.1 % (11.8-14.1); WBC 5.53 10^3/uL (4.4-10.8)
[2023-08-22 08:56] LABS: ALT 19 U/L (16-63); AST 12 U/L (15-37); Albumin 3.2 g/dL (3.4-5.0); Alkaline Phosphatase 90 U/L (46-116); Anion Gap 5.9 mmol/L (3-11); BUN 9 mg/dL (7-18); Bilirubin, Total 0.5 mg/dL (0.2-1.0); CO2 33.1 mmol/L (21.0-32.0); CREATININE 0.9 mg/dL (0.70-1.30); Calcium 9.3 mg/dL (8.5-10.1); Chloride 104 mmol/L (98-107); Estimated GFR 93.61 (mL/min/1.73m2); FREE T4 1.27 ng/dL (0.76-1.46); Glucose 106 mg/dL (74-106); Magnesium 2.1 mg/dL (1.8-2.4); Potassium 4.3 mmol/L (3.5-5.1); Sodium 143 mmol/L (136-145); TSH 0.21 uIU/mL (0.36-3.74); Total Protein 7.1 g/dL (6.4-8.2)
[2023-09-12] MEDS: Normal Saline Flush 10 ML SYR IVP (07:59)
[2023-09-12 08:08] LABS: Abs Immature Grans 0.13 10^3/uL (0.0-0.06); Absolute Basophil Count 0.02 10^3/uL (0.0-0.2); Absolute Eosinophil Count 0.02 10^3/uL (0.0-0.7); Absolute Lymphocyte Count 0.86 10^3/uL (1.2-3.4); Absolute Monocyte Count 0.48 10^3/uL (0.1-0.8); Absolute Neutrophil Count 5.71 10^3/uL (1.2-6.7); Basophils % 0.3; Eosinophils % 0.3; HCT 43.8 % (40.0-50.0); HGB 14.7 g/dL (13.5-17.5); Immature Grans % 1.8; Lymphocytes % 11.9; MCHC 33.6 % (32.0-36.0); MCV 98 fL (80-95); MPV 8.4 fL (8.0-11.0); Monocytes % 6.6; Neutrophils % 79.1; Platelet Count 185 10^3/uL (130-400); RBC 4.46 10^6/uL (4.36-5.78); RDW 13.8 % (11.8-14.1); RDW-SD 50.2 fL; WBC 7.22 10^3/uL (4.4-10.8)
[2023-09-12 08:33] LABS: Albumin 3.1 g/dL (3.4-5.0); Anion Gap 6.3 mmol/L (3-11); BUN 14 mg/dL (7-18); CO2 32.7 mmol/L (21.0-32.0); CREATININE 0.8 mg/dL (0.70-1.30); Calcium 8.6 mg/dL (8.5-10.1); Chloride 103 mmol/L (98-107); Glucose 114 mg/dL (74-106); Sodium 142 mmol/L (136-145)
[2023-09-12 08:55] LABS: ALT 17 U/L (16-63); AST 11 U/L (15-37); Alkaline Phosphatase 76 U/L (46-116); Bilirubin, Total 0.4 mg/dL (0.2-1.0); FREE T4 1.11 ng/dL (0.76-1.46); TSH 0.16 uIU/mL (0.36-3.74); Total Protein 6.3 g/dL (6.4-8.2)
== END 2023-09-14 23:59 | disposition home or self-care (01) ==
LOC: INF 03:04
PROVIDERS: Internal Medicine Medical Oncology; PCP Internal Medicine; Visit Provider Nurse Practitioner Adult Health
DX: C34.11 Malignant neoplasm of upper lobe, right bronchus or lung (principal); Z79.899 Other long term (current) drug therapy; Z45.2 Encounter for adjustment and management of vascular access device
CPT/HCPCS: 36591; 80053; 83735; 84439; 84443; 85025

== ENCOUNTER 2023-10-03 04:46 | Outpatient (RCR) | payer OTHER, SELFPAY ==
[2023-10-03 08:02] LABS: Abs Immature Grans 0.07 10^3/uL (0.0-0.06); Absolute Basophil Count 0.02 10^3/uL (0.0-0.2); Absolute Eosinophil Count 0.16 10^3/uL (0.0-0.7); Absolute Lymphocyte Count 0.64 10^3/uL (1.2-3.4); Absolute Monocyte Count 0.37 10^3/uL (0.1-0.8); Absolute Neutrophil Count 3.48 10^3/uL (1.2-6.7); Basophils % 0.4; Eosinophils % 3.4; HCT 38.7 % (40.0-50.0); Immature Grans % 1.5; Lymphocytes % 13.5; MCH 32.7 pg (27.0-33.0); MCHC 33.6 % (32.0-36.0); MCV 98 fL (80-95); MPV 8.7 fL (8.0-11.0); Monocytes % 7.8; Neutrophils % 73.4; Platelet Count 182 10^3/uL (130-400); RBC 3.97 10^6/uL (4.36-5.78); RDW 13.6 % (11.8-14.1); RDW-SD 48.6 fL; WBC 4.74 10^3/uL (4.4-10.8)
[2023-10-03] MEDS: Normal Saline Flush 10 ML SYR IVP (08:12)
[2023-10-03 08:30] LABS: ALT 18 U/L (16-63); AST 12 U/L (15-37); Albumin 2.6 g/dL (3.4-5.0); Alkaline Phosphatase 122 U/L (46-116); Anion Gap 5.7 mmol/L (3-11); BUN 7 mg/dL (7-18); Bilirubin, Total 0.5 mg/dL (0.2-1.0); CO2 34.3 mmol/L (21.0-32.0); CREATININE 0.9 mg/dL (0.70-1.30); Calcium 8.6 mg/dL (8.5-10.1); Chloride 100 mmol/L (98-107); Estimated GFR 93.61 (mL/min/1.73m2); FREE T4 0.95 ng/dL (0.76-1.46); Glucose 116 mg/dL (74-106); Magnesium 1.8 mg/dL (1.8-2.4); Potassium 4.3 mmol/L (3.5-5.1); Sodium 140 mmol/L (136-145); TSH 1.62 uIU/mL (0.36-3.74); Total Protein 6.4 g/dL (6.4-8.2)
== END 2023-10-13 23:59 | disposition home or self-care (01) ==
LOC: INF 04:46
PROVIDERS: PCP Internal Medicine; Visit Provider Nurse Practitioner Adult Health
DX: C34.11 Malignant neoplasm of upper lobe, right bronchus or lung (principal); Z79.899 Other long term (current) drug therapy; Z45.2 Encounter for adjustment and management of vascular access device
CPT/HCPCS: 36591; 80053; 83735; 84439; 84443; 85025

== ENCOUNTER 2023-10-24 03:02 | Outpatient (RCR) | payer OTHER, SELFPAY ==
[2023-10-24] MEDS: Normal Saline Flush 10 ML SYR IVP (07:38)
[2023-10-24 07:45] LABS: Abs Immature Grans 0.08 10^3/uL (0.0-0.06); Absolute Basophil Count 0.04 10^3/uL (0.0-0.2); Absolute Eosinophil Count 0.42 10^3/uL (0.0-0.7); Absolute Lymphocyte Count 1.33 10^3/uL (1.2-3.4); Absolute Monocyte Count 0.99 10^3/uL (0.1-0.8); Basophils % 0.5; Eosinophils % 4.9; HCT 40.6 % (40.0-50.0); HGB 12.6 g/dL (13.5-17.5); Immature Grans % 0.9; Lymphocytes % 15.5; MCH 30.3 pg (27.0-33.0); MCV 98 fL (80-95); MPV 8.2 fL (8.0-11.0); Monocytes % 11.6; Neutrophils % 66.6; Platelet Count 293 10^3/uL (130-400); RBC 4.16 10^6/uL (4.36-5.78); RDW 14.8 % (11.8-14.1); RDW-SD 53.1 fL; WBC 8.56 10^3/uL (4.4-10.8)
[2023-10-24 08:11] LABS: ALT 15 U/L (16-63); AST 8 U/L (15-37); Albumin 2.6 g/dL (3.4-5.0); Alkaline Phosphatase 102 U/L (46-116); BUN 8 mg/dL (7-18); Bilirubin, Total 0.4 mg/dL (0.2-1.0); CREATININE 0.9 mg/dL (0.70-1.30); Calcium 8.5 mg/dL (8.5-10.1); Chloride 101 mmol/L (98-107); Estimated GFR 93.61 (mL/min/1.73m2); FREE T4 0.98 ng/dL (0.76-1.46); Glucose 119 mg/dL (74-106); Magnesium 1.8 mg/dL (1.8-2.4); Potassium 4.4 mmol/L (3.5-5.1); Sodium 141 mmol/L (136-145); TSH 2.91 uIU/Ml (0.36-3.74); Total Protein 6.5 g/dL (6.4-8.2)
== END 2023-11-13 23:59 | disposition home or self-care (01) ==
LOC: INF 03:02
PROVIDERS: Nurse Practitioner Family; PCP Internal Medicine; Visit Provider Nurse Practitioner Adult Health
DX: E03.2 Hypothyroidism due to medicaments and other exogenous substances (principal); C34.11 Malignant neoplasm of upper lobe, right bronchus or lung; Z79.899 Other long term (current) drug therapy; Z45.2 Encounter for adjustment and management of vascular access device
CPT/HCPCS: 36591; 80053; 83735; 84439; 84443; 85025

== ENCOUNTER 2023-12-05 04:51 | Outpatient (RCR) | payer OTHER, SELFPAY ==
[2023-11-14 07:58] LABS: Abs Immature Grans 0.03 10^3/uL (0.0-0.06); Absolute Basophil Count 0.04 10^3/uL (0.0-0.2); Absolute Eosinophil Count 0.29 10^3/uL (0.0-0.7); Absolute Lymphocyte Count 0.96 10^3/uL (1.2-3.4); Absolute Neutrophil Count 4.05 10^3/uL (1.2-6.7); Basophils % 0.7; Eosinophils % 4.9; HCT 45.6 % (40.0-50.0); HGB 14.4 g/dL (13.5-17.5); Immature Grans % 0.5; Lymphocytes % 16.1; MCH 30.4 pg (27.0-33.0); MCHC 31.6 % (32.0-36.0); MCV 96 fL (80-95); MPV 8.1 fL (8.0-11.0); Monocytes % 10.1; Neutrophils % 67.7; Platelet Count 201 10^3/uL (130-400); RBC 4.74 10^6/uL (4.36-5.78); RDW 15.2 % (11.8-14.1); RDW-SD 54.2 fL; WBC 5.97 10^3/uL (4.4-10.8)
[2023-11-14 08:25] LABS: ALT 14 U/L (16-63); AST 11 U/L (15-37); Albumin 3.1 g/dL (3.4-5.0); Alkaline Phosphatase 98 U/L (46-116); Anion Gap 6.9 mmol/L (3-11); BUN 10 mg/dL (7-18); Bilirubin, Total 0.4 mg/dL (0.2-1.0); CO2 34.1 mmol/L (21.0-32.0); CREATININE 0.9 mg/dL (0.70-1.30); Calcium 8.6 mg/dL (8.5-10.1); Chloride 104 mmol/L (98-107); Estimated GFR 93.61 (mL/min/1.73m2); FREE T4 0.75 ng/dL (0.76-1.46); Glucose 113 mg/dL (74-106); Potassium 4.4 mmol/L (3.5-5.1); Sodium 145 mmol/L (136-145); TSH 2.21 uIU/Ml (0.36-3.74); Total Protein 6.8 g/dL (6.4-8.2)
[2023-11-14] MEDS: Normal Saline Flush 10 ML SYR IVP (08:45)
[2023-12-05] MEDS: Normal Saline Flush 10 ML SYR IVP (07:42)
[2023-12-05 08:10] LABS: Abs Immature Grans 0.02 10^3/uL (0.0-0.06); Absolute Basophil Count 0.04 10^3/uL (0.0-0.2); Absolute Eosinophil Count 0.24 10^3/uL (0.0-0.7); Absolute Lymphocyte Count 1.01 10^3/uL (1.2-3.4); Absolute Monocyte Count 0.42 10^3/uL (0.1-0.8); Absolute Neutrophil Count 2.85 10^3/uL (1.2-6.7); Basophils % 0.9; Eosinophils % 5.2; HCT 47.4 % (40.0-50.0); HGB 15.1 g/dL (13.5-17.5); Immature Grans % 0.4; Lymphocytes % 22.1; MCH 29.6 pg (27.0-33.0); MCHC 31.9 % (32.0-36.0); MCV 93 fL (80-95); MPV 8.5 fL (8.0-11.0); Monocytes % 9.2; Neutrophils % 62.2; Platelet Count 220 10^3/uL (130-400); RDW 14.9 % (11.8-14.1); RDW-SD 51.3 fL; WBC 4.58 10^3/uL (4.4-10.8)
[2023-12-05 08:36] LABS: ALT 17 U/L (16-63); AST 13 U/L (15-37); Albumin 3.4 g/dL (3.4-5.0); Alkaline Phosphatase 102 U/L (46-116); Anion Gap 10.1 mmol/L (3-11); BUN 6 mg/dL (7-18); Bilirubin, Total 0.3 mg/dL (0.2-1.0); CO2 30.9 mmol/L (21.0-32.0); CREATININE 0.8 mg/dL (0.70-1.30); Calcium 8.8 mg/dL (8.5-10.1); Chloride 101 mmol/L (98-107); FREE T4 0.76 ng/dL (0.76-1.46); Glucose 107 mg/dL (74-106); Magnesium 1.8 mg/dL (1.8-2.4); Potassium 4.4 mmol/L (3.5-5.1); Sodium 142 mmol/L (136-145); TSH 7.76 uIU/Ml (0.36-3.74); Total Protein 7.2 g/dL (6.4-8.2)
== END 2023-12-13 23:59 | disposition home or self-care (01) ==
LOC: INF 04:51
PROVIDERS: Nurse Practitioner Family; PCP Internal Medicine; Visit Provider Nurse Practitioner Adult Health
DX: E03.2 Hypothyroidism due to medicaments and other exogenous substances (principal); C34.11 Malignant neoplasm of upper lobe, right bronchus or lung; Z45.2 Encounter for adjustment and management of vascular access device
CPT/HCPCS: 36591; 80053; 83735; 84439; 84443; 85025

== ENCOUNTER 2023-12-26 04:37 | Outpatient (RCR) | payer OTHER, SELFPAY ==
[2023-12-26] MEDS: Normal Saline Flush 10 ML SYR IVP (07:56)
[2023-12-26 08:42] LABS: Abs Immature Grans 0.03 10^3/uL (0.0-0.06); Absolute Basophil Count 0.03 10^3/uL (0.0-0.2); Absolute Eosinophil Count 0.14 10^3/uL (0.0-0.7); Absolute Lymphocyte Count 0.99 10^3/uL (1.2-3.4); Absolute Monocyte Count 0.52 10^3/uL (0.1-0.8); Absolute Neutrophil Count 2.97 10^3/uL (1.2-6.7); Basophils % 0.6 %; HCT 46.6 % (40.0-50.0); HGB 14.8 g/dL (13.5-17.5); Immature Grans % 0.6 %; Lymphocytes % 21.2 %; MCH 30.1 pg (27.0-33.0); MCHC 31.8 % (32.0-36.0); MCV 95 fL (80-95); MPV 8.6 fL (8.0-11.0); Monocytes % 11.1 %; Neutrophils % 63.5 %; Platelet Count 187 10^3/uL (130-400); RBC 4.92 10^6/uL (4.36-5.78); RDW 15.6 % (11.8-14.1); WBC 4.68 10^3/uL (4.4-10.8)
[2023-12-26 09:15] LABS: ALT 20 U/L (16-63); AST 11 U/L (15-37); Albumin 3.5 g/dL (3.4-5.0); Alkaline Phosphatase 97 U/L (46-116); Anion Gap 5.3 mmol/L (3-11); BUN 11 mg/dL (7-18); Bilirubin, Total 0.3 mg/dL (0.2-1.0); CO2 34.7 mmol/L (21.0-32.0); CREATININE 0.9 mg/dL (0.70-1.30); Calcium 8.6 mg/dL (8.5-10.1); Chloride 103 mmol/L (98-107); Estimated GFR 93.61 (mL/min/1.73m2); FREE T4 1.34 ng/dL (0.76-1.46); Glucose 110 mg/dL (74-106); Magnesium 1.9 mg/dL (1.8-2.4); Potassium 4.6 mmol/L (3.5-5.1); Sodium 143 mmol/L (136-145); TSH 0.33 uIU/Ml (0.36-3.74); Total Protein 6.9 g/dL (6.4-8.2)
== END 2024-01-13 23:59 | disposition home or self-care (01) ==
LOC: INF 04:37
PROVIDERS: Nurse Practitioner Family; PCP Internal Medicine; Visit Provider Nurse Practitioner Adult Health
DX: E03.2 Hypothyroidism due to medicaments and other exogenous substances (principal); C34.11 Malignant neoplasm of upper lobe, right bronchus or lung; Z79.899 Other long term (current) drug therapy
CPT/HCPCS: 36415; 80053; 96523; 83735; 84439; 84443; 85025

== ENCOUNTER 2024-02-06 02:47 | Outpatient (RCR) | payer OTHER, SELFPAY ==
[2024-01-16] MEDS: Normal Saline Flush 10 ML SYR IVP (07:41)
[2024-01-16 07:50] LABS: Abs Immature Grans 0.05 10^3/uL (0.0-0.06); Absolute Basophil Count 0.04 10^3/uL (0.0-0.2); Absolute Eosinophil Count 0.17 10^3/uL (0.0-0.7); Absolute Lymphocyte Count 0.94 10^3/uL (1.2-3.4); Absolute Monocyte Count 0.56 10^3/uL (0.1-0.8); Basophils % 0.9 %; Eosinophils % 3.9 %; HCT 47.4 % (40.0-50.0); HGB 15.3 g/dL (13.5-17.5); Immature Grans % 1.1 %; Lymphocytes % 21.6 %; MCH 30.1 pg (27.0-33.0); MCHC 32.3 % (32.0-36.0); MCV 93 fL (80-95); MPV 8.4 fL (8.0-11.0); Monocytes % 12.8 %; Neutrophils % 59.7 %; Platelet Count 198 10^3/uL (130-400); RBC 5.08 10^6/uL (4.36-5.78); RDW-SD 52.1 fL; WBC 4.36 10^3/uL (4.4-10.8)
[2024-01-16 08:14] LABS: ALT 19 U/L (16-63); AST 9 U/L (15-37); Albumin 3.2 g/dL (3.4-5.0); Alkaline Phosphatase 89 U/L (46-116); Anion Gap 4.7 mmol/L (3-11); BUN 10 mg/dL (7-18); Bilirubin, Total 0.3 mg/dL (0.2-1.0); CO2 36.3 mmol/L (21.0-32.0); CREATININE 0.9 mg/dL (0.70-1.30); Calcium 8.5 mg/dL (8.5-10.1); Chloride 102 mmol/L (98-107); Estimated GFR 93.03 (mL/min/1.73m2); FREE T4 1.12 ng/dL (0.76-1.46); Glucose 120 mg/dL (74-106); Magnesium 1.9 mg/dL (1.8-2.4); Sodium 143 mmol/L (136-145); TSH 0.81 uIU/Ml (0.36-3.74); Total Protein 6.7 g/dL (6.4-8.2)
[2024-02-06 07:49] LABS: Abs Immature Grans 0.03 10^3/uL (0.0-0.06); Absolute Basophil Count 0.04 10^3/uL (0.0-0.2); Absolute Eosinophil Count 0.24 10^3/uL (0.0-0.7); Absolute Lymphocyte Count 1.43 10^3/uL (1.2-3.4); Absolute Monocyte Count 0.51 10^3/uL (0.1-0.8); Basophils % 0.7 %; HCT 49.8 % (40.0-50.0); Immature Grans % 0.5 %; Lymphocytes % 23.6 %; MCH 30.8 pg (27.0-33.0); MCHC 32.1 % (32.0-36.0); MCV 96 fL (80-95); MPV 8.8 fL (8.0-11.0); Monocytes % 8.4 %; Neutrophils % 62.8 %; Platelet Count 172 10^3/uL (130-400); RDW 14.9 % (11.8-14.1); RDW-SD 52.5 fL; WBC 6.05 10^3/uL (4.4-10.8)
[2024-02-06 08:14] LABS: ALT 16 U/L (16-63); AST 9 U/L (15-37); Albumin 3.4 g/dL (3.4-5.0); Alkaline Phosphatase 87 U/L (46-116); BUN 10 mg/dL (7-18); Bilirubin, Total 0.31 mg/dL (0.2-1.0); Calcium 8.7 mg/dL (8.5-10.1); Chloride 105 mmol/L (98-107); Estimated GFR 81.98 (mL/min/1.73m2); FREE T4 0.93 ng/dL (0.76-1.46); Glucose 110 mg/dL (74-106); Magnesium 1.8 mg/dL (1.8-2.4); Potassium 4.5 mmol/L (3.5-5.1); Sodium 143 mmol/L (136-145); TSH 0.95 uIU/Ml (0.36-3.74); Total Protein 6.9 g/dL (6.4-8.2)
[2024-02-06] MEDS: Normal Saline Flush 10 ML SYR IVP (09:06)
== END 2024-02-12 23:59 | disposition home or self-care (01) ==
LOC: INF 02:47
PROVIDERS: Nurse Practitioner Family; PCP Internal Medicine; Visit Provider Nurse Practitioner Adult Health
DX: E03.2 Hypothyroidism due to medicaments and other exogenous substances (principal); Z45.2 Encounter for adjustment and management of vascular access device
CPT/HCPCS: 36591; 80053; 83735; 84439; 84443; 85025

== ENCOUNTER 2024-02-27 03:21 | Outpatient (RCR) | payer OTHER, SELFPAY ==
[2024-02-27 08:03] LABS: Abs Immature Grans 0.03 10^3/uL (0.0-0.06); Absolute Basophil Count 0.04 10^3/uL (0.0-0.2); Absolute Eosinophil Count 0.21 10^3/uL (0.0-0.7); Absolute Lymphocyte Count 1.21 10^3/uL (1.2-3.4); Absolute Monocyte Count 0.49 10^3/uL (0.1-0.8); Absolute Neutrophil Count 3.07 10^3/uL (1.2-6.7); Basophils % 0.8 %; Eosinophils % 4.2 %; HCT 48.5 % (40.0-50.0); HGB 15.9 g/dL (13.5-17.5); Immature Grans % 0.6 %; MCH 30.9 pg (27.0-33.0); MCHC 32.8 % (32.0-36.0); MCV 94 fL (80-95); MPV 8.7 fL (8.0-11.0); Monocytes % 9.7 %; Neutrophils % 60.7 %; Platelet Count 177 10^3/uL (130-400); RBC 5.14 10^6/uL (4.36-5.78); RDW 14.5 % (11.8-14.1); RDW-SD 50.2 fL; WBC 5.05 10^3/uL (4.4-10.8)
[2024-02-27] MEDS: Normal Saline Flush 10 ML SYR IVP (08:24)
[2024-02-27 08:31] LABS: ALT 16 U/L (16-63); AST 9 U/L (15-37); Albumin 3.3 g/dL (3.4-5.0); Alkaline Phosphatase 89 U/L (46-116); Anion Gap 7.6 mmol/L (3-11); BUN 13 mg/dL (7-18); Bilirubin, Total 0.39 mg/dL (0.2-1.0); CO2 32.4 mmol/L (21.0-32.0); CREATININE 0.9 mg/dL (0.70-1.30); Calcium 8.7 mg/dL (8.5-10.1); Chloride 102 mmol/L (98-107); Estimated GFR 93.03 (mL/min/1.73m2); FREE T4 1.09 ng/dL (0.76-1.46); Glucose 107 mg/dL (74-106); Magnesium 1.8 mg/dL (1.8-2.4); Potassium 4.4 mmol/L (3.5-5.1); Sodium 142 mmol/L (136-145); TSH 0.76 uIU/Ml (0.36-3.74); Total Protein 6.8 g/dL (6.4-8.2)
== END 2024-03-14 23:59 | disposition home or self-care (01) ==
LOC: INF 03:21
PROVIDERS: Nurse Practitioner Family; PCP Internal Medicine; Visit Provider Nurse Practitioner Adult Health
DX: E03.2 Hypothyroidism due to medicaments and other exogenous substances (principal); C34.11 Malignant neoplasm of upper lobe, right bronchus or lung; Z45.2 Encounter for adjustment and management of vascular access device
CPT/HCPCS: 36591; 80053; 83735; 84439; 84443; 85025

== ENCOUNTER 2024-03-21 02:16 | Outpatient (RCR) | payer OTHER, SELFPAY ==
[2024-03-21] MEDS: Normal Saline Flush 10 ML SYR IVP (08:31)
[2024-03-21 08:40] LABS: Abs Immature Grans 0.02 10^3/uL (0.0-0.06); Absolute Basophil Count 0.04 10^3/uL (0.0-0.2); Absolute Eosinophil Count 0.27 10^3/uL (0.0-0.7); Absolute Lymphocyte Count 1.27 10^3/uL (1.2-3.4); Absolute Monocyte Count 0.59 10^3/uL (0.1-0.8); Absolute Neutrophil Count 3.19 10^3/uL (1.2-6.7); Basophils % 0.7 %; HCT 52.3 % (40.0-50.0); HGB 16.7 g/dL (13.5-17.5); Immature Grans % 0.4 %; Lymphocytes % 23.6 %; MCH 31.9 pg (27.0-33.0); MCHC 31.9 % (32.0-36.0); MCV 100 fL (80-95); Neutrophils % 59.3 %; Platelet Count 156 10^3/uL (130-400); RBC 5.24 10^6/uL (4.36-5.78); RDW 14.9 % (11.8-14.1); RDW-SD 55.4 fL; WBC 5.38 10^3/uL (4.4-10.8)
[2024-03-21 09:36] LABS: ALT 18 U/L (16-63); AST 11 U/L (15-37); Albumin 3.4 g/dL (3.4-5.0); Alkaline Phosphatase 92 U/L (46-116); Anion Gap 4.6 mmol/L (3-11); BUN 9 mg/dL (7-18); Bilirubin, Total 0.36 mg/dL (0.2-1.0); CO2 35.4 mmol/L (21.0-32.0); CREATININE 0.9 mg/dL (0.70-1.30); Calcium 8.7 mg/dL (8.5-10.1); Chloride 103 mmol/L (98-107); Estimated GFR 93.03 (mL/min/1.73m2); FREE T4 0.75 ng/dL (0.76-1.46); Glucose 115 mg/dL (74-106); Potassium 4.5 mmol/L (3.5-5.1); Sodium 143 mmol/L (136-145); Total Protein 6.8 g/dL (6.4-8.2)
== END 2024-04-14 23:59 | disposition home or self-care (01) ==
LOC: INF 02:16
PROVIDERS: Nurse Practitioner Family; PCP Internal Medicine; Visit Provider Nurse Practitioner Adult Health
DX: E03.2 Hypothyroidism due to medicaments and other exogenous substances (principal); C34.11 Malignant neoplasm of upper lobe, right bronchus or lung; Z79.899 Other long term (current) drug therapy; Z45.2 Encounter for adjustment and management of vascular access device
CPT/HCPCS: 36591; 80053; 83735; 84439; 84443; 85025

== ENCOUNTER 2024-05-07 02:43 | Outpatient (RCR) | payer OTHER, SELFPAY ==
[2024-04-17] MEDS: Normal Saline Flush 10 ML SYR IVP (07:50)
[2024-04-17 08:24] LABS: Abs Immature Grans 0.03 10^3/uL (0.0-0.06); Absolute Basophil Count 0.03 10^3/uL (0.0-0.2); Absolute Eosinophil Count 0.32 10^3/uL (0.0-0.7); Absolute Lymphocyte Count 0.91 10^3/uL (1.2-3.4); Absolute Monocyte Count 0.52 10^3/uL (0.1-0.8); Absolute Neutrophil Count 3.75 10^3/uL (1.2-6.7); Basophils % 0.5 %; Eosinophils % 5.8 %; HCT 53.3 % (40.0-50.0); HGB 17.1 g/dL (13.5-17.5); Immature Grans % 0.5 %; Lymphocytes % 16.4 %; MCH 31.9 pg (27.0-33.0); MCHC 32.1 % (32.0-36.0); MCV 99 fL (80-95); MPV 8.7 fL (8.0-11.0); Monocytes % 9.4 %; Neutrophils % 67.4 %; Platelet Count 156 10^3/uL (130-400); RBC 5.36 10^6/uL (4.36-5.78); RDW 14.5 % (11.8-14.1); RDW-SD 53.3 fL; WBC 5.56 10^3/uL (4.4-10.8)
[2024-04-17 08:54] LABS: ALT 22 U/L (16-63); AST 17 U/L (15-37); Albumin 3.3 g/dL (3.4-5.0); Alkaline Phosphatase 97 U/L (46-116); BUN 7 mg/dL (7-18); Bilirubin, Total 0.41 mg/dL (0.2-1.0); CREATININE 0.8 mg/dL (0.70-1.30); Calcium 8.8 mg/dL (8.5-10.1); Chloride 104 mmol/L (98-107); FREE T4 0.94 ng/dL (0.76-1.46); Glucose 101 mg/dL (74-106); Potassium 4.3 mmol/L (3.5-5.1); Sodium 143 mmol/L (136-145); TSH 3.43 uIU/Ml (0.36-3.74); Total Protein 6.9 g/dL (6.4-8.2)
[2024-05-07 08:31] LABS: Abs Immature Grans 0.04 10^3/uL (0.0-0.06); Absolute Basophil Count 0.02 10^3/uL (0.0-0.2); Absolute Eosinophil Count 0.28 10^3/uL (0.0-0.7); Absolute Lymphocyte Count 0.95 10^3/uL (1.2-3.4); Absolute Monocyte Count 0.54 10^3/uL (0.1-0.8); Absolute Neutrophil Count 3.55 10^3/uL (1.2-6.7); Basophils % 0.4 %; Eosinophils % 5.2 %; HCT 52.1 % (40.0-50.0); HGB 16.2 g/dL (13.5-17.5); Immature Grans % 0.7 %; Lymphocytes % 17.7 %; MCH 31.6 pg (27.0-33.0); MCHC 31.1 % (32.0-36.0); MCV 102 fL (80-95); MPV 8.8 fL (8.0-11.0); Platelet Count 166 10^3/uL (130-400); RBC 5.13 10^6/uL (4.36-5.78); RDW 14.3 % (11.8-14.1); RDW-SD 54.4 fL; WBC 5.38 10^3/uL (4.4-10.8)
[2024-05-07 08:57] LABS: ALT 17 U/L (16-63); AST 9 U/L (15-37); Albumin 3.2 g/dL (3.4-5.0); Alkaline Phosphatase 102 U/L (46-116); Anion Gap 2.5 mmol/L (3-11); BUN 12 mg/dL (7-18); Bilirubin, Total 0.41 mg/dL (0.2-1.0); CO2 37.5 mmol/L (21.0-32.0); CREATININE 0.9 mg/dL (0.70-1.30); Chloride 102 mmol/L (98-107); Estimated GFR 93.03 (mL/min/1.73m2); FREE T4 0.86 ng/dL (0.76-1.46); Glucose 93 mg/dL (74-106); Magnesium 1.9 mg/dL (1.8-2.4); Potassium 4.5 mmol/L (3.5-5.1); Sodium 142 mmol/L (136-145); TSH 2.08 uIU/Ml (0.36-3.74)
[2024-05-07] MEDS: Normal Saline Flush 10 ML SYR IVP (11:54)
== END 2024-05-14 23:59 | disposition home or self-care (01) ==
LOC: INF 02:43
PROVIDERS: PCP Internal Medicine; Visit Provider Nurse Practitioner Adult Health
DX: C34.11 Malignant neoplasm of upper lobe, right bronchus or lung (principal); E03.2 Hypothyroidism due to medicaments and other exogenous substances
CPT/HCPCS: 36591; 80053; 83735; 84439; 84443; 85025

== ENCOUNTER 2024-08-06 07:40 | Outpatient (RCR) | payer OTHER, SELFPAY ==
[2024-08-06 08:27] LABS: Abs Immature Grans 0.02 10^3/uL (0.0-0.06); Absolute Basophil Count 0.04 10^3/uL (0.0-0.2); Absolute Eosinophil Count 0.29 10^3/uL (0.0-0.7); Absolute Monocyte Count 0.68 10^3/uL (0.1-0.8); Absolute Neutrophil Count 3.43 10^3/uL (1.2-6.7); Basophils % 0.7 %; Eosinophils % 5.1 %; HCT 50.3 % (40.0-50.0); HGB 16.4 g/dL (13.5-17.5); Immature Grans % 0.4 %; Lymphocytes % 21.2 %; MCH 32.2 pg (27.0-33.0); MCHC 32.6 % (32.0-36.0); MCV 99 fL (80-95); MPV 8.8 fL (8.0-11.0); Neutrophils % 60.6 %; Platelet Count 180 10^3/uL (130-400); RBC 5.09 10^6/uL (4.36-5.78); RDW 13.1 % (11.8-14.1); RDW-SD 48.2 fL; WBC 5.66 10^3/uL (4.4-10.8)
[2024-08-06 08:58] LABS: ALT 15 U/L (16-63); AST 11 U/L (15-37); Albumin 3.4 g/dL (3.4-5.0); Alkaline Phosphatase 96 U/L (46-116); Anion Gap 4.5 mmol/L (3-11); BUN 14 mg/dL (7-18); Bilirubin, Total 0.44 mg/dL (0.2-1.0); CO2 33.5 mmol/L (21.0-32.0); Calcium 8.6 mg/dL (8.5-10.1); Chloride 104 mmol/L (98-107); Estimated GFR 81.98 (mL/min/1.73m2); FREE T4 0.84 ng/dL (0.76-1.46); Glucose 115 mg/dL (74-106); Potassium 4.5 mmol/L (3.5-5.1); Sodium 142 mmol/L (136-145); TSH 3.14 uIU/mL (0.36-3.74); Total Protein 6.8 g/dL (6.4-8.2)
== END 2024-08-14 23:59 | disposition home or self-care (01) ==
LOC: INF 07:40
PROVIDERS: Visit Provider Nurse Practitioner Family
DX: C34.11 Malignant neoplasm of upper lobe, right bronchus or lung; Z45.2 Encounter for adjustment and management of vascular access device; E03.2 Hypothyroidism due to medicaments and other exogenous substances
CPT/HCPCS: 36591; 80053; 83735; 84439; 84443; 85025

== ENCOUNTER 2024-11-05 07:55 | Outpatient (RCR) | payer MEDICAID, SELFPAY ==
[2024-11-05] MEDS: Normal Saline Flush 10 ML SYR IVP (08:22)
[2024-11-05 08:45] LABS: Abs Immature Grans 0.02 10^3/uL (0.0-0.06); Absolute Basophil Count 0.03 10^3/uL (0.0-0.2); Absolute Eosinophil Count 0.31 10^3/uL (0.0-0.7); Absolute Monocyte Count 0.51 10^3/uL (0.1-0.8); Absolute Neutrophil Count 3.02 10^3/uL (1.2-6.7); Basophils % 0.6 %; Eosinophils % 6.1 %; HGB 15.9 g/dL (13.5-17.5); Immature Grans % 0.4 %; Lymphocytes % 23.6 %; MCH 32.1 pg (27.0-33.0); MCHC 32.4 % (32.0-36.0); MCV 99 fL (80-95); MPV 8.7 fL (8.0-11.0); Neutrophils % 59.3 %; Platelet Count 185 10^3/uL (130-400); RBC 4.96 10^6/uL (4.36-5.78); RDW 13.2 % (11.8-14.1); RDW-SD 48.3 fL; WBC 5.09 10^3/uL (4.4-10.8)
[2024-11-05 09:24] LABS: ALT 14 U/L (16-63); AST 11 U/L (15-37); Albumin 3.5 g/dL (3.4-5.0); Alkaline Phosphatase 104 U/L (46-116); Anion Gap 1.7 mmol/L (3-11); BUN 11 mg/dL (7-18); Bilirubin, Total 0.4 mg/dL (0.2-1.0); CO2 36.3 mmol/L (21.0-32.0); CREATININE 0.9 mg/dL (0.70-1.30); Calcium 8.7 mg/dL (8.5-10.1); Chloride 106 mmol/L (98-107); Estimated GFR 93.03 (mL/min/1.73m2); Glucose 103 mg/dL (74-106); Magnesium 2.2 mg/dL; Potassium 4.7 mmol/L (3.5-5.1); Sodium 144 mmol/L (136-145); TSH 1.16 uIU/mL (0.36-3.74); Total Protein 6.8 g/dL (6.4-8.2)
[2024-11-05 19:20] LABS: T4, Free 1.2 ng/dL (0.8-2.2)
== END 2024-11-12 23:59 | disposition home or self-care (01) ==
LOC: INF 07:55
PROVIDERS: Nurse Practitioner Family; PCP Nurse Practitioner; Visit Provider Internal Medicine Medical Oncology
DX: C34.11 Malignant neoplasm of upper lobe, right bronchus or lung (principal); G31.84 Mild cognitive impairment of uncertain or unknown etiology
CPT/HCPCS: 36591; 80053; 83735; 84439; 84443; 85025

== ENCOUNTER → 2024-11-15 12:30 | Outpatient (BNVA) | payer MEDICAID, SELFPAY | PROVIDERS: PCP Nurse Practitioner; Referring Provider Nurse Practitioner; Visit Provider Nurse Practitioner Adult Health | DX: G31.84 Mild cognitive impairment of uncertain or unknown etiology (principal); M54.2 Cervicalgia | CPT/HCPCS: 99213 ==

== ENCOUNTER 2025-06-10 00:28 | Outpatient (RCR) | payer MEDICAID, SELFPAY ==
[2025-06-10] MEDS: Normal Saline Flush 10 ML SYR IVP (07:42)
[2025-06-10 07:46] LABS: Abs Immature Grans 0.04 10^3/uL (0.0-0.06); HCT 50.3 % (40.0-50.0); HGB 15.6 g/dL (13.5-17.5); Immature Grans % 0.7 %; MCH 30.2 pg (27.0-33.0); MCHC 31.0 % (32.0-36.0); MCV 97 fL (80-95); MPV 8.9 fL (8.0-11.0); Platelet Count 177 10^3/uL (130-400); RBC 5.17 10^6/uL (4.36-5.78); RDW 14.1 % (11.8-14.1); RDW-SD 50.8 fL; WBC 5.36 10^3/uL (4.4-10.8)
[2025-06-10 08:18] LABS: ALT 15 U/L (16-63); AST 9 U/L (15-37); Albumin 3.5 g/dL (3.4-5.0); Alkaline Phosphatase 92 U/L (46-116); Anion Gap 6.1 mmol/L (3-11); BUN 9 mg/dL (7-18); Bilirubin, Total 0.5 mg/dL (0.2-1.0); CO2 35.9 mmol/L (21.0-32.0); Calcium 8.8 mg/dL (8.5-10.1); Chloride 103 mmol/L (98-107); Estimated GFR 92.45 (mL/min/1.73m2); Glucose 112 mg/dL (74-106); Magnesium 2.1 mg/dL (1.8-2.4); Potassium 4.4 mmol/L (3.5-5.1); Sodium 145 mmol/L (136-145); TSH 1.74 uIU/mL (0.36-3.74); Total Protein 7.1 g/dL (6.4-8.2)
== END 2025-06-14 23:59 | disposition home or self-care (01) ==
LOC: INF 00:28
PROVIDERS: PCP Nurse Practitioner; Visit Provider Internal Medicine Medical Oncology
DX: C78.02 Secondary malignant neoplasm of left lung (principal); E03.2 Hypothyroidism due to medicaments and other exogenous substances
CPT/HCPCS: 36415; 80053; 96523; 83735; 84439; 84443; 85025

== ENCOUNTER 2025-07-02 03:15 | Outpatient (RCR) | payer MEDICAID, SELFPAY ==
[2025-07-02 08:05] LABS: Abs Immature Grans 0.04 10^3/uL (0.0-0.06); HCT 46.2 % (40.0-50.0); HGB 14.4 g/dL (13.5-17.5); Immature Grans % 0.7 %; MCH 29.8 pg (27.0-33.0); MCHC 31.2 % (32.0-36.0); MCV 96 fL (80-95); MPV 8.5 fL (8.0-11.0); Platelet Count 191 10^3/uL (130-400); RBC 4.83 10^6/uL (4.36-5.78); RDW 14.3 % (11.8-14.1); RDW-SD 50.3 fL; WBC 5.72 10^3/uL (4.4-10.8)
[2025-07-02] MEDS: Normal Saline Flush 10 ML SYR IVP (09:14)
== END 2025-07-14 23:59 | disposition home or self-care (01) ==
LOC: INF 03:15
PROVIDERS: PCP Nurse Practitioner; Visit Provider Internal Medicine Medical Oncology
DX: C78.02 Secondary malignant neoplasm of left lung (principal); Z79.899 Other long term (current) drug therapy; Z45.2 Encounter for adjustment and management of vascular access device
CPT/HCPCS: 36591; 80053; 83735; 84439; 84443; 85025

== ENCOUNTER 2025-07-02 14:35 | Outpatient (REF) | payer MEDICAID, SELFPAY ==
[2025-07-02 10:26] LABS: ALT 8 U/L (10-49); AST 12 U/L (<34); Albumin 3.9 g/dL (3.4-5.0); Alkaline Phosphatase 90 U/L (46-116); Anion Gap 4.9 mmol/L (3-11); BUN 9 mg/dL (9-23); Bilirubin, Total 0.50 mg/dL (0.2-1.2); CO2 35.7 mmol/L (20.0-31.0); Calcium 8.7 mg/dL (8.3-10.6); Chloride 99 mmol/L (98-107); Glucose 138 mg/dL (74-106); Potassium 4.2 mmol/L (3.5-5.1); Sodium 140 mmol/L (136-145); Total Protein 6.5 g/dL (5.7-8.2)
== END 2025-07-02 14:36 | disposition home or self-care (01) ==
LOC: LBN 14:35
PROVIDERS: PCP Nurse Practitioner; Visit Provider Internal Medicine Medical Oncology
DX: C34.11 Malignant neoplasm of upper lobe, right bronchus or lung (principal); C78.02 Secondary malignant neoplasm of left lung; Z79.899 Other long term (current) drug therapy
CPT/HCPCS: 80053

== ENCOUNTER 2025-08-12 00:28 | Outpatient (RCR) | payer MEDICAID, SELFPAY ==
[2025-07-22] MEDS: Normal Saline Flush 10 ML SYR IVP (08:13)
[2025-07-22 08:17] LABS: Abs Immature Grans 0.03 10^3/uL (0.0-0.06); HCT 48.6 % (40.0-50.0); HGB 15.3 g/dL (13.5-17.5); Immature Grans % 0.5 %; MCH 29.9 pg (27.0-33.0); MCHC 31.5 % (32.0-36.0); MCV 95 fL (80-95); Platelet Count 238 10^3/uL (130-400); RBC 5.12 10^6/uL (4.36-5.78); RDW 14.3 % (11.8-14.1); RDW-SD 50.0 fL; WBC 6.30 10^3/uL (4.4-10.8)
[2025-07-22 08:35] LABS: Magnesium 1.8 mg/dL (1.6-2.6)
[2025-07-22 08:36] LABS: ALT 9 U/L (10-49); AST 11 U/L (<34); Albumin 4.0 g/dL (3.2-5.0); Alkaline Phosphatase 86 U/L (46-116); Anion Gap 6.4 mmol/L (3-11); BUN 12 mg/dL (9-23); Bilirubin, Total 0.40 mg/dL (0.2-1.2); CO2 33.6 mmol/L (20.0-31.0); Calcium 8.5 mg/dL (8.3-10.6); Chloride 104 mmol/L (98-107); Glucose 108 mg/dL (74-106); Potassium 4.4 mmol/L (3.5-5.1); Sodium 144 mmol/L (136-145); Total Protein 6.8 g/dL (5.7-8.2)
[2025-07-22 08:38] LABS: TSH 1.47 uIU/mL (0.55-4.78)
[2025-08-12 08:21] LABS: Abs Immature Grans 0.05 10^3/uL (0.0-0.06); HCT 46.9 % (40.0-50.0); HGB 14.8 g/dL (13.5-17.5); Immature Grans % 0.8 %; MCH 29.4 pg (27.0-33.0); MCHC 31.6 % (32.0-36.0); MCV 93 fL (80-95); MPV 9.0 fL (8.0-11.0); Platelet Count 183 10^3/uL (130-400); RBC 5.03 10^6/uL (4.36-5.78); RDW 14.4 % (11.8-14.1); RDW-SD 49.3 fL; WBC 6.41 10^3/uL (4.4-10.8)
[2025-08-12 08:38] LABS: ALT 7 U/L (10-49); AST 10 U/L (<34); Albumin 4.0 g/dL (3.2-5.0); Alkaline Phosphatase 97 U/L (46-116); Anion Gap 3.7 mmol/L (3-11); BUN 8 mg/dL (9-23); Bilirubin, Total 0.4 mg/dL (0.2-1.2); CO2 34.3 mmol/L (20.0-31.0); Calcium 8.4 mg/dL (8.3-10.6); Chloride 103 mmol/L (98-107); Glucose 113 mg/dL (74-106); Magnesium 1.9 mg/dL (1.6-2.6); Potassium 4.3 mmol/L (3.5-5.1); Sodium 141 mmol/L (136-145); Total Protein 6.7 g/dL (5.7-8.2)
[2025-08-12 08:42] LABS: TSH 1.62 uIU/mL (0.55-4.78)
[2025-08-12] MEDS: Normal Saline Flush 10 ML SYR IVP (09:11)
== END 2025-08-14 23:59 | disposition home or self-care (01) ==
LOC: INF 00:28
PROVIDERS: PCP Nurse Practitioner; Visit Provider Internal Medicine Medical Oncology
DX: E03.2 Hypothyroidism due to medicaments and other exogenous substances (principal); C34.11 Malignant neoplasm of upper lobe, right bronchus or lung; Z79.899 Other long term (current) drug therapy; Z45.2 Encounter for adjustment and management of vascular access device
CPT/HCPCS: 36591; 80053; 83735; 84439; 84443; 85025